=== PATIENT | female | born 1935 | race Caucasian/White ===

== ENCOUNTER 2017-04-24 13:34 | Outpatient (CLI) ==
--- NOTE | 2017-04-24 14:24 | CT ---
Exam: CT thoracic spine without contrast. Clinical indication: Back pain. TECHNIQUE: Axial unenhanced CT images from the lower cervical spine through the upper lumbar spine were obtained followed by coronal and sagittal reformats. Findings: There is a gentle thoracic kyphosis. The remainder of the alignment of the thoracic spine is within normal limits. There is no evidence of acute thoracic vertebral body fracture. The visualized ribs are intact. There is no evidence of spinal stenosis or neural foraminal narrowing throughout the thoracic spine. There is mild multilevel thoracic vertebral degenerative changes. The visualized soft tissues of the abdomen are unremarkable. There are coronary artery calcifications. The remainder of the visualized pulmonary parenchyma and m ediastinal structures are unremarkable. Impression: 1. No acute thoracic fracture. 2. Coronary artery calcifications.
--- NOTE | 2017-04-24 14:28 | CT ---
Exam: CT lumbar spine without contrast. Clinical indication: Low back pain. TECHNIQUE: Axial unenhanced CT images from the lower thoracic spine through the mid sacrum were obt ained followed by coronal and sagittal reformats. Findings: There are no prior studies available for comparison. There are five non-rib bearing lumbar vertebra. The alignment of the lumbar spine is within normal limits. There are no acute lumbar fractures. The T11-T12 through L2-L3 levels are within normal limits, without spinal stenosis or neural foramin al narrowing. At the L3-L4 level there is a asymmetric left broad-based posterior disc osteophyte complex associat e with bilateral facet hypertrophic degenerative changes and ligamentum flavum hypertrophy causing m oderate spinal stenosis and mild right and moderate to severe left neural foraminal narrowing. At the L4-L5 level there is a mild posterior disc osteophyte complex associate with bilateral facet hypertrophic degenerative changes and ligamentum flavum hypertrophy, causing at least moderate bilat eral neural foraminal narrowing. At the L5-S1 level there is a moderate posterior disc osteophyte complex associate with bilateral fa cet hypertrophic degenerative changes, causing moderate to severe right and mild left neural foramin al narrowing, but no spinal stenosis. There is aortoiliac atherosclerotic vascular calcifications. The remainder the visualized soft tiss ues are unremarkable. Impression: 1. Multilevel degenerative changes with spinal stenosis and neural foraminal narrowing, as describe d above on the level by level basis. 2. Aortoiliac atherosclerotic vascular calcifications.
== END 2017-04-24 13:35 | disposition home or self-care (01) ==
LOC: RAD 13:34
PROVIDERS: ATTEND Internal Medicine
DX: M54.9 Dorsalgia, unspecified (principal)

== ENCOUNTER 2017-04-27 09:15 | Outpatient (CLI) ==
--- NOTE | 2017-04-27 10:44 | MAMMO ---
EXAM: Digital screening mammogram HISTORY: Screening COMPARISON: 04/25/2016 FINDINGS: Digital MLO and CC views of the right and left breast were performed. There are scatter ed fibroglandular densities. There is no evidence for mass, asymmetry, distortion, or suspicious ca lcifications in either breast. IMPRESSION: 1. No evidence of malignancy in the right or left breast. 2. Annual screening mammogram is recommended in one year. BIRADS category 1, negative examination
== END 2017-04-27 09:16 ==
LOC: RAD 09:15
PROVIDERS: ATTEND Internal Medicine
DX: Z12.31 Encounter for screening mammogram for malignant neoplasm of breast (principal)

== ENCOUNTER 2017-07-28 08:47 | Outpatient (CLI) ==
[2017-07-28] MEDS ORDERED: PROLIA SUBCUT STA (09:30)
[2017-07-28 09:44] VITALS: BP 118/60; TEMP 97.7
== END 2017-07-28 09:55 | disposition home or self-care (01) ==
LOC: OPMED 08:47
PROVIDERS: ATTEND Internal Medicine
DX: M81.0 Age-related osteoporosis without current pathological fracture (principal)
CPT/HCPCS: 96372

== ENCOUNTER 2017-09-29 10:03 | Emergency (ER) ==
[2017-09-29 10:09] VITALS: BP 131/67; TEMP 98.3; BMI 27.4
--- NOTE | 2017-09-29 11:11 | CT ---
EXAM: CT chest without contrast. HISTORY: Initial presentation for right posterior chest pain and back pain following a fall. COMPARISON: None available. TECHNIQUE: Multiple axial images of the chest were obtained without intravenous contrast. Images we re reformatted in the sagittal and coronal planes. FINDINGS: Bilateral thyroid nodules are not well characterized. Calcified mediastinal and hilar lym ph nodes noted. Heart is mildly enlarged. Atherosclerotic calcifications are present. No pericardi al effusion identified. The lungs are clear without pleural effusion or pneumothorax. Degenerative changes present in the sp ine. No thoracic spine or rib fracture identified. No acute abnormality identified in the upper abdomen. IMPRESSION: No acute post-traumatic abnormality of the chest.
--- NOTE | 2017-09-29 11:14 | CT ---
EXAM: CT thoracic spine without contrast. HISTORY: Initial presentation for back pain following a fall. COMPARISON: 04/24/2017. TECHNIQUE: Multiple axial images of the thoracic spine were obtained without intravenous contrast. Images were reformatted in the sagittal and coronal planes. FINDINGS: The normal curvature and alignment are maintained. Vertebral body and intervertebral disc heights are normal. No fracture or subluxation is seen. Mild multilevel degenerative disc disease noted No significant central canal stenosis identified. Adjacent soft tissues are unremarkable. Visualized lungs are clear. Calcified granulomatous changes noted. Heart is mildly enlarged. Ather osclerotic calcifications are present. Low-density thyroid nodules seen bilaterally. Since the prior study, there has been no significant interval change. IMPRESSION: No acute abnormality of the thoracic spine.
--- NOTE | 2017-09-29 11:17 | CT ---
EXAM: CT of the lumbar spine without contrast History: Lower back pain. Comparison: Thoracic spine CT 09/29/2017, lumbar spine CT 04/24/2017 Technique: Multiplanar CT images through the lumbar spine were obtained without the administration o f IV contrast Findings: Atherosclerotic vascular calcifications. No acute fracture or subluxation of the lumbar spine. Moderate to severe degenerative disc disease at L5-S1 L1-L2: No significant disc bulge, central canal stenosis or neural foraminal narrowing. L1-L2: No significant disc bulge, central canal stenosis or neural foraminal narrowing. L2-L3: Small disc bulge effacing the anterior thecal sac with no significant central canal stenosis or neural foraminal narrowing. L3-L4: Modest left paracentral disc protrusion with moderate central canal stenosis. Moderate to se wilberto left and mild to moderate right bony neural foraminal narrowing secondary to ligamentous and fac et hypertrophy. There may be encroachment of the exiting left nerve root by the disc. L4-L5: Small to moderate left paracentral disc protrusion with mild central canal stenosis. Moderate left and mild right bony neural foraminal narrowing secondary to ligamentous and facet hypertrophy. L5-S1: Small to moderate disc protrusion with mild central canal stenosis. Moderate to severe right and moderate left bony neural foraminal narrowing secondary to uncovertebral and facet hypertrophy. Impression: 1. No acute osseous abnormality of the lumbar spine. 2. Moderate to severe degenerative disc disease at L5-S1. 3. Level by level analysis as detailed above and most significant at L3-L4 where there may be encroa chment of the exiting left nerve root.
--- NOTE | 2017-09-29 11:56 | ED.PDOC ---
General ED Provider: Dr. EMILIANO LONG Chief Complaint: Back Pain Stated Complaint: back pain Time Seen by Physician: 10:00 (fall2 day ago) Mode of Arrival: Walk-In Information Source: Patient Exam Limitations: No limitations Primary Care Provider: HUMZA SAENZ Nursing and Triage Documentation Reviewed and Agree: Yes Musculoskeletal Complaint Exam - Back Pain Complaint/Exam Mechanism of Injury: Reports: No known trauma Onset/Duration: 2 day Symptoms Are: Still present Timing: Constant Episodes Lasting: Minutes Initial Severity: Mild Current Severity: Mild Location: Reports: Discrete Character: Reports: Aching Aggravating: Reports: None Alleviating: Reports: None Associated Signs and Symptoms: Denies: Swelling, Redness, Bruising, Fever, Weakness, Numbness, Tingling, Abdominal pain, Flank pain, Bladder incontinence, Bowel incontinence, Weight loss, Pain with weight bearing TAD Risk Factors: Reports: Hypertension AAA Risk Factors: Reports: Hypertension Cauda Equina Risk Factors: Reports: None Epidural Abcess Risk Factors: Reports: None Related Surgical History: Reports: None Focal Tenderness: No Paraspinal Muscle Tenderness: No Paraspinal Muscle Spasm: No Scoliosis: No Lordosis: No Kyphosis: No SLR Test: Right Negative, Left Negative Hip Motion Testing Pain: Right Negative, Left Negative Focal Weakness: Present: None Focal Sensory Loss: Present: None Differential Diagnoses: Fracture, Sprain Review of Systems - Review Of Systems Constitutional: Reports: No symptoms Eyes: Reports: No symptoms Ears, Nose, Mouth, Throat: Reports: No symptoms Respiratory: Reports: No symptoms Cardiac: Reports: No symptoms GI: Reports: No symptoms : Reports: No symptoms Musculoskeletal: Reports: Back pain Skin: Reports: No symptoms Neurological: Reports: No symptoms Endocrine: Reports: No symptoms Hematologic/Lymphatic: Reports: No symptoms All Other Systems: Reviewed and Negative Past Medical History - Past Medical History Previously Healthy: Yes Endocrine: Reports: Dyslipidemia Cardiovascular: Reports: Hypertension Respiratory: Reports: None Hematological: Reports: None Gastrointestinal: Reports: GERD Genitourinary: Reports: None Neuro/Psych: Reports: None Musculoskeletal: Reports: None Cancer: Reports: None Last Menstrual Period: none - Surgical History General Surgical History: Reports: None - Family History Family History: Reports: None - Social History Smoking Status: Never smoker Hx Substance Use: No Alcohol Screening: None Physical Exam - Physical Exam Appearance: Well-appearing, No pain distress, Well-nourished Eyes: [place], EOMI, Conjunctiva clear ENT: Ears normal, Nose normal, Oropharynx normal Respiratory: Airway patent, Breath sounds clear, Breath sounds equal, Respirations nonlabored Cardiovascular: RRR, Pulses normal, No rub, No murmur GI/: Soft, Nontender, No masses, Bowel sounds normal, No Organomegaly Musculoskeletal: Normal strength, ROM intact, No edema, No calf tenderness Skin: Warm, Dry, Normal color Neurological: Sensation intact, Motor intact, Reflexes intact, Cranial nerves intact, Alert, Oriented Psychiatric: Affect appropriate, Mood appropriate Interpretation - Radiology Interpretation Radiology Interpretation By: Radiologist Radiology Results: No acute changes Critical Care Note - Critical Care Note Total Time (mins): 0 Course - Course Orders, Labs, Meds: Orders Category Date Time Status CT CHEST W/O CONTRAST Stat RADS 09/29/17 10:[address] LUMBAR SPINE W/O CONTRAST Stat RADS 09/29/17 10:[address] THORACIC SPINE W/O CONTRAST Stat RADS 09/29/17 10:13 Completed Vital Signs: Temp Pulse Resp BP Pulse Ox 09/29/17 10:04 98.3 F 68 18 131/67 95 Departure - Departure Time of Disposition: 11:56 Disposition: HOME SELF-CARE Discharge Problem: Low back pain Qualifiers: Chronicity: unspecified Back pain laterality: midline Sciatica presence: without sciatica Qualified Code(s): M54.5 - Low back pain Instructions: Low Back Strain (ED) Condition: Good Pt referred to PMD for follow-up: Yes Additional Instructions: Please call your Family Physician as soon as possible to schedule a follow-up appointment. Allergies/Adverse Reactions: Allergies iron Adverse Reaction (Verified 09/29/17 10:10) Home Medications: Ambulatory Orders Amlodipine Besylate/Benazepril [Lotrel 10-40 mg Capsule] 1 each PO DAILY Aspirin [Adult Low Dose Aspirin EC] 81 mg PO DAILY 08/21/15 Atorvastatin Calcium [Lipitor] 40 mg PO DAILY 08/21/15 Buspirone HCl 5 mg PO QID 08/21/15 Calcitonin,[place],Synthetic [Fortical] 1 spray NS DAILY 08/21/15 Doxepin HCl [Sinequan] 25 mg PO BEDTIME 08/21/15 Esomeprazole Magnesium [Nexium] 40 mg PO BID 08/21/15 Fexofenadine HCl [Thelma] 60 mg PO BID 08/21/15 Furosemide 40 mg PO DAILY 08/21/15 Gabapentin [Neurontin] 300 mg PO TID 08/21/15 Hydrocodone/Acetaminophen [Lortab 5-325 mg Tablet] 1 each PO BID PRN 08/21/15 Lysine HCl [l-Lysine] 500 mg PO DAILY 08/21/15 Multivit-Min/FA/Lycopen/Lutein [Centrum Silver Tablet] 1 each PO DAILY 08/21/15 Polyethylene Glycol 3350 [Miralax] 17 gm PO DAILY 08/21/15 Potassium Chloride 10 meq PO DAILY 08/21/15 Calcium Carbonate/Vitamin D3 [Calcium 500-Vit D3 600 Caplet] 1 each PO DAILY Denosumab [Prolia] 60 mg SQ DIRECTED 09/29/17 Iron 18 mg PO DIRECTED 09/29/17 Lorazepam [Ativan] 0.5 mg PO DAILY PRN 09/29/17 Disposition Discussed With: Patient
== END 2017-09-29 12:13 | disposition home or self-care (01) ==
LOC: ED 10:03
DX: M54.5 Low back pain (principal); W19.XXXA Unspecified fall, initial encounter
CPT/HCPCS: 99283

== ENCOUNTER 2018-01-27 08:41 | Outpatient (CLI) ==
[2018-01-27] MEDS ORDERED: PROLIA SUBCUT STA (09:03)
[2018-01-27 09:05] VITALS: BP 159/72; TEMP 98.4
== END 2018-01-27 09:20 | disposition home or self-care (01) ==
LOC: OPMED 08:41
PROVIDERS: ATTEND Internal Medicine
DX: M81.0 Age-related osteoporosis without current pathological fracture (principal)
CPT/HCPCS: 96372

== ENCOUNTER 2018-05-11 13:20 | Outpatient (CLI) ==
--- NOTE | 2018-05-11 14:55 | DEXA ---
Exam: Bone densitometry DEXA scan performed on the [employer] medical device. Comparison: 04/25/2016. Reason for exam: Osteoporosis. FINDINGS: Imaging is obtained of the lumbar spine and deemed to be adequate for interpretation. Total BMD of the lumbar spine measures 1.191 grams per centimeter squared T-score 0.1. Z-score 1.7 WHO classification suggests normal bone mineral density Imaging was obtained of the right and left hip and deemed to be adequate for interpretation. BMD of the left femoral neck measures 0.725 grams per centimeter squared T-score -2.3. Z-score -0.2 BMD of the right femoral neck measures 0.694 grams per centimeter squared T-score -2.5. Z-score -0.4 The total mean of the left and right hip measures 0.812 grams per centimeter squared T-score -1.5. Z-score 0.3 Impression: 1. WHO classification suggests osteoporosis in the right femoral neck and osteopenia in the left fem oral neck with normal bone mineral density in the lumbar spine. 2. WHO classification (FRAX) 10-year probability of fracture. Major osteoporotic fracture risk over 10 years. 19.4%. Hip fracture risk over 10 years. 6.9%.
== END 2018-05-11 13:21 | disposition home or self-care (01) ==
LOC: RAD 13:20
PROVIDERS: ATTEND Internal Medicine
DX: Z12.31 Encounter for screening mammogram for malignant neoplasm of breast (principal); M81.0 Age-related osteoporosis without current pathological fracture
CPT/HCPCS: 77067

== ENCOUNTER 2018-08-05 08:28 | Outpatient (CLI) | payer OTHER ==
[2018-08-05 08:57] VITALS: BP 112/63; TEMP 98.8
[2018-08-05] MEDS ORDERED: PROLIA SUBCUT STA (09:03)
== END 2018-08-05 08:29 | disposition home or self-care (01) ==
LOC: OPMED 08:28
PROVIDERS: ATTEND Internal Medicine
DX: M81.0 Age-related osteoporosis without current pathological fracture (principal)
CPT/HCPCS: 96372

== ENCOUNTER 2019-03-07 09:27 | Outpatient (CLI) | payer OTHER ==
[2019-03-07 09:42] VITALS: BP 137/74; TEMP 98.2
[2019-03-07] MEDS ORDERED: PROLIA SUBCUT STA (09:51)
== END 2019-03-07 09:28 | disposition home or self-care (01) ==
LOC: OPMED 09:27
PROVIDERS: ATTEND Internal Medicine
DX: M81.0 Age-related osteoporosis without current pathological fracture (principal)
CPT/HCPCS: 96372

== ENCOUNTER 2021-02-28 16:08 | Inpatient (IN) ==
[2021-02-28] MEDS ORDERED: ATROPINE SULFATE PFS IVP PRN (16:49)
[2021-02-28] MEDS ORDERED: NITROSTAT SL PRN (16:49)
[2021-02-28] MEDS ORDERED: TYLENOL PO PRN ×2 (16:49→16:54)
[2021-02-28] MEDS ORDERED: BUSPAR PO PRN (16:54)
[2021-02-28] MEDS ORDERED: NORCO 5-325 PO PRN (16:54)
[2021-02-28] MEDS ORDERED: CLEOCIN 600 MG/50 ML D5W 600 MG/50 ML BAG IV SCH (17:00)
[2021-02-28 17:06] LABS: BASOPHILS % (AUTO) 0.6 % (0.0-3.0); EOSINOPHILS # (AUTO) 0.1 K/ul (0.0-0.7); EOSINOPHILS % (AUTO) 1.1 % (0.0-7.0); HEMATOCRIT 33.9 % (37.0-47.0); HEMOGLOBIN 11.2 g/dl (12.0-16.0); IMMATURE GRANULOCYTE % (AUTO) 0.2 % (0.0-5.0); LYMPHOCYTES % (AUTO) 29.8 (10.0-50.0); MEAN CORPUSCULAR HEMOGLOBIN 30.5 pg (27.0-31.0); MEAN CORPUSCULAR VOLUME 92.4 fl (81.0-99.0); MONOCYTES # (AUTO) 0.6 K/uL (0.4-2.0); MONOCYTES % (AUTO) 9.6 (0-10); NEUTROPHILS # (AUTO) 3.9 K/ul (2.0-6.9); NEUTROPHILS % (AUTO) 58.7 % (42.2-75.2); PLATELET COUNT 174 10^3/uL (140-440); RDW COEFFICIENT OF VARIATION 12.8 % (11.6-14.8); RED BLOOD COUNT 3.67 10^6/ul (4.20-5.40); WHITE BLOOD COUNT 6.64 K/ul (4.6-10.2)
[2021-02-28 17:18] VITALS: BMI 28.5
[2021-02-28 17:19] LABS: ALANINE AMINOTRANSFERASE 9.4 U/L (0-35); ALBUMIN 3.9 g/dL (3.5-5.0); ALKALINE PHOSPHATASE 96.5 U/L (53-141); ASPARTATE AMINO TRANSFERASE 23.9 U/L (14-36); BILIRUBIN,TOTAL 0.48 mg/dL (0.2-1.3); BLOOD UREA NITROGEN 33.7 mg/dL (7-17); CALCIUM 8.62 mg/dL (8.4-10.2); CARBON DIOXIDE 28.5 mmol/L (22-30.0); CHLORIDE 101.9 mmol/L (98-107); CREATININE 1.99 mg/dL (0.60-1.30); GLUCOSE 91.3 mg/dL (74-106); POTASSIUM 3.95 mmol/L (3.5-5.1); SODIUM 138.8 mmol/L (134.5-145); TOTAL PROTEIN 7.1 g/dL (6.3-8.2)
[2021-02-28] MEDS: CLEOCIN 600 MG/50 ML D5W 600 MG/50 ML BAG IV SCH ×2 (17:38→23:03)
[2021-02-28] MEDS: BACTROBAN TP SCH ×2 (17:38→20:07)
[2021-02-28] MEDS: LASIX IVP SCH (17:39)
[2021-02-28] MEDS: NAMENDA PO SCH (20:07)
[2021-02-28] MEDS: NEURONTIN PO SCH (20:07)
[2021-02-28 20:15] LABS: BILIRUBIN,URINE Negative (NEGATIVE); CLARITY,URINE Clear (CLEAR); COLOR,URINE Yellow (YELLOW); GLUCOSE, URINE (UA) Negative (NEGATIVE); KETONES,URINE Negative (NEGATIVE); LEUKOCYTE ESTERASE ,URINE 2+ (NEGATIVE); NITRITE,URINE Negative (NEGATIVE); PH,URINE 5.5 (5-9); PROTEIN,URINE Negative (NEGATIVE); URINE, BLOOD Negative (NEGATIVE); UROBILINOGEN,URINE 0.2 (0.2)
[2021-02-28 20:21] LABS: HYALINE CASTS, URINE 0-2 (NOT PRESENT)
[2021-02-28] MEDS ORDERED: PROTONIX PO SCH (21:00)
[2021-03-01] MEDS: CLEOCIN 600 MG/50 ML D5W 600 MG/50 ML BAG IV SCH ×3 (05:01→20:43)
[2021-03-01 05:31] LABS: BASOPHILS # (AUTO) 0.1 K/uL (0-0.2); BASOPHILS % (AUTO) 0.8 % (0.0-3.0); EOSINOPHILS # (AUTO) 0.1 K/ul (0.0-0.7); EOSINOPHILS % (AUTO) 1.3 % (0.0-7.0); HEMOGLOBIN 10.8 g/dl (12.0-16.0); IMMATURE GRANULOCYTE % (AUTO) 0.3 % (0.0-5.0); LYMPHOCYTES # (AUTO) 2.2 K/uL (0.60-3.4); LYMPHOCYTES % (AUTO) 34.6 (10.0-50.0); MEAN CORPUSCULAR HEMOGLOBIN 29.9 pg (27.0-31.0); MEAN CORPUSCULAR HGB CONC 32.7 (31.8-35.4); MEAN CORPUSCULAR VOLUME 91.4 fl (81.0-99.0); MONOCYTES # (AUTO) 0.6 K/uL (0.4-2.0); MONOCYTES % (AUTO) 9.3 (0-10); NEUTROPHILS # (AUTO) 3.4 K/ul (2.0-6.9); NEUTROPHILS % (AUTO) 53.7 % (42.2-75.2); PLATELET COUNT 163 10^3/uL (140-440); RDW COEFFICIENT OF VARIATION 12.4 % (11.6-14.8); RED BLOOD COUNT 3.61 10^6/ul (4.20-5.40); WHITE BLOOD COUNT 6.36 K/ul (4.6-10.2)
[2021-03-01] MEDS: LASIX IVP SCH (05:32)
[2021-03-01 05:43] LABS: ALANINE AMINOTRANSFERASE 10.1 U/L (0-35); ALBUMIN 3.49 g/dL (3.5-5.0); ALKALINE PHOSPHATASE 95.4 U/L (53-141); BILIRUBIN,TOTAL 0.5 mg/dL (0.2-1.3); BLOOD UREA NITROGEN 34.2 mg/dL (7-17); CALCIUM 8.64 mg/dL (8.4-10.2); CARBON DIOXIDE 28.5 mmol/L (22-30.0); CHLORIDE 100.5 mmol/L (98-107); CREATININE 1.61 mg/dL (0.60-1.30); POTASSIUM 4.04 mmol/L (3.5-5.1); SODIUM 136.4 mmol/L (134.5-145); TOTAL PROTEIN 6.66 g/dL (6.3-8.2)
[2021-03-01] MEDS ORDERED: NITROSTAT SL PRN (07:39)
[2021-03-01] MEDS ORDERED: ATROPINE SULFATE PFS IVP PRN (07:39)
[2021-03-01] MEDS ORDERED: TYLENOL PO PRN (07:39)
[2021-03-01] MEDS: ASPIRIN EC PO SCH (08:55)
[2021-03-01] MEDS: MICRO-K CAP PO SCH (08:55)
[2021-03-01] MEDS: CALCIUM 500 + VIT D 5 MCG (200 IU) TABLET PO SCH (08:55)
[2021-03-01] MEDS: PROTONIX PO SCH ×2 (08:55→17:02)
[2021-03-01] MEDS: ZEBETA PO SCH (08:56)
[2021-03-01] MEDS: LIPITOR PO SCH (08:56)
[2021-03-01] MEDS: LOTENSIN PO SCH (08:56)
[2021-03-01] MEDS: SINEQUAN PO SCH (08:56)
[2021-03-01] MEDS: ARICEPT PO SCH (08:56)
[2021-03-01] MEDS: MULTIVITAMIN TABLET PO SCH (08:56)
[2021-03-01] MEDS: NEURONTIN PO SCH ×3 (08:56→20:43)
[2021-03-01] MEDS: BACTROBAN TP SCH ×2 (08:57→20:43)
[2021-03-01] MEDS ORDERED: NON-FORMULARY MEDICATION (Ferrous Sulfate 325 mg (65 mg iron) Tablet) PO SCH (09:00)
[2021-03-01] MEDS ORDERED: IRON PO SCH (09:00)
[2021-03-01] MEDS ORDERED: CALCIUM PO SCH (09:00)
[2021-03-01] MEDS ORDERED: NORVASC PO SCH (09:00)
[2021-03-01] MEDS ORDERED: NON-FORMULARY MEDICATION PO SCH (09:00)
[2021-03-01] MEDS ORDERED: [UNRECOGNIZED DRUG - OTHER] PO SCH (09:00)
[2021-03-01] MEDS: NON-FORMULARY MEDICATION (Lysine Hcl 500 MG tablet) PO SCH (09:01)
--- NOTE | 2021-03-01 09:30 | PCM.PROG ---
Attending Provider: ATTENDING PROVIDER: Dr. HUMZA SAENZ DATE OF SERVICE: 03/01/21 SUBJECTIVE: This 85 year old /WHITE F was hospitalized 02/28/21 hospitalized with bilateral leg edema and cellulitis, duration a few weeks. She has weeping from both legs. She is taking care of disabled , besides the multiple medical problems that she has. He is also being taken care of by son who doesn't live with him. The patient reluctantly agreed with hospitalization. Legs are looking somewhat better with some wrinkles this morning in both legs with less angry looking skin over both legsno drainage. REVIEW OF SYSTEMS: CONSTITUTIONAL: No night sweats. No fatigue, malaise, lethargy. No fever or chills. HEENT: Eyes: No visual changes. No eye pain. No eye discharge. ENT: No runny nose. No epistaxis. No sinus pain. No odynophagia. No congestion. RESPIRATORY: No cough, no congestion. No hemoptysis. No shortness of breath. CARDIOVASCULAR: No angina symptoms. No CHF symptoms. No atypical chest pain for CAD. No palpitations. No orthopnea.. GASTROINTESTINAL: No abdominal pain. No nausea or vomiting. No diarrhea or constipation. No hematemesis. No hematochezia. GENITOURINARY: No urgency. No frequency. No dysuria. No hematuria. No obstructive symptoms. No discharge. No pain. No significant abnormal bleeding. MUSCULOSKELETAL: No musculoskeletal pain; no joint swelling. NEUROLOGICAL: Awake, alert, oriented to time, place and person. No headache. No neck pain. No syncope. No seizures. No dizziness. PSYCHIATRIC: Not anxious. No depression. No suicidal thoughts. No homicidal thoughts. SKIN: No rash. Positive for redness and edema both legs. ENDOCRINE: No unexplained weight loss. No weight gain. HEMATOLOGIC/LYMPHATIC: No anemia. No purpura. No petechiae. No prolonged or excessive bleeding. No palpable lymph nodes. PHYSICAL EXAMINATION: GENERAL: The patient is awake, alert and oriented, lying/sitting in bed in no distress. VITAL SIGNS: Temperature 98.4 F, Pulse 58, Respiratory Rate 16, BP 124/59, Pulse Ox 94% HEENT: Head normocephalic, atraumatic. Eyes: Extraocular muscles are intact. Pupils are equal, round and reactive to light and accommodation. Ears: No lesions. Nose appeared normal. Throat: No exudate or erythema. NECK: Supple. No JVD, no carotid bruit. No lymphadenopathy or thyromegaly. LUNGS: Clear to auscultation. Percussion note normal. Chest symmetrical. HEART: S1, S2, no S3. No murmurs. No cyanosis or clubbing. No ascites. Pulses: Dorsalis pedis and posterior tibial pulses +1 to +2 both sides. ABDOMEN: Soft. Non-tender. Bowel sounds active. No CVA tenderness. No mass felt. EXTREMITIES: Lower extremity bilaterally with redness and edema, left more than right. Edema is less than yesterday. Full range of motion of all extremities, equal. NEUROLOGIC: No focal deficit. Cranial nerves II through XII are grossly intact. No headache, no double vision or headache. SKIN: Warm and dry. Intact. Turgor-normal. LYMPHATIC: No palpable lymph nodes/no lymphedema. MUSCULOSKELETAL: Normal joints with no swelling. Muscle tone is normal. LAB REVIEW: 03/01/21 05:24 03/01/21 05:24 03/01/21 05:24: Sodium 136.4, Potassium 4.04, Chloride 100.5, Carbon Dioxide 28.5, Anion Gap 11.44, BUN 34.2 H, Creatinine 1.61 H, Estimated GFR (MDRD) 31.00, BUN/Creatinine Ratio 21.24, Glucose 107.0 H, Calcium 8.64, Total Bilirubin 0.50, AST 22.0, ALT 10.1, Alkaline Phosphatase 95.4, Total Protein 6.66, Albumin 3.49 L, Globulin 3.17, Albumin/Globulin Ratio 1.10 03/01/21 05:24: WBC 6.36, RBC 3.61 L, Hgb 10.8 L, Hct 33.0 L, MCV 91.4, MCH 29.9, MCHC 32.7, RDW Coeff of Gabriella 12.4, Plt Count 163, Immature Gran % (Auto) 0.3, Neut % (Auto) 53.7, Lymph % (Auto) 34.6, Nolan % (Auto) 9.3, Eos % (Auto) 1.3, Baso % (Auto) 0.8, Neut # (Auto) 3.4, Lymph # (Auto) 2.2, Nolan # (Auto) 0.6, Eos # (Auto) 0.1, Baso # (Auto) 0.1, Immature Gran # (Auto) 0.0 02/28/21 20:05: Urine Color Yellow, Urine Clarity Clear, Urine pH 5.5, Ur Specific Victor 1.010, Urine Protein Negative, Urine Glucose (UA) Negative, Urine Ketones Negative, Urine Blood Negative, Urine Nitrite Negative, Urine Bilirubin Negative, Urine Urobilinogen 0.2, Ur Leukocyte Esterase 2+ H, Urine Microscopic WBC 5-10, Ur Squamous Epith Cells 2-5, Hyaline Casts 0-2 02/28/21 17:02: Sodium 138.8, Potassium 3.95, Chloride 101.9, Carbon Dioxide 28.5, Anion Gap 12.35, BUN 33.7 H, Creatinine 1.99 H, Estimated GFR (MDRD) 24.00, BUN/Creatinine Ratio 16.93, Glucose 91.3, Calcium 8.62, Total Bilirubin 0.48, AST 23.9, ALT 9.4, Alkaline Phosphatase 96.5, Total Protein 7.10, Albumin 3.90, Globulin 3.20, Albumin/Globulin Ratio 1.21 02/28/21 17:02: WBC 6.64, RBC 3.67 L, Hgb 11.2 L, Hct 33.9 L, MCV 92.4, MCH 30.5, MCHC 33.0, RDW Coeff of Gabriella 12.8, Plt Count 174, Immature Gran % (Auto) 0.2, Neut % (Auto) 58.7, Lymph % (Auto) 29.8, Nolan % (Auto) 9.6, Eos % (Auto) 1.1, Baso % (Auto) 0.6, Neut # (Auto) 3.9, Lymph # (Auto) 2.0, Nolan # (Auto) 0.6, Eos # (Auto) 0.1, Baso # (Auto) 0.0, Immature Gran # (Auto) 0.0 ASSESSMENT: Please see below. 1. Bilateral leg edema with cellulitis. 2. History of hypertension. 3. Chronic kidney disease. 4. Chronic anemia. PLAN: 1. Will monitor blood pressure. May have to substitute Amlodipine with something else for blood pressure. 2. Discontinue Amlodipine. 3. Continue IV Lasix for 2 more days then continue with p.o. Lasix. 4. Continue antibiotics. 5. Elevate legs. 6. Continue Benazepril 40 mg daily. 7. Echocardiogram to be done. 8. Chest x-ray has been ordered. Plan and coordination of the patient's care discussed in the presence of [employer] and nurse. CONDITION: Stable SCRIBED BY: KISHA FONTANA Sap Technical Developer scribed while in presence of service performed by Dr. HUMZA SAENZ on 03/01/21 ([id number])
--- NOTE | 2021-03-01 10:08 | DI ---
EXAM: Chest two views HISTORY: Hypertension, leg edema COMPARISON: None TECHNIQUE: Two views of the chest were performed FINDINGS: The lungs are clear. Trace fissural thickening and/or fluid in the lateral view. No visi ble pneumothorax. The heart is enlarged in size. The mediastinal contour is unchanged, noting ather osclerosis. There are no acute abnormalities of the bones. Old right rib fractures. IMPRESSION: No acute cardiopulmonary process.
--- NOTE | 2021-03-01 11:33 | HP ---
DATE OF SERVICE: 02/28/21 HISTORY OF PRESENT ILLNESS: 85-year-old female with complaint of legs red and swollen, oozing three open areas. She went to [facility] and was given Bactrim. PAST MEDICAL HISTORY: Acute rhinitis. Forgetfulness/Alzheimer's. Chronic kidney disease, Stage 3. History of right shoulder pain. Back pain T & L spine, severe. Osteoporosis - Prolia 02/18. Hypertension. Dyslipidemia. Generalized anxiety disorder. DJD spine. Esophageal stricture. Kyphosis. Cervical radiculopathy. A1C 5.4 on 01/19/21. Advised followups every 3 months PAST SURGICAL HISTORY: Status post hysterectomy REVIEW OF SYSTEMS: CONSTITUTIONAL: Fatigue. No fever. HEENT: No sinus drainage, no sore throat. RESPIRATORY: No cough, no congestion. CARDIOVASCULAR: No atypical chest pain for coronary artery disease. No angina, CHF symptoms, palpitations or shortness of breath. GASTROINTESTINAL: No melena or abdominal pain. No GERD. GENITOURINARY: No hematuria, no polyuria. BOX LOADER: No blackout, no dizziness, no headache, no double vision. MUSCULOSKELETAL: Osteoaoarthritic pain. ENDOCRINE: Increase in weight 6 lbs. SKIN: Not dry, no rash. PSYCHIATRIC: Not anxious, no depression, no suicidal thoughts, no homicidal thoughts. SOCIAL HISTORY: , Nonsmoker. No alcohol use. FAMILY HISTORY: Mother - cerebrovascular accident. MEDICATIONS: [place] 5/325 mg 1/2 b.i.d. Neurontin 300 mg t.i.d. Nexium 40 mg b.i.d. Lipitor 40 mg one daily Amlodipine-Benazepril 10-40 mg daily Lasix 40 mg one daily BuSpar 10 mg 1/2 q.i.d. p.r.n. K-tabs 10 mEq one daily MVI one daily ASA 81 mg one daily L-L6sine 500 mg daily Calcium Plus daily Feosol daily Tylenol 500 mg p.r.n. Tramadol 50 mg p.o. b.i.d. p.r.n. Bisoprolol 10 mg 1/2 tab daily Doxepin 25 mg one p.o. daily Aricept 5 mg p.o. daily Namenda 10 mg p.o. bedtime ALLERGIES: IRON PHYSICAL EXAMINATION: V/S: Pulse 68, BP 124/68, temperature 98.2, 02 sat 98. BMI 26.8. Height 5'5". Weight 161.0. GENERAL APPEARANCE: Oriented times three. HEENT: Normal. NECK: No JVP, no bruits. RESPIRATORY: Lungs are clear. CARDIOVASCULAR: S1, S2, no S3, no murmur. No cyanosis, clubbing. No ascites. GI/ABDOMEN: No tenderness. Bowel sounds are active. EXTREMITIES: +2 left lower extremity edema, +1 right lower extremity edema, clear purulent fluid. Pulses +1, equal. BOX LOADER: Deep tendon reflexes, sensory, motor and gait all normal. RECTAL/PELVIC: Colonoscopy screening 10/19 Dr. Liu. Pelvic- advised yearly. Mammogram 05/19 [facility]; bone density 05/19 [facility]. Refused colocare. ASSESSMENT: 1. Bilateral lower extremity cellulitis. 2. Bilateral leg edema. 3. Acute rhinitis. 4. Forgetfulness/Alzheimer's. 5. Chronic kidney disease, Stage 3. 6. History of right shoulder pain. 7. Back pain T & L spine, severe. 8. Osteoporosis - Prolia 02/18. 9. Hypertension. 10. Dyslipidemia. 11. Generalized anxiety disorder. 12. DJD spine. 13. Esophageal stricture. 14. Kyphosis. 15. Cervical radiculopathy. 16. A1C 5.4 on 01/19/21. PLAN: 1. Admit (respiratory panel by PCR done-went through tent) 2. Routine telemetry orders - no cardiac markers. 3. CBC, CMP now and daily. 4. Elevate legs. 5. Clindamycin 600 mg IV q.8hr. 6. Lasix 40 mg IV daily times two days, hold p.o. 7. Continue other home medications. 8. Regular diet. 9. Wound culture - wounds both legs. 10. Leave legs open to air - apply Bactroban b.i.d. 11. Daily weight. 12. 2D echocardiogram. TIME SPENT: More than 70 minutes. [facility]
--- NOTE | 2021-03-01 13:32 | RS.OTINEVL ---
Subjective - Patient information Date of Evaluation: 03/01/21 Date of Arrival on Unit: 02/28/21 Admitted From:: Home Diagnosis: BLE edema PRECAUTIONS: Fall risk Usual Living Arrangement: With Spouse Living Arrangement Comments: Pt lives at home with her . Pt has 3 steps and a rail to enter the house. 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 - Level of function Prior to this admission, the patient could do the following:: Independent Selfcare, Independent ADL's, Independent Ambulation Abilities prior to this admission: Pt was living at home walking without an assistive device. Pt was cooking, cleaning, and taking care of her . Current Level of Function: Partially Dependent Comments: has pain in her feet during ambulation. Current Equipment Used at Home: has a walker but does not use it at home. Pain Assessment - Pain Pain Score: 5 Side: bilateral Pain Location Body Site: Calf Pain Aggravating Factors: Changing Position, Standing, Walking Pain Alleviating Factors: Medication, Position Change Interventions - Objective Patient Orientation: Person, Place, Time, Situation Current Interventions: IV's, Telemetry Observation: Pt appears weak and has pain in BLE during ambulation. Pt reports she was not planning on coming the the hospital. Pt repeats her sentences 2-3x. Pt has wounds and redness on her bilateral shins. Interventions - ROM Right Upper Extremity AROM: WFL's Left Upper Extremity AROM: WFL's - Strength Right Upper Extremity Strength: Mild Weakness Left Upper Extremity Strength: Mild Weakness Balance - Sitting Balance Static Sitting Balance: Fair Dynamic Sitting Balance: Fair - Standing Balance Static Standing Balance: Fair Dynamic Standing Balance: Fair ADL Skills - Self Feeding Self Feeding: Independent - Grooming Grooming: Set Up Only - Bathing Bathing UE: Set Up Only Bathing LE: Min Assist - Dressing Dressing UE: Independent Dressing LE: Min Assist - Toilet Management Toileting Management: CGA Functional Mobility - Bed Mobility Rolling R/L: Independent Scooting: Independent Supine to Sit: Independent - Ambulation Weight Bearing Status: FWB Assistive Device Used: Rolling Walker Assistance needed with Ambulation: CGA - Safety Awareness Safety Awareness: Fair TASHA INDEX SCORE: . Additional Treatment Performed - Time with patient Length of Evaluation: 19 Total treatment time: 25 Activities Do you enjoy playing games?: Yes Would you be interested in leaving your room for activities?: Yes Would you enjoy group activities?: Yes Do you have difficulty with your vision?: Yes Patient Interests:: Watching Television Patient Education Patient Education: Education of diagnosis, Home Safety, Activity Modification, Education of Plan of Care Teaching Recipient: Patient Teaching Methods: Discussion Assessment Problem List:: Decreased level of function, Requires training/education, Decreased safety/Risk of falls, Weakness, Pain limits previous level of function Rehab Potential: Good Further Therapy Indicated?: Yes Evaluation Complexity: HISTORY: Medium, EXAM OF BODY SYSTEMS: Medium, CLINICAL DECISION MAKING: Medium Patient's Goal(s): To be able to return home as soon as possible. Short Term Goals - Goals GOAL 1: Pt to complete sink level ADLS with RW Mod-Independent. Goal to be met by: 03/05/21 GOAL 2: Pt to increase safety of toilet transfers to SUP. Goal to be met by: 03/05/21 GOAL 3: Pt to increase dyn. std. bal. to Fair+. Goal to be met by: 03/05/21 Legislative Advocate Goals GOAL 1: Pt to be mod-I with ADLS. Goal to be met by: 03/08/21 GOAL 2: Pt to increase safety of toilet transfers to Mod-I.. Goal to be met by: 03/08/21 GOAL 3: Pt to increase dyn. std. bal. to F+/G-. Plan Plan of Care: Therapeutic EX, Therapeutic Activity, Self-Care/Home Management Frequency of Treatment: 1-2 X day, as tolerated Duration of Treatment: 1 Week Anticipated Discharge Destination: Home Treatment Diagnosis (ICD 10 Codes): M62.81 General weakness, Z74.1 Need for assistance with personal care. Has the Physician been added for Co-signature?: Yes
--- NOTE | 2021-03-01 16:14 | RS.PTINEVL ---
Subjective - Patient information Date of Evaluation: 03/01/21 Date of Arrival on Unit: 02/28/21 Admitted From:: Home Diagnosis: BLE edema with cellulitis, difficulty walking, impaired balance Usual Living Arrangement: With Spouse Home Environment: House, Level/No stairs, Rail Medical History: Hypertension, Arthritis Medical History Comments:: CKD, anemia, LATEX ALLERGY?: No Surgical History: Hysterectomy Surgical History Comments:: B cataracts Medications: see chart Subjective Information/ Patient Comments:: pt states that she is doing ok. States she does not use a walker at home and that she is independent with e verything including driving. pt is forgetful and repeats herself multiple times. - Level of function Prior to this admission, the patient could do the following:: Independent Selfcare, Independent ADL's, Independent Ambulation Current Level of Function: Partially Dependent Current Equipment Used at Home: has a walker but does not use it at home. Pain Assessement - Location BLE Description: Aching Pain Behavior: Facial Grimacing Pain Aggravating Factors: Walking Effects of Pain: pt c/o feeling a "little sore" in her legs while ambulating Interventions - Objective Patient Orientation: Person, Place, Situation Current Interventions: IV's, Telemetry Observation: pt with edema BLE with significant erythema with open areas covered with eschar Range of Motion - ROM Right Upper Extremity AROM: WFL's Left Upper Extremity AROM: WFL's Right Lower Extremity AROM: WFL's Left Lower Extremity AROM: WFL's Muscle Strength - Muscle Strength Right Upper Extremity Strength: Mild Weakness (grossly 4/5) Left Upper Extremity Strength: Mild Weakness (grossly 4/5) Right Lower Extremity Strength: Mild Weakness (hip flex 4-/5, knee flex/ext 4/5) Left Lower Extremity Strength: Mild Weakness (hip flex 4-/5, knee flex/ext 4/5) Sensation - Sensation Right Upper Extremity Sensation: Intact/Normal Left Upper Extremity Sensation: Intact/Normal Right Lower Extremity Sensation: Impaired Left Lower Extremity Sensation: Impaired Palpation Palpation Findings: Tenderness (BLE ) Balance - Sitting Balance and Reactions Static Sitting Balance: Good Dynamic Sitting Balance: Fair - Standing Balance and Reactions Static Standing Balance: Poor Dynamic Standing Balance: Poor Standing Equilibrium Reactions: Delayed Left, Delayed Right Standing Protective Reactions: Delayed Left, Delayed Right Functional Mobility - Bed Mobility Rolling R/L: Min Assist, 1 person assist Supine to Sit: Min Assist, 1 person assist - Transfers Sit to Stand: Min Assist (min+), 1 person assist Stand to Sit: Min Assist, 1 person assist - Safety Awareness Safety Awareness: Poor TASHA INDEX SCORE: n/a Ambulation - Ambulation Assistive Device Used: Rolling Walker Orthotic/Prosthetic Device: No Distance: 50ft Assistance needed with Ambulation: Min Assist, 1 person assist Gait Deviations: Forward posture, Short stride, Deviates from path Factors Affecting Ambulation: Decreased Balance, Pain, Weakness, Decreased Safety, Cognitive Status, Limited Endurance Treatment time - Time with patient Length of Evaluation: 19 Total treatment time: 29 Patient Education - Education Patient Education: Activity Modification, Education of Plan of Care Teaching Recipient: Patient Teaching Methods: Discussion Comments: discussion regarding POC Assessment - Assessment Problem List:: Decreased level of function, Requires training/education, Decreased safety/Risk of falls, Weakness, Pain limits previous level of function, Cognitive status limits abilities Rehab Potential: Good Further Therapy Indicated?: Yes Candidate for Swing Bed for Therapy Services?: Feel pt may be at high level of function prior to swing. Would need to reassess at later date. Evaluation Complexity: HISTORY: Medium, EXAM OF BODY SYSTEMS: Medium, CLINICAL PRESENTATION: Medium, CLINICAL DECISION MAKING: Medium Patient's Goal(s): Go back home, my legs to be better Short Term Goals GOAL #1: pt independent with rolling and scooting in bed. Goal to be met by: 03/05/21 GOAL #2: Transfer sup to/from sit with CGA Goal to be met by: 03/05/21 GOAL #3: Sit to/from stand CGA Goal to be met by: 03/05/21 GOAL #4: pt amb with rwx 100ft with CGA no LOB Goal to be met by: 03/05/21 Singing Waiter Or Waitress Goals GOAL #1: pt transfer sup to/from sit to/from stand independently Goal to be met by: 03/07/21 GOAL #2: pt amb functional distances w/w/o AD with no LOB independently Goal to be met by: 03/07/21 GOAL #3: pt ascend/descend 2 steps with HR SBA Goal to be met by: 03/07/21 Plan Plan of Care: Therapeutic EX, Therapeutic Activity Other:: gait training Frequency of Treatment: 1-2 X day, as tolerated Duration of Treatment: 5 days Anticipated Discharge Destination: Home (possibly with PT) Treatment Diagnosis (ICD 10 Codes): gait difficulty R 26.2. impaired balance R 26.81. weakness M 62.81 Has the Physician been added for Co-signature?: Yes
[2021-03-01 16:27] LABS: CREATINE KINASE 158.7 U/L (30-135)
[2021-03-01 16:47] LABS: TROPONIN I < 0.012 ng/ml (0.0000-0.120)
[2021-03-01 16:51] LABS: CREATINE KINASE MB 0.529 ng/ml (0.0-2.38)
[2021-03-01] MEDS: ULTRAM PO PRN (20:42)
[2021-03-01] MEDS: NAMENDA PO SCH (20:42)
[2021-03-02 04:58] LABS: BASOPHILS % (AUTO) 0.5 % (0.0-3.0); EOSINOPHILS # (AUTO) 0.1 K/ul (0.0-0.7); EOSINOPHILS % (AUTO) 1.4 % (0.0-7.0); HEMATOCRIT 33.6 % (37.0-47.0); HEMOGLOBIN 10.8 g/dl (12.0-16.0); IMMATURE GRANULOCYTE % (AUTO) 0.2 % (0.0-5.0); LYMPHOCYTES # (AUTO) 2.7 K/uL (0.60-3.4); LYMPHOCYTES % (AUTO) 41.3 (10.0-50.0); MEAN CORPUSCULAR HEMOGLOBIN 29.7 pg (27.0-31.0); MEAN CORPUSCULAR HGB CONC 32.1 (31.8-35.4); MEAN CORPUSCULAR VOLUME 92.3 fl (81.0-99.0); MONOCYTES # (AUTO) 0.5 K/uL (0.4-2.0); MONOCYTES % (AUTO) 8.2 (0-10); NEUTROPHILS # (AUTO) 3.2 K/ul (2.0-6.9); NEUTROPHILS % (AUTO) 48.4 % (42.2-75.2); PLATELET COUNT 142 10^3/uL (140-440); RDW COEFFICIENT OF VARIATION 12.5 % (11.6-14.8); RED BLOOD COUNT 3.64 10^6/ul (4.20-5.40); WHITE BLOOD COUNT 6.58 K/ul (4.6-10.2)
[2021-03-02 05:11] LABS: ALANINE AMINOTRANSFERASE 8.7 U/L (0-35); ALBUMIN 3.11 g/dL (3.5-5.0); ALKALINE PHOSPHATASE 88.9 U/L (53-141); ASPARTATE AMINO TRANSFERASE 19.6 U/L (14-36); BILIRUBIN,TOTAL 0.4 mg/dL (0.2-1.3); BLOOD UREA NITROGEN 43.2 mg/dL (7-17); CALCIUM 8.7 mg/dL (8.4-10.2); CARBON DIOXIDE 27.7 mmol/L (22-30.0); CHLORIDE 103.6 mmol/L (98-107); CREATININE 1.58 mg/dL (0.60-1.30); GLUCOSE 100.2 mg/dL (74-106); POTASSIUM 4.16 mmol/L (3.5-5.1); SODIUM 138.8 mmol/L (134.5-145); TOTAL PROTEIN 6.01 g/dL (6.3-8.2)
[2021-03-02] MEDS: CLEOCIN 600 MG/50 ML D5W 600 MG/50 ML BAG IV SCH ×3 (05:17→20:42)
[2021-03-02] MEDS: LASIX TAB PO SCH (05:53)
[2021-03-02] MEDS: PROTONIX PO SCH ×2 (05:54→16:19)
[2021-03-02] MEDS: LOTENSIN PO SCH (09:20)
[2021-03-02] MEDS: MULTIVITAMIN TABLET PO SCH (09:20)
[2021-03-02] MEDS: ARICEPT PO SCH (09:20)
[2021-03-02] MEDS: NEURONTIN PO SCH ×3 (09:20→20:41)
[2021-03-02] MEDS: MICRO-K CAP PO SCH (09:20)
[2021-03-02] MEDS: ASPIRIN EC PO SCH (09:20)
[2021-03-02] MEDS: SINEQUAN PO SCH (09:20)
[2021-03-02] MEDS: CALCIUM 500 + VIT D 5 MCG (200 IU) TABLET PO SCH (09:20)
[2021-03-02] MEDS: BACTROBAN TP SCH (09:21)
[2021-03-02] MEDS: LIPITOR PO SCH (09:21)
[2021-03-02] MEDS: ZEBETA PO SCH (09:21)
[2021-03-02] MEDS: NON-FORMULARY MEDICATION (Lysine Hcl 500 MG tablet) PO SCH (09:29)
[2021-03-02] MEDS: ULTRAM PO PRN (09:29)
[2021-03-02] MEDS ORDERED: VANCOMYCIN 1 GM in SODIUM CHLORIDE 250 ML IV ONE (12:30)
[2021-03-02] MEDS: NAMENDA PO SCH (20:42)
[2021-03-03] MEDS: ULTRAM PO PRN ×3 (05:16→20:41)
[2021-03-03] MEDS: CLEOCIN 600 MG/50 ML D5W 600 MG/50 ML BAG IV SCH ×3 (05:16→20:41)
[2021-03-03 05:24] LABS: BASOPHILS % (AUTO) 0.5 % (0.0-3.0); EOSINOPHILS # (AUTO) 0.1 K/ul (0.0-0.7); EOSINOPHILS % (AUTO) 1.1 % (0.0-7.0); HEMATOCRIT 40.9 % (37.0-47.0); HEMOGLOBIN 13.3 g/dl (12.0-16.0); IMMATURE GRANULOCYTE % (AUTO) 0.3 % (0.0-5.0); LYMPHOCYTES # (AUTO) 3.1 K/uL (0.60-3.4); LYMPHOCYTES % (AUTO) 41.3 (10.0-50.0); MEAN CORPUSCULAR HGB CONC 32.5 (31.8-35.4); MEAN CORPUSCULAR VOLUME 92.1 fl (81.0-99.0); MONOCYTES # (AUTO) 0.5 K/uL (0.4-2.0); MONOCYTES % (AUTO) 6.8 (0-10); NEUTROPHILS # (AUTO) 3.8 K/ul (2.0-6.9); PLATELET COUNT 219 10^3/uL (140-440); RDW COEFFICIENT OF VARIATION 12.7 % (11.6-14.8); RED BLOOD COUNT 4.44 10^6/ul (4.20-5.40); WHITE BLOOD COUNT 7.51 K/ul (4.6-10.2)
[2021-03-03 05:36] LABS: ALANINE AMINOTRANSFERASE 10.6 U/L (0-35); ALBUMIN 4.28 g/dL (3.5-5.0); ALKALINE PHOSPHATASE 113.5 U/L (53-141); ASPARTATE AMINO TRANSFERASE 26.6 U/L (14-36); BILIRUBIN,TOTAL 0.64 mg/dL (0.2-1.3); BLOOD UREA NITROGEN 35.4 mg/dL (7-17); CALCIUM 9.26 mg/dL (8.4-10.2); CARBON DIOXIDE 28.2 mmol/L (22-30.0); CHLORIDE 103.7 mmol/L (98-107); CREATININE 1.19 mg/dL (0.60-1.30); GLUCOSE 95.6 mg/dL (74-106); POTASSIUM 4.06 mmol/L (3.5-5.1); SODIUM 140.1 mmol/L (134.5-145); TOTAL PROTEIN 8.23 g/dL (6.3-8.2)
[2021-03-03] MEDS: LASIX TAB PO SCH (05:43)
[2021-03-03] MEDS: PROTONIX PO SCH ×2 (05:43→16:00)
[2021-03-03] MEDS: VANCOMYCIN 1 GM in SODIUM CHLORIDE 250 ML IV SCH (08:44)
[2021-03-03] MEDS: FAMVIR PO SCH (08:44)
[2021-03-03] MEDS: LOTENSIN PO SCH (08:44)
[2021-03-03] MEDS: ZEBETA PO SCH (08:44)
[2021-03-03] MEDS: LIPITOR PO SCH (08:45)
[2021-03-03] MEDS: NEURONTIN PO SCH ×3 (08:45→20:40)
[2021-03-03] MEDS: MICRO-K CAP PO SCH (08:45)
[2021-03-03] MEDS: CALCIUM 500 + VIT D 5 MCG (200 IU) TABLET PO SCH (08:46)
[2021-03-03] MEDS: ASPIRIN EC PO SCH (08:46)
[2021-03-03] MEDS: SINEQUAN PO SCH (08:46)
[2021-03-03] MEDS: MULTIVITAMIN TABLET PO SCH (08:46)
[2021-03-03] MEDS: NON-FORMULARY MEDICATION (Lysine Hcl 500 MG tablet) PO SCH (08:46)
[2021-03-03] MEDS: ARICEPT PO SCH (08:55)
[2021-03-03] MEDS: BUSPAR PO SCH ×4 (12:55→20:40)
[2021-03-03] MEDS: NAMENDA PO SCH (20:40)
[2021-03-04] MEDS: CLEOCIN 600 MG/50 ML D5W 600 MG/50 ML BAG IV SCH (05:26)
[2021-03-04] MEDS: PROTONIX PO SCH ×2 (05:30→17:37)
[2021-03-04] MEDS: LASIX TAB PO SCH (05:30)
[2021-03-04 05:52] LABS: BASOPHILS % (AUTO) 0.5 % (0.0-3.0); EOSINOPHILS # (AUTO) 0.1 K/ul (0.0-0.7); EOSINOPHILS % (AUTO) 1.4 % (0.0-7.0); HEMATOCRIT 40.1 % (37.0-47.0); HEMOGLOBIN 12.7 g/dl (12.0-16.0); IMMATURE GRANULOCYTE % (AUTO) 0.1 % (0.0-5.0); LYMPHOCYTES # (AUTO) 3.3 K/uL (0.60-3.4); LYMPHOCYTES % (AUTO) 38.8 (10.0-50.0); MEAN CORPUSCULAR HEMOGLOBIN 29.4 pg (27.0-31.0); MEAN CORPUSCULAR HGB CONC 31.7 (31.8-35.4); MEAN CORPUSCULAR VOLUME 92.8 fl (81.0-99.0); MONOCYTES # (AUTO) 0.7 K/uL (0.4-2.0); MONOCYTES % (AUTO) 7.9 (0-10); NEUTROPHILS # (AUTO) 4.3 K/ul (2.0-6.9); NEUTROPHILS % (AUTO) 51.3 % (42.2-75.2); PLATELET COUNT 198 10^3/uL (140-440); RDW COEFFICIENT OF VARIATION 12.5 % (11.6-14.8); RED BLOOD COUNT 4.32 10^6/ul (4.20-5.40); WHITE BLOOD COUNT 8.38 K/ul (4.6-10.2)
[2021-03-04 06:04] LABS: ALANINE AMINOTRANSFERASE 9.4 U/L (0-35); ALBUMIN 3.83 g/dL (3.5-5.0); ALKALINE PHOSPHATASE 107.6 U/L (53-141); ASPARTATE AMINO TRANSFERASE 21.6 U/L (14-36); BILIRUBIN,TOTAL 0.55 mg/dL (0.2-1.3); BLOOD UREA NITROGEN 33.3 mg/dL (7-17); CALCIUM 8.89 mg/dL (8.4-10.2); CARBON DIOXIDE 26.5 mmol/L (22-30.0); CHLORIDE 104.6 mmol/L (98-107); CREATININE 1.27 mg/dL (0.60-1.30); GLUCOSE 94.3 mg/dL (74-106); POTASSIUM 4.3 mmol/L (3.5-5.1); SODIUM 139.4 mmol/L (134.5-145); TOTAL PROTEIN 7.43 g/dL (6.3-8.2)
[2021-03-04] MEDS ORDERED: LASIX IVP ONE (08:26)
[2021-03-04] MEDS: VANCOMYCIN 1 GM in SODIUM CHLORIDE 250 ML IV SCH (09:23)
[2021-03-04] MEDS: CALCIUM 500 + VIT D 5 MCG (200 IU) TABLET PO SCH (09:23)
[2021-03-04] MEDS: SINEQUAN PO SCH (09:24)
[2021-03-04] MEDS: LOTENSIN PO SCH (09:24)
[2021-03-04] MEDS: ZEBETA PO SCH (09:24)
[2021-03-04] MEDS: MICRO-K CAP PO SCH (09:24)
[2021-03-04] MEDS: MULTIVITAMIN TABLET PO SCH (09:24)
[2021-03-04] MEDS: ASPIRIN EC PO SCH (09:25)
[2021-03-04] MEDS: LIPITOR PO SCH (09:25)
[2021-03-04] MEDS: FAMVIR PO SCH (09:25)
[2021-03-04] MEDS: BUSPAR PO SCH ×4 (09:26→20:22)
[2021-03-04] MEDS: ARICEPT PO SCH (09:26)
[2021-03-04] MEDS: NON-FORMULARY MEDICATION (Lysine Hcl 500 MG tablet) PO SCH (09:28)
[2021-03-04] MEDS: NEURONTIN PO SCH ×3 (09:28→20:22)
--- NOTE | 2021-03-04 09:57 | PCM.PROG ---
Attending Provider: ATTENDING PROVIDER: Dr. HUMZA DURBIN This patient is seen with Terri Otto, Nurse Practitioner. DATE OF SERVICE: 03/04/21 SUBJECTIVE: This 85 year old /WHITE F was hospitalized 02/28/21. The patient is sitting in chair resting comfortably. Right lower extremity redness has improved. Open areas have scabbed and are drying. Swelling slightly improved. REVIEW OF SYSTEMS: CONSTITUTIONAL: No night sweats. No fatigue, malaise, lethargy. No fever or chills. HEENT: Eyes: No visual changes. No eye pain. No eye discharge. ENT: No runny nose. No epistaxis. No sinus pain. No odynophagia. No congestion. RESPIRATORY: No cough, no congestion. No hemoptysis. No shortness of breath. CARDIOVASCULAR: No angina symptoms. No CHF symptoms. No atypical chest pain for CAD. No palpitations. No orthopnea.. GASTROINTESTINAL: No abdominal pain. No nausea or vomiting. No diarrhea or constipation. No hematemesis. No hematochezia. GENITOURINARY: No urgency. No frequency. No dysuria. No hematuria. No obstructive symptoms. No discharge. No pain. No significant abnormal bleeding. MUSCULOSKELETAL: No musculoskeletal pain; no joint swelling. NEUROLOGICAL: Awake, alert, oriented to time, place and person. No headache. No neck pain. No syncope. No seizures. No dizziness. PSYCHIATRIC: Not anxious. No depression. No suicidal thoughts. No homicidal thoughts. SKIN: No rash. Leg edema and redness. ENDOCRINE: No unexplained weight loss. No weight gain. HEMATOLOGIC/LYMPHATIC: No anemia. No purpura. No petechiae. No prolonged or excessive bleeding. No palpable lymph nodes. PHYSICAL EXAMINATION: GENERAL: The patient is awake, alert and oriented, lying/sitting in bed in no distress. VITAL SIGNS: Temperature 98.1 F, Pulse 67, Respiratory Rate 18, BP 155/63, Pulse Ox 97% HEENT: Head normocephalic, atraumatic. Eyes: Extraocular muscles are intact. Pupils are equal, round and reactive to light and accommodation. Ears: No lesi ons. Nose appeared normal. Throat: No exudate or erythema. NECK: Supple. No JVD, no carotid bruit. No lymphadenopathy or thyromegaly. LUNGS: Diminished breath sounds. Clear to auscultation. Percussion note normal. Chest symmetrical. HEART: S1, S2, no S3. No murmurs. No cyanosis or clubbing. No ascites. Pulses: Dorsalis pedis and posterior tibial pulses +1 to +2 both sides. ABDOMEN: Soft. Non-tender. Bowel sounds active. No CVA tenderness. No mass felt. EXTREMITIES: Right lower extremity with improving erythema and trace edema. Left lower extremity with +2 edema, erythema from the ankle to mid hobbs anterior only. Two 1 inch wounds dry and scabbed, no drainage. Full range of motion of all extremities, equal. NEUROLOGIC: No focal deficit. Cranial nerves II through XII are grossly intact. No headache. No double vision. SKIN: Not dry. Intact. Turgor-normal. LYMPHATIC: No palpable lymph nodes/no lymphedema. MUSCULOSKELETAL: Normal joints with no swelling. Muscle tone is normal. LAB REVIEW: 03/04/21 05:45 03/04/21 05:45 03/04/21 05:45: Sodium 139.4, Potassium 4.30, Chloride 104.6, Carbon Dioxide 26.5, Anion Gap 12.60, BUN 33.3 H, Creatinine 1.27, Estimated GFR (MDRD) 40.00, BUN/Creatinine Ratio 26.22, Glucose 94.3, Calcium 8.89, Total Bilirubin 0.55, AST 21.6, ALT 9.4, Alkaline Phosphatase 107.6, Total Protein 7.43, Albumin 3.83, Globulin 3.60, Albumin/Globulin Ratio 1.06 03/04/21 05:45: WBC 8.38, RBC 4.32, Hgb 12.7, Hct 40.1, MCV 92.8, MCH 29.4, MCHC 31.7 L, RDW Coeff of Gabriella 12.5, Plt Count 198, Immature Gran % (Auto) 0.1, Neut % (Auto) 51.3, Lymph % (Auto) 38.8, [place] % (Auto) 7.9, Eos % (Auto) 1.4, Baso % (Auto) 0.5, Neut # (Auto) 4.3, Lymph # (Auto) 3.3, Austin # (Auto) 0.7, Eos # (Auto) 0.1, Baso # (Auto) 0.0, Immature Gran # (Auto) 0.0 ASSESSMENT: Please see below. 1. Bilateral leg edema with cellulitis. 2. History of hypertension. 3. Chronic kidney disease. 4. Chronic anemia. PLAN: 1. Bilateral venous doppler. 2. Keep legs elevated. 3. Give additional Lasix 20 mg IV now. Plan and coordination of the patient's care discussed in the presence of Fabric Cutter and nurse. CONDITION: Stable SCRIBED BY: KISHA FONTANA Male Impersonator scribed while in presence of service performed by Dr. Durbin/Terri Otto APRN on 03/04/21 ([id number])
[2021-03-04] MEDS: MAXIPIME 2 GM/50 ML D5W 2 GM/50 ML BAG IV SCH ×2 (11:24→20:22)
--- NOTE | 2021-03-04 13:14 | US ---
Exam: Watts-scale and color ultrasonographic evaluation of the right and left lower extremity venous structures of spectral waveform analysis. Comparison: None available. Reason for exam: Cellulitis. FINDINGS: There is spontaneous flow with compression and augmentation in the right and left common f emoral, greater saphenous, profunda, superficial femoral, popliteal, peroneal, posterior tibial, and anterior tibial veins. Impression: No ultrasonographic evidence of thrombus in the right or left lower extremity venous structures.
--- NOTE | 2021-03-04 14:57 | PN ---
DATE OF SERVICE: 03/03/2021 SUBJECTIVE: 85 year old white female hospitalized with bilateral lower extremity cellulitis and leg edema. The patient's legs were weeping, superficial ulcers. The patient has been on Vancomycin and Clindamycin. She doesn't have much pain as she had when she came in. REVIEW OF SYSTEMS: CONSTITUTIONAL: No night sweats. No fatigue, malaise, lethargy. No fever or chills. HEENT: Eyes: No visual changes. No eye pain. No eye discharge. ENT: No runny nose. No epistaxis. No sinus pain. No sore throat. No odynophagia. No congestion. RESPIRATORY: No cough, no congestion. No hemoptysis. No shortness of breath. CARDIOVASCULAR: No angina symptoms. No CHF symptoms. No atypical chest pain for CAD. No palpitations. No PND. No orthopnea. GASTROINTESTINAL: No abdominal pain. No nausea or vomiting. No diarrhea or constipation. No hematemesis. No hematochezia. GENITOURINARY: No urgency. No frequency. No dysuria. No hematuria. No obstructive symptoms. No discharge. No pain. No significant abnormal bleeding. MUSCULOSKELETAL: No musculoskeletal pain; no joint swelling. NEUROLOGICAL: No headache. No neck pain. No syncope. No seizures. No dizziness. PSYCHIATRIC: Anxious about the that she takes care of sitting with her at present time. No depression. No suicidal thoughts. No homicidal thoughts. SKIN: No rash. No lesions. No wounds. ENDOCRINE: No unexplained weight loss. No weight gain. HEMATOLOGIC/LYMPHATIC: No anemia. No purpura. No petechiae. No prolonged or excessive bleeding. No palpable lymph nodes. PHYSICAL EXAMINATION: VITAL SIGNS: Temperature 98.4, pulse 60, respiratory rate 14, blood pressure 125/76, pulse ox 96%. HEENT: Head normocephalic, atraumatic. Eyes: Extraocular muscles are intact. Pupils are equal, round and reactive to light and accommodation. Ears: No lesions. Nose appeared normal. Throat: No exudate or erythema. NECK: Supple. No JVD, no carotid bruit. No lymphadenopathy or thyromegaly. LUNGS: Decreased breath sounds but clear to auscultation. Percussion note normal. Chest symmetrical. HEART: S1, S2, no S3. No murmurs. No cyanosis or clubbing. No ascites. Pulses: Dorsalis pedis and posterior tibial pulses +1 to +2 bilaterally. ABDOMEN: Soft. Nontender. Bowel sounds active. No CVA tenderness. No mass felt. EXTREMITIES: Left leg has edema +1 with lower half is red. Intesity of redness is less than when she came in. Some drying up of swelling with inflammation the patient had some ulcers which have healthy looking eschar. Right leg is a lot better with less swelling. No real ulceration noted. Full range of motion of all extremities, equal. NEUROLOGIC: No focal deficit. Cranial nerves II through XII are grossly intact. No headache. No double vision. SKIN: Not dry. Intact. Turgor - normal. LYMPHATIC: No palpable lymph nodes/no lymphedema. MUSCULOSKELETAL: Normal joints with no swelling. Muscle tone is normal. LABS: Hgb 13.3, hct 40, WBC 7,500 normal differential, creatinine 1.1, BUN 35, potassium 4 ASSESSMENT: 1. 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 The patient also has multiple medical problems. PLAN: 1. Needs to elevate the legs 2. Continue IV Lasix 3. Monitor the kidney functions 4. Continue Antibiotics 5. Vancomycin was added along with Clindamycin CONDITION: Stable. It is to be noted that she may end up with Wound Care. The edema is controlled. The patient's echo is pending. TIME SPENT: More than 30 minutes. Plan and coordination of the patient's care discussed in the presence of nurse. JORDAN
[2021-03-04] MEDS: NAMENDA PO SCH (20:23)
[2021-03-05 04:45] LABS: BASOPHILS % (AUTO) 0.5 % (0.0-3.0); EOSINOPHILS # (AUTO) 0.1 K/ul (0.0-0.7); EOSINOPHILS % (AUTO) 0.6 % (0.0-7.0); HEMATOCRIT 32.6 % (37.0-47.0); HEMOGLOBIN 10.7 g/dl (12.0-16.0); IMMATURE GRANULOCYTE % (AUTO) 0.2 % (0.0-5.0); LYMPHOCYTES # (AUTO) 2.5 K/uL (0.60-3.4); LYMPHOCYTES % (AUTO) 28.9 (10.0-50.0); MEAN CORPUSCULAR HEMOGLOBIN 29.7 pg (27.0-31.0); MEAN CORPUSCULAR HGB CONC 32.8 (31.8-35.4); MEAN CORPUSCULAR VOLUME 90.6 fl (81.0-99.0); MONOCYTES # (AUTO) 0.9 K/uL (0.4-2.0); MONOCYTES % (AUTO) 9.9 (0-10); NEUTROPHILS # (AUTO) 5.1 K/ul (2.0-6.9); NEUTROPHILS % (AUTO) 59.9 % (42.2-75.2); PLATELET COUNT 181 10^3/uL (140-440); RDW COEFFICIENT OF VARIATION 12.6 % (11.6-14.8); WHITE BLOOD COUNT 8.56 K/ul (4.6-10.2)
[2021-03-05 04:59] LABS: ALANINE AMINOTRANSFERASE 7.7 U/L (0-35); ALBUMIN 3.31 g/dL (3.5-5.0); ASPARTATE AMINO TRANSFERASE 20.9 U/L (14-36); BILIRUBIN,TOTAL 0.65 mg/dL (0.2-1.3); BLOOD UREA NITROGEN 34.6 mg/dL (7-17); CALCIUM 8.47 mg/dL (8.4-10.2); CARBON DIOXIDE 26.7 mmol/L (22-30.0); CHLORIDE 103.7 mmol/L (98-107); CREATININE 1.4 mg/dL (0.60-1.30); GLUCOSE 107.8 mg/dL (74-106); POTASSIUM 4.07 mmol/L (3.5-5.1); SODIUM 135.9 mmol/L (134.5-145); TOTAL PROTEIN 6.53 g/dL (6.3-8.2)
[2021-03-05] MEDS: LASIX TAB PO SCH (06:18)
[2021-03-05] MEDS: PROTONIX PO SCH ×2 (06:18→17:53)
[2021-03-05] MEDS ORDERED: SODIUM CHLORIDE 1,000 ML IV SCH (09:00)
[2021-03-05] MEDS: MAXIPIME 2 GM/50 ML D5W 2 GM/50 ML BAG IV SCH ×2 (09:17→20:34)
[2021-03-05] MEDS: ASPIRIN EC PO SCH (09:18)
[2021-03-05] MEDS: FAMVIR PO SCH (09:18)
[2021-03-05] MEDS: ZEBETA PO SCH (09:19)
[2021-03-05] MEDS: SINEQUAN PO SCH (09:19)
[2021-03-05] MEDS: BUSPAR PO SCH ×4 (09:19→20:33)
[2021-03-05] MEDS: LOTENSIN PO SCH (09:19)
[2021-03-05] MEDS: MULTIVITAMIN TABLET PO SCH (09:20)
[2021-03-05] MEDS: CALCIUM 500 + VIT D 5 MCG (200 IU) TABLET PO SCH (09:20)
[2021-03-05] MEDS: LIPITOR PO SCH (09:20)
[2021-03-05] MEDS: NEURONTIN PO SCH ×3 (09:20→20:33)
[2021-03-05] MEDS: MICRO-K CAP PO SCH (09:20)
[2021-03-05] MEDS: ARICEPT PO SCH (09:20)
--- NOTE | 2021-03-05 09:35 | PCM.PROG ---
Attending Provider: ATTENDING PROVIDER: Dr. HUMZA SAENZ This patient is seen with Terri Otto, Nurse Practitioner. DATE OF SERVICE: 03/05/21 SUBJECTIVE: This 85 year old /WHITE F was hospitalized 02/28/21. Lying in bed resting comfortably. Redness left lower extremity slightly improved. Leg edema also improved from yesterday. No fever. Changed antibiotics yesterday to Cefepime and Vancomycin. REVIEW OF SYSTEMS: CONSTITUTIONAL: No night sweats. No fatigue, malaise, lethargy. No fever or chills. HEENT: Eyes: No visual changes. No eye pain. No eye discharge. ENT: No runny nose. No epistaxis. No sinus pain. No odynophagia. No congestion. RESPIRATORY: No cough, no congestion. No hemoptysis. No shortness of breath. CARDIOVASCULAR: No angina symptoms. No CHF symptoms. No atypical chest pain for CAD. No palpitations. No orthopnea.. GASTROINTESTINAL: No abdominal pain. No nausea or vomiting. No diarrhea or constipation. No hematemesis. No hematochezia. GENITOURINARY: No urgency. No frequency. No dysuria. No hematuria. No obstructive symptoms. No discharge. No pain. No significant abnormal bleeding. MUSCULOSKELETAL: Leg edema, leg redness. No musculoskeletal pain; no joint swelling. NEUROLOGICAL: Awake, alert, oriented to time, place and person. No headache. No neck pain. No syncope. No seizures. No dizziness. PSYCHIATRIC: Not anxious. No depression. No suicidal thoughts. No homicidal thoughts. SKIN: No rash. No lesions. No wounds. ENDOCRINE: No unexplained weight loss. No weight gain. HEMATOLOGIC/LYMPHATIC: No anemia. No purpura. No petechiae. No prolonged or excessive bleeding. No palpable lymph nodes. PHYSICAL EXAMINATION: GENERAL: The patient is awake, alert and oriented, lying/sitting in bed in no distress. VITAL SIGNS: Temperature 98.9 F, Pulse 67, Respiratory Rate 18, BP 146/63, Pulse Ox 93% HEENT: Head normocephalic, atraumatic. Eyes: Extraocular muscles are intact. Pupils are equal, round and reactive to light and accommodation. Ears: No lesions. Nose appeared normal. Throat: No exudate or erythema. NECK: Supple. No JVD, no carotid bruit. No lymphadenopathy or thyromegaly. LUNGS: Diminished breath sounds. Clear to auscultation. Percussion note normal. Chest symmetrical. HEART: S1, S2, no S3. No murmurs. No cyanosis or clubbing. No ascites. Pulses: Dorsalis pedis and posterior tibial pulses +1 to +2 both sides. ABDOMEN: Soft. Non-tender. Bowel sounds active. No CVA tenderness. No mass felt. EXTREMITIES: Left lower extremity trace edema with improving erythema on ant erior aspect. Right lower extremity no edema, no redness. Full range of motion of all extremities, equal. NEUROLOGIC: No focal deficit. Cranial nerves II through XII are grossly intact. No headache. No double vision. SKIN: Not dry. Intact. Turgor-normal. LYMPHATIC: No palpable lymph nodes/no lymphedema. MUSCULOSKELETAL: Normal joints with no swelling. Muscle tone is normal. LAB REVIEW: 03/05/21 04:30 03/05/21 04:30 03/05/21 04:30: Sodium 135.9, Potassium 4.07, Chloride 103.7, Carbon Dioxide 26.7, Anion Gap 9.57, BUN 34.6 H, Creatinine 1.40 H, Estimated GFR (MDRD) 36.00, BUN/Creatinine Ratio 24.71, Glucose 107.8 H, Calcium 8.47, Total Bilirubin 0.65, AST 20.9, ALT 7.7, Alkaline Phosphatase 95.0, Total Protein 6.53, Albumin 3.31 L , Globulin 3.22, Albumin/Globulin Ratio 1.02 03/05/21 04:30: WBC 8.56, RBC 3.60 L, Hgb 10.7 L, Hct 32.6 L D, MCV 90.6, MCH 29.7, MCHC 32.8, RDW Coeff of Gabriella 12.6, Plt Count 181, Immature Gran % (Auto) 0.2, Neut % (Auto) 59.9, Lymph % (Auto) 28.9, Schleicher % (Auto) 9.9, Eos % (Auto) 0.6, Baso % (Auto) 0.5, Neut # (Auto) 5.1, Lymph # (Auto) 2.5, Schleicher # (Auto) 0.9, Eos # (Auto) 0.1, Baso # (Auto) 0.0, Immature Gran # (Auto) 0.0 ASSESSMENT: Please see below. 1. Bilateral lower extremity cellulitis left greater than right. 2. Underlying chronic kidney disease. 3. Generalized weakness. PLAN: 1. Continue IV antibiotics. 2. Keep legs elevated. 3. IV fluids NS 50 mL/hr times one bag. Plan and coordination of the patient's care discussed in the presence of Lead Quality Technician and nurse. CONDITION: Stable SCRIBED BY: KISHA FONTANA Diesel Powerplant Mechanic scribed while in presence of service performed by Dr. Saenz/Terri Otto APRN on 03/05/21 ([id number])
--- NOTE | 2021-03-05 09:46 | PN ---
DATE OF SERVICE: 03/02/2021 SUBJECTIVE: 85 year old white female hospitalized with bilateral lower extremity edema with cellulitis. No more oozing. The patient still has redness. Ulcers have been scabbed over with no discharge. REVIEW OF SYSTEMS: CONSTITUTIONAL: No night sweats. No fatigue, malaise, lethargy. No fever or chills. HEENT: Eyes: No visual changes. No eye pain. No eye discharge. ENT: No runny nose. No epistaxis. No sinus pain. No sore throat. No odynophagia. No congestion. RESPIRATORY: No cough, no congestion. No hemoptysis. No shortness of breath. CARDIOVASCULAR: No angina symptoms. No CHF symptoms. No atypical chest pain for CAD. No palpitations. No PND. No orthopnea. GASTROINTESTINAL: No abdominal pain. No nausea or vomiting. No diarrhea or constipation. No hematemesis. No hematochezia. GENITOURINARY: No urgency. No frequency. No dysuria. No hematuria. No obstructive symptoms. No discharge. No pain. No significant abnormal bleeding. MUSCULOSKELETAL: No musculoskeletal pain; no joint swelling. NEUROLOGICAL: No headache. No neck pain. No syncope. No seizures. No dizziness. PSYCHIATRIC: Not anxious. No depression. No suicidal thoughts. No homicidal thoughts. SKIN: No rash. No lesions. No wounds. ENDOCRINE: No unexplained weight loss. No weight gain. HEMATOLOGIC/LYMPHATIC: No anemia. No purpura. No petechiae. No prolonged or excessive bleeding. No palpable lymph nodes. PHYSICAL EXAMINATION: VITAL SIGNS: Temperature 98.2, pulse 58, respiratory rate 18, blood pressure 140/70 and pulse ox 94% on room air. HEENT: Head normocephalic, atraumatic. Eyes: Extraocular muscles are intact. Pupils are equal, round and reactive to light and accommodation. Ears: No lesions. Nose appeared normal. Throat: No exudate or erythema. NECK: Supple. No JVD, no carotid bruit. No lymphadenopathy or thyromegaly. LUNGS: Decreased breath sounds but clear to auscultation. Percussion note normal. Chest symmetrical. HEART: S1, S2, no S3. No murmurs. No cyanosis or clubbing. No ascites. Pulses: Dorsalis pedis and posterior tibial pulses +1 to +2 bilaterally. ABDOMEN: Soft. Nontender. Bowel sounds active. No CVA tenderness. No mass felt. EXTREMITIES: Full range of motion of all extremities, equal. Left more swollen and has redness with ulcers than the right. 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 NEUROLOGIC: No focal deficit. Cranial nerves II through XII are grossly intact. No headache. No double vision. SKIN: Not dry. Intact. Turgor - normal. LYMPHATIC: No palpable lymph nodes/no lymphedema. MUSCULOSKELETAL: Normal joints with no swelling. Muscle tone is normal. LABS: Hgb 10.8, hct 33, WBC 6,500 normal differential, creatinine 1.5, BUN 43, potassium 4.1. Troponin negative. ASSESSMENT: 1. Bilateral leg edema with cellulitis of both lower extremities, left more than the right, Condition has somewhat improved with no oozing of fluid from her legs. Edema is definitely down with some redness still persists. PLAN: 1. Continue Clindamycin 2. Add Vancomycin 3. Cardiovascular status is stable. 4. Echo pending. TIME SPENT: More than 30 minutes. Plan and coordination of the patient's care discussed in the presence of nurse. JORDAN
[2021-03-05] MEDS: VANCOMYCIN 1 GM in SODIUM CHLORIDE 250 ML IV SCH (10:22)
[2021-03-05] MEDS: NON-FORMULARY MEDICATION (Lysine Hcl 500 MG tablet) PO SCH (10:54)
[2021-03-05] MEDS: NAMENDA PO SCH (20:33)
[2021-03-06 04:57] LABS: BASOPHILS # (AUTO) 0.1 K/uL (0-0.2); BASOPHILS % (AUTO) 0.6 % (0.0-3.0); EOSINOPHILS # (AUTO) 0.1 K/ul (0.0-0.7); EOSINOPHILS % (AUTO) 1.1 % (0.0-7.0); HEMATOCRIT 33.4 % (37.0-47.0); HEMOGLOBIN 10.8 g/dl (12.0-16.0); IMMATURE GRANULOCYTE % (AUTO) 0.2 % (0.0-5.0); MEAN CORPUSCULAR HEMOGLOBIN 29.8 pg (27.0-31.0); MEAN CORPUSCULAR HGB CONC 32.3 (31.8-35.4); MEAN CORPUSCULAR VOLUME 92.3 fl (81.0-99.0); MONOCYTES # (AUTO) 0.9 K/uL (0.4-2.0); MONOCYTES % (AUTO) 10.8 (0-10); NEUTROPHILS # (AUTO) 5.2 K/ul (2.0-6.9); NEUTROPHILS % (AUTO) 63.3 % (42.2-75.2); PLATELET COUNT 186 10^3/uL (140-440); RDW COEFFICIENT OF VARIATION 12.7 % (11.6-14.8); RED BLOOD COUNT 3.62 10^6/ul (4.20-5.40); WHITE BLOOD COUNT 8.17 K/ul (4.6-10.2)
[2021-03-06 05:13] LABS: ALANINE AMINOTRANSFERASE 8.9 U/L (0-35); ALBUMIN 3.49 g/dL (3.5-5.0); ASPARTATE AMINO TRANSFERASE 19.6 U/L (14-36); BILIRUBIN,TOTAL 0.55 mg/dL (0.2-1.3); BLOOD UREA NITROGEN 40.7 mg/dL (7-17); CALCIUM 8.57 mg/dL (8.4-10.2); CHLORIDE 105.5 mmol/L (98-107); CREATININE 1.53 mg/dL (0.60-1.30); GLUCOSE 107.6 mg/dL (74-106); POTASSIUM 3.88 mmol/L (3.5-5.1); SODIUM 139.6 mmol/L (134.5-145); TOTAL PROTEIN 6.83 g/dL (6.3-8.2)
[2021-03-06] MEDS: LASIX TAB PO SCH (05:48)
[2021-03-06] MEDS: PROTONIX PO SCH ×2 (05:48→16:30)
[2021-03-06] MEDS: CALCIUM 500 + VIT D 5 MCG (200 IU) TABLET PO SCH (09:43)
[2021-03-06] MEDS: MULTIVITAMIN TABLET PO SCH (09:44)
[2021-03-06] MEDS: SINEQUAN PO SCH (09:44)
[2021-03-06] MEDS: BUSPAR PO SCH ×4 (09:44→21:17)
[2021-03-06] MEDS: MICRO-K CAP PO SCH (09:44)
[2021-03-06] MEDS: FAMVIR PO SCH (09:44)
[2021-03-06] MEDS: ARICEPT PO SCH (09:44)
[2021-03-06] MEDS: ZEBETA PO SCH (09:44)
[2021-03-06] MEDS: LIPITOR PO SCH (09:45)
[2021-03-06] MEDS: LOTENSIN PO SCH (09:45)
[2021-03-06] MEDS: NEURONTIN PO SCH ×3 (09:45→21:17)
[2021-03-06] MEDS: MAXIPIME 2 GM/50 ML D5W 2 GM/50 ML BAG IV SCH ×2 (09:45→21:18)
[2021-03-06] MEDS: ASPIRIN EC PO SCH (09:45)
[2021-03-06] MEDS: NON-FORMULARY MEDICATION (Lysine Hcl 500 MG tablet) PO SCH (09:46)
[2021-03-06] MEDS: VANCOMYCIN 1 GM in SODIUM CHLORIDE 250 ML IV SCH (11:13)
[2021-03-06] MEDS: NAMENDA PO SCH (21:18)
[2021-03-07] MEDS: LASIX TAB PO SCH (05:50)
[2021-03-07] MEDS: PROTONIX PO SCH ×2 (05:50→16:19)
[2021-03-07 05:59] LABS: BASOPHILS # (AUTO) 0.1 K/uL (0-0.2); BASOPHILS % (AUTO) 0.6 % (0.0-3.0); EOSINOPHILS # (AUTO) 0.1 K/ul (0.0-0.7); EOSINOPHILS % (AUTO) 0.8 % (0.0-7.0); HEMATOCRIT 32.1 % (37.0-47.0); HEMOGLOBIN 10.4 g/dl (12.0-16.0); IMMATURE GRANULOCYTE % (AUTO) 0.4 % (0.0-5.0); LYMPHOCYTES # (AUTO) 2.3 K/uL (0.60-3.4); LYMPHOCYTES % (AUTO) 27.4 (10.0-50.0); MEAN CORPUSCULAR HEMOGLOBIN 29.9 pg (27.0-31.0); MEAN CORPUSCULAR HGB CONC 32.4 (31.8-35.4); MEAN CORPUSCULAR VOLUME 92.2 fl (81.0-99.0); MONOCYTES # (AUTO) 0.9 K/uL (0.4-2.0); MONOCYTES % (AUTO) 10.2 (0-10); NEUTROPHILS # (AUTO) 5.1 K/ul (2.0-6.9); NEUTROPHILS % (AUTO) 60.6 % (42.2-75.2); PLATELET COUNT 204 10^3/uL (140-440); RDW COEFFICIENT OF VARIATION 12.7 % (11.6-14.8); RED BLOOD COUNT 3.48 10^6/ul (4.20-5.40)
[2021-03-07 06:11] LABS: ALANINE AMINOTRANSFERASE 9.5 U/L (0-35); ALBUMIN 3.34 g/dL (3.5-5.0); ALKALINE PHOSPHATASE 84.3 U/L (53-141); ASPARTATE AMINO TRANSFERASE 24.3 U/L (14-36); BILIRUBIN,TOTAL 0.67 mg/dL (0.2-1.3); BLOOD UREA NITROGEN 44.4 mg/dL (7-17); CALCIUM 8.84 mg/dL (8.4-10.2); CARBON DIOXIDE 26.8 mmol/L (22-30.0); CHLORIDE 104.6 mmol/L (98-107); CREATININE 1.71 mg/dL (0.60-1.30); GLUCOSE 95.6 mg/dL (74-106); POTASSIUM 3.71 mmol/L (3.5-5.1); SODIUM 137.5 mmol/L (134.5-145); TOTAL PROTEIN 6.45 g/dL (6.3-8.2)
[2021-03-07] MEDS: NON-FORMULARY MEDICATION (Lysine Hcl 500 MG tablet) PO SCH (09:16)
[2021-03-07] MEDS: ASPIRIN EC PO SCH (09:36)
[2021-03-07] MEDS: NEURONTIN PO SCH ×3 (09:36→21:26)
[2021-03-07] MEDS: LIPITOR PO SCH (09:36)
[2021-03-07] MEDS: MICRO-K CAP PO SCH (09:36)
[2021-03-07] MEDS: CALCIUM 500 + VIT D 5 MCG (200 IU) TABLET PO SCH (09:36)
[2021-03-07] MEDS: ARICEPT PO SCH (09:37)
[2021-03-07] MEDS: LOTENSIN PO SCH (09:37)
[2021-03-07] MEDS: SINEQUAN PO SCH (09:37)
[2021-03-07] MEDS: ZEBETA PO SCH (09:37)
[2021-03-07] MEDS: MAXIPIME 2 GM/50 ML D5W 2 GM/50 ML BAG IV SCH ×2 (09:37→21:26)
[2021-03-07] MEDS: BUSPAR PO SCH ×4 (09:37→21:26)
[2021-03-07] MEDS: MULTIVITAMIN TABLET PO SCH (09:37)
[2021-03-07] MEDS: FAMVIR PO SCH (10:10)
[2021-03-07] MEDS: VANCOMYCIN 1 GM in SODIUM CHLORIDE 250 ML IV SCH (10:40)
--- NOTE | 2021-03-07 11:09 | PN ---
DATE OF SERVICE: 03/04/2021 SUBJECTIVE: The patient was seen and examined with the Nurse Practitioner. The patient's left leg still has redness. Scabbed over the lower side, drying up. The patient right leg has lost practically all the fluids. Left has less fluid but cellulitis is taking somewhat longer. Cardiovascular status is stable. We will continue Vancomycin and Clindamycin. TIME SPENT: More than 30 minutes. Plan and coordination of the patient's care discussed in the presence of nurse. JORDAN
--- NOTE | 2021-03-07 11:54 | PN ---
DATE OF SERVICE: 03/05/2021 SUBJECTIVE: The patient was seen and examined with the Nurse Practitioner. The patient's left leg cellulitis seems to be a lot better today. Less redness. Formation seems to be going in health fashion. Shorting of the eschar. Condition improving. TIME SPENT: More than 30 minutes. Plan and coordination of the patient's care discussed in the presence of nurse. JORDAN
[2021-03-07] MEDS: NAMENDA PO SCH (21:26)
[2021-03-08 05:37] LABS: BASOPHILS # (AUTO) 0.1 K/uL (0-0.2); BASOPHILS % (AUTO) 0.6 % (0.0-3.0); EOSINOPHILS # (AUTO) 0.1 K/ul (0.0-0.7); EOSINOPHILS % (AUTO) 1.8 % (0.0-7.0); HEMOGLOBIN 10.6 g/dl (12.0-16.0); IMMATURE GRANULOCYTE % (AUTO) 0.3 % (0.0-5.0); LYMPHOCYTES # (AUTO) 2.2 K/uL (0.60-3.4); LYMPHOCYTES % (AUTO) 27.5 (10.0-50.0); MEAN CORPUSCULAR HEMOGLOBIN 30.3 pg (27.0-31.0); MEAN CORPUSCULAR HGB CONC 33.1 (31.8-35.4); MEAN CORPUSCULAR VOLUME 91.4 fl (81.0-99.0); MONOCYTES # (AUTO) 0.9 K/uL (0.4-2.0); MONOCYTES % (AUTO) 10.8 (0-10); NEUTROPHILS # (AUTO) 4.7 K/ul (2.0-6.9); PLATELET COUNT 208 10^3/uL (140-440); RDW COEFFICIENT OF VARIATION 12.6 % (11.6-14.8); WHITE BLOOD COUNT 7.89 K/ul (4.6-10.2)
[2021-03-08 05:47] VITALS: BP 138/62; TEMP 99
[2021-03-08] MEDS: LASIX TAB PO SCH (05:49)
[2021-03-08] MEDS: PROTONIX PO SCH (05:49)
[2021-03-08 05:59] LABS: ALANINE AMINOTRANSFERASE 11.3 U/L (0-35); ALBUMIN 3.2 g/dL (3.5-5.0); ALKALINE PHOSPHATASE 77.8 U/L (53-141); ASPARTATE AMINO TRANSFERASE 22.8 U/L (14-36); BILIRUBIN,TOTAL 0.43 mg/dL (0.2-1.3); BLOOD UREA NITROGEN 51.9 mg/dL (7-17); CALCIUM 8.69 mg/dL (8.4-10.2); CARBON DIOXIDE 26.1 mmol/L (22-30.0); CHLORIDE 106.4 mmol/L (98-107); CREATININE 1.86 mg/dL (0.60-1.30); GLUCOSE 98.9 mg/dL (74-106); POTASSIUM 3.68 mmol/L (3.5-5.1); SODIUM 139.3 mmol/L (134.5-145); TOTAL PROTEIN 6.3 g/dL (6.3-8.2)
[2021-03-08] MEDS ORDERED: SODIUM CHLORIDE 1,000 ML IV SCH (09:00)
[2021-03-08] MEDS: LOTENSIN PO SCH (09:28)
[2021-03-08] MEDS: LIPITOR PO SCH (09:29)
[2021-03-08] MEDS: BUSPAR PO SCH (09:29)
[2021-03-08] MEDS: MICRO-K CAP PO SCH (09:29)
[2021-03-08] MEDS: ARICEPT PO SCH (09:29)
[2021-03-08] MEDS: NEURONTIN PO SCH (09:29)
[2021-03-08] MEDS: CALCIUM 500 + VIT D 5 MCG (200 IU) TABLET PO SCH (09:29)
[2021-03-08] MEDS: MULTIVITAMIN TABLET PO SCH (09:30)
[2021-03-08] MEDS: ASPIRIN EC PO SCH (09:30)
[2021-03-08] MEDS: SINEQUAN PO SCH (09:30)
[2021-03-08] MEDS: NON-FORMULARY MEDICATION (Lysine Hcl 500 MG tablet) PO SCH (09:30)
[2021-03-08] MEDS: ZEBETA PO SCH (09:31)
[2021-03-08] MEDS: MAXIPIME 2 GM/50 ML D5W 2 GM/50 ML BAG IV SCH (10:27)
--- NOTE | 2021-03-08 11:15 | CM.DICTOOL ---
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 CERVICAL RADICULOPATHY A1C 5.4 ON 01/19/21 PAST SURGICAL HISTORY: STATUS POST HYSTERECTOMY LAST VITALS Temp Pulse Resp BP Pulse Ox 99.0 F 60 16 138/62 94 L 03/08/21 05:46 03/08/21 05:46 03/08/21 05:46 03/08/21 05:46 03/08/21 10:00 TAKE THESE MEDICATIONS AT HOME Acetaminophen (Acetaminophen 500 Mg Tablet) 500 MG EVERY4-6 HOURS PRN PRN Reason: Headache Hydrocodone Bitart/Acetaminophen (Hydrocodone Bit/Acetaminophen 5/325 Mg Tablet) 0.5 tab PO BID PRN PRN Reason: Pain Last Admin: 03/02/21 16:19 Dose: 0.5 tab Documented by: Aspirin (Aspirin 81 Mg Tablet.) 81 mg PO DAILYWM [facility] Last Admin: 03/08/21 09:30 Dose: 81 mg Documented by: Atorvastatin Calcium (Atorvastatin Calcium 20 Mg Tablet) 40 mg PO DAILY [facility] Last Admin: 03/08/21 09:29 Dose: 40 mg Documented by: Benazepril HCl (Benazepril Hcl 10 Mg Tablet) 40 mg PO DAILY [facility] Last Admin: 03/08/21 09:28 Dose: 40 mg Documented by: Bisoprolol Fumarate (Bisoprolol Fumarate 5 Mg Tablet) 5 mg PO DAILY [facility] Last Admin: 03/08/21 09:31 Dose: 5 mg Documented by: Buspirone HCl (Buspirone Hcl 10 Mg Tablet) 5 mg PO QID [facility] Last Admin: 03/08/21 09:29 Dose: 5 mg Documented by: Calcium/Vitamin D (Calcium Carbonate/Vitamin D3 500 Mg/5 Mcg(200iu) 1 Each Tablet) 1 each PO DAILY [facility] Last Admin: 03/08/21 09:29 Dose: 1 each Documented by: Cefdinir (Cefdinir 300 Mg Capsule) 300 mg PO Q12HR [facility] X 10 DAYS -- (NEW) Donepezil HCl (Donepezil Hcl 10 Mg Tablet) 10 mg PO DAILY [facility] Last Admin: 03/08/21 09:29 Dose: 10 mg Documented by: Doxepin HCl (Doxepin Hcl 25 Mg Capsule) 25 mg PO DAILY [facility] Last Admin: 03/08/21 09:30 Dose: 25 mg Documented by: Furosemide (Furosemide 40 Mg Tablet) 40 mg PO QDAC [facility] Last Admin: 03/08/21 05:49 Dose: 40 mg Documented by: Gabapentin (Gabapentin 300 Mg Capsule) 300 mg PO TID [facility] Last Admin: 03/08/21 09:29 Dose: 300 mg Documented by: Memantine (Memantine Hcl 10 Mg Tablet) 10 mg PO BEDTIME [facility] Last Admin: 03/07/21 21:26 Dose: 10 mg Documented by: Multivitamins (Multivitamin 1 Tab) 1 tab PO DAILY [facility] Last Admin: 03/08/21 09:30 Dose: 1 tab Documented by: Non-Formulary Medication (Lysine Hcl) 500 mg PO DAILY [facility] Last Admin: 03/08/21 09:30 Dose: Not Given Documented by: Potassium Chloride (Potassium Chloride 10 Meq Capsule.Er) 10 meq PO DAILYWM [facility] Last Admin: 03/08/21 09:29 Dose: 10 meq Documented by: Tramadol HCl (Tramadol Hcl 50 Mg Tablet) 50 mg PO BID PRN PRN Reason: Pain Last Admin: 03/03/21 20:41 Dose: 50 mg Documented by: PROLIA 60 MG SQ DIRECTED NEXIUM 40 MG PO BID ALLERGIES iron Adverse Reaction (Verified 03/07/19 09:44) Diarrhea DISCONTINUED MEDICATIONS 1). FERROUS SULFATE 2). LOTREL NEW PRESCRIPTIONS: 1).OMNICEF 300 MG PO BID X 10 DAYS 2).LOTENSIN 40 MG PO DAILY SMOKING: N/A DISEASE SPECIFIC EDUCATION: EDEMA HEART HEALTHY DIET FALL PRECAUTIONS CELLULITIS COVID LAB REVIEW: 03/08/21 05:10 03/08/21 05:10 03/08/21 05:10: Sodium 139.3, Potassium 3.68, Chloride 106.4, Carbon Dioxide 26.1, Anion Gap 10.48, BUN 51.9 H, Creatinine 1.86 H, Estimated GFR (MDRD) 26.00, BUN/Creatinine Ratio 27.90, Glucose 98.9, Calcium 8.69, Total Bilirubin 0.43, AST 22.8, ALT 11.3, Alkaline Phosphatase 77.8, Total Protein 6.30, Albumin 3.20 L, Globulin 3.10, Albumin/Globulin Ratio 1.03 03/08/21 05:10: WBC 7.89, RBC 3.50 L, Hgb 10.6 L, Hct 32.0 L, MCV 91.4, MCH 30.3, MCHC 33.1, RDW Coeff of Gabriella 12.6, Plt Count 208, Immature Gran % (Auto) 0.3, Neut % (Auto) 59.0, Lymph % (Auto) 27.5, [place] % (Auto) 10.8 H, Eos % (Auto) 1.8, Baso % (Auto) 0.6, Neut # (Auto) 4.7, Lymph # (Auto) 2.2, [place] # (Auto) 0.9, Eos # (Auto) 0.1, Baso # (Auto) 0.1, Immature Gran # (Auto) 0.0 PLAN: DISCHARGE HOME TODAY : RETURN HOME WITH SPOUSE. FAMILY INFORMED DOES NOT NEED TO STAY ALONE. ACTIVITY: UP WITH WALKER WITH SUPERVISION FOLLOW [facility] [employer] KEEP LOWER EXTREMETIES ELEVATED AT ALL TIMES EXCEPT WHEN WALKING DIET: HEART HEALTHY MD FOLLOW UP: SEE DR. SAENZ/ BETO MCINTOSH APRN/ LILI RILEY APRN IN THE OFFICE ON SUNDAY, MARCH 14, 2021 @ 1145 AM CODE STATUS: DO NOT INTUBATE/ CPR ONLY FOLLOW UP WOUNDS: [facility] APPOINTMENT Thursday03/11/2021 @ [address] [facility] [address], [address] HOME HEALTH: REFERRAL SENT TO [facility] FOR SN, PT AND OT, MRS RUIZ REMAINS ALERT AND ORIENTED X 4 WITH SOME FORGETFULNESS. SHE HAS NO COMPLAINTS WITH BREATHING. NO ACUTE PAIN . STILL HAS CRUSTED AREAS TO HER LEGS, NO DRAINAGE. RT LEG WITH MINIMAL NON-PITTING AND LT LEG WITH 1+ PITTING EDEMA. SHE GETS UP WITH WALKER AND CGA. FEEDS SELF WITH NUTRITIONAL AT 75-100% AND FLUID INTAKE SUBSTANTIAL. SHE IS PLEASANT AND TALKS ABOUT BEING WITH HER . SON STATED THAT AND MR RUIZ HAVE BEEN ADAMENT ABOUT STAYING JUST THE TWO OF THEM. THERE ARE SITTERS INVOLVED AT THIS TIME. SHE DOES HAVE A WOUND CARE APPOINTMENT WITH [facility] AND REFERRAL SENT TO [facility] FOR SN, PT AND OT. MD BETO BRAY, ISIAH RILEY APRN
--- NOTE | 2021-03-08 11:35 | PCM.PROG ---
Attending Provider: ATTENDING PROVIDER: Dr. HUMZA SAENZ This patient is seen with Terri Otto, Nurse Practitioner. DATE OF SERVICE: 03/08/21 SUBJECTIVE: This 85 year old /WHITE F was hospitalized 02/28/21. The patient is resting comfortably. Leg edema and redness has improved. Area on left lower extremity is dry with thick scabbing. The patient has been eating well. REVIEW OF SYSTEMS: CONSTITUTIONAL: No night sweats. No fatigue, malaise, lethargy. No fever or chi lls. Weakness. HEENT: Eyes: No visual changes. No eye pain. No eye discharge. ENT: No runny nose. No epistaxis. No sinus pain. No odynophagia. No congestion. RESPIRATORY: No cough, no congestion. No hemoptysis. No shortness of breath. CARDIOVASCULAR: No angina symptoms. No CHF symptoms. No atypical chest pain for CAD. No palpitations. No orthopnea.. GASTROINTESTINAL: No abdominal pain. No nausea or vomiting. No diarrhea or constipation. No hematemesis. No hematochezia. GENITOURINARY: No urgency. No frequency. No dysuria. No hematuria. No obstructive symptoms. No discharge. No pain. No significant abnormal bleeding. MUSCULOSKELETAL: No musculoskeletal pain; no joint swelling. Leg redness. NEUROLOGICAL: Awake, alert, oriented to time, place and person. No headache. No neck pain. No syncope. No seizures. No dizziness. PSYCHIATRIC: Not anxious. No depression. No suicidal thoughts. No homicidal thoughts. SKIN: No rash. No lesions. No wounds. ENDOCRINE: No unexplained weight loss. No weight gain. HEMATOLOGIC/LYMPHATIC: No anemia. No purpura. No petechiae. No prolonged or excessive bleeding. No palpable lymph nodes. PHYSICAL EXAMINATION: GENERAL: The patient is awake, alert and oriented, lying in bed in no distress. VITAL SIGNS: Temperature 99.0 F, Pulse 60, Respiratory Rate 16, BP 138/62, Pulse Ox 95% HEENT: Head normocephalic, atraumatic. Eyes: Extraocular muscles are intact. Pupils are equal, round and reactive to light and accommodation. Ears: No lesions. Nose appeared normal. Throat: No exudate or erythema. NECK: Supple. No JVD, no carotid bruit. No lymphadenopathy or thyromegaly. LUNGS: Diminished breath sounds. Clear to auscultation. Percussion note normal. Chest symmetrical. HEART: S1, S2, no S3. No murmurs. No cyanosis or clubbing. No ascites. Pulses: Dorsalis pedis and posterior tibial pulses +1 to +2 both sides. ABDOMEN: Soft. Non-tender. Bowel sounds active. No CVA tenderness. No mass felt. EXTREMITIES: Minimal redness anterior left lower extremity. no redness right lower extremity. No edema. Full range of motion of all extremities, equal. NEUROLOGIC: No focal deficit. Cranial nerves II through XII are grossly intact. No headache. No double vision. SKIN: Not dry. Intact. Turgor-normal. LYMPHATIC: No palpable lymph nodes/no lymphedema. MUSCULOSKELETAL: Normal joints with no swelling. Muscle tone is normal. LAB REVIEW: 03/08/21 05:10 03/08/21 05:10 03/08/21 05:10: Sodium 139.3, Potassium 3.68, Chloride 106.4, Carbon Dioxide 26.1, Anion Gap 10.48, BUN 51.9 H, Creatinine 1.86 H, Estimated GFR (MDRD) 26.00, BUN/Creatinine Ratio 27.90, Glucose 98.9, Calcium 8.69, Total Bilirubin 0.43, AST 22.8, ALT 11.3, Alkaline Phosphatase 77.8, Total Protein 6.30, Albumin 3.20 L, Globulin 3.10, Albumin/Globulin Ratio 1.03 03/08/21 05:10: WBC 7.89, RBC 3.50 L, Hgb 10.6 L, Hct 32.0 L, MCV 91.4, MCH 30.3, MCHC 33.1, RDW Coeff of Gabriella 12.6, Plt Count 208, Immature Gran % (Auto) 0.3, Neut % (Auto) 59.0, Lymph % (Auto) 27.5, [place] % (Auto) 10.8 H, Eos % (Auto) 1.8, Baso % (Auto) 0.6, Neut # (Auto) 4.7, Lymph # (Auto) 2.2, [place] # (Auto) 0.9, Eos # (Auto) 0.1, Baso # (Auto) 0.1, Immature Gran # (Auto) 0.0 ASSESSMENT: Please see below. 1. Bilateral lower extremity cellulitis, improved 2. Chronic leg edema 3. CKD PLAN: 1. Normal saline at 75cc until discharge 2. Discharge home 3. Appointment with [facility] 4. Followup in office next week. 5. Consult with pharmacy for PO antibiotics for discharge 6. The patient would benefit from home health for wound care, nursing and PT/OT. t Plan and coordination of the patient's care discussed in the presence of Medical Receptionist Assistant and nurse. SCRIBED BY: MICHAEL PETERSEN [employer] Superintendent scribed while in presence of service performed by Dr. Saenz/Terri Otto APRN on 03/08/21 ([id number])
--- NOTE | 2021-03-08 14:10 | PN ---
DATE OF SERVICE: 03/06/2021 SUBJECTIVE: 85 year old white female hospitalized with bilateral lower extremity cellulitis and leg edema. The patient's cellulitis seems to be resolving on the left leg. Right leg looks a lot better. Edema practically has subsided on right leg. Left leg still is hold some fluid. He is up about going through physical therapy. She is feeling better. REVIEW OF SYSTEMS: CONSTITUTIONAL: No night sweats. No fatigue, malaise, lethargy. No fever or chills. HEENT: Eyes: No visual changes. No eye pain. No eye discharge. ENT: No runny nose. No epistaxis. No sinus pain. No sore throat. No odynophagia. No congestion. RESPIRATORY: No cough, no congestion. No hemoptysis. No shortness of breath. CARDIOVASCULAR: No angina symptoms. No CHF symptoms. No atypical chest pain for CAD. No palpitations. No PND. No orthopnea. GASTROINTESTINAL: No abdominal pain. No nausea or vomiting. No diarrhea or constipation. No hematemesis. No hematochezia. GENITOURINARY: No urgency. No frequency. No dysuria. No hematuria. No obstructive symptoms. No discharge. No pain. No significant abnormal bleeding. MUSCULOSKELETAL: No musculoskeletal pain; no joint swelling. Mild pains in the legs more left than the right. NEUROLOGICAL: No headache. No neck pain. No syncope. No seizures. No dizziness. PSYCHIATRIC: Not anxious. No depression. No suicidal thoughts. No homicidal thoughts. SKIN: No rash. No lesions. No wounds. ENDOCRINE: No unexplained weight loss. No weight gain. HEMATOLOGIC/LYMPHATIC: No anemia. No purpura. No petechiae. No prolonged or excessive bleeding. No palpable lymph nodes. PHYSICAL EXAMINATION: VITAL SIGNS: Temperature 97.3, pulse 64, respiratory rate 20, blood pressure 140/67 and pulse 99% on room air. HEENT: Head normocephalic, atraumatic. Eyes: Extraocular muscles are intact. Pupils are equal, round and reactive to light and accommodation. Ears: No lesions. Nose appeared normal. Throat: No exudate or erythema. NECK: Supple. No JVD, no carotid bruit. No lymphadenopathy or thyromegaly. LUNGS: Clear to auscultation. Percussion note normal. Chest symmetrical. HEART: S1, S2, no S3. No murmurs. No cyanosis or clubbing. No ascites. Pulses: Dorsalis pedis and posterior tibial pulses +1 to +2 bilaterally. ABDOMEN: Soft. Nontender. Bowel sounds active. No CVA tenderness. No mass felt. EXTREMITIES: Full range of motion of all extremities, equal. Left leg lower half seems to be less red. Pucker of the skin. Eschar seems to be healthy forming and getting hardened. No discharge noted. Right lower extremity practically normal with trace edema. NEUROLOGIC: No focal deficit. Cranial nerves II through XII are grossly intact. No headache. No double vision. SKIN: Not dry. Intact. Turgor - normal. LYMPHATIC: No palpable lymph nodes/no lymphedema. MUSCULOSKELETAL: Normal joints with no swelling. Muscle tone is normal. LABS: hgb 10.8, hct 33, WBC 8,000 normal differential, creatinine 1.5, BUN 40, potassium 3.8. ASSESSMENT: 1. Bilateral leg edema with cellulitis of the left lower extremity with some ulcers covered with eschar seems to be improving slowly. 2. Chronic anemia 3. Hypertension 4. Chronic kidney disease PLAN: 1. Elevate the legs 2. Continue diuretic 3. Continue antibiotics CONDITION: Stable TIME SPENT: More than 30 minutes. Plan and coordination of the patient's care discussed in the presence of nurse. JORDAN
[2021-03-08] MEDS ORDERED: OMNICEF PO SCH (21:00)
--- NOTE | 2021-03-11 11:14 | PN ---
DATE OF SERVICE: 03/07/2021 SUBJECTIVE: 85 year old white female hospitalized with bilateral lower extremity edema, +3 pitting with cellulitis. The patient's left leg cellulitis was worse than the right. Right practically has resolved with the treatment, left one doing a lot better the eschar formation seems to be healthy scab. The patient is on cefepime and Vancomycin. REVIEW OF SYSTEMS: CONSTITUTIONAL: No night sweats. No fatigue, malaise, lethargy. No fever or chills. HEENT: Eyes: No visual changes. No eye pain. No eye discharge. ENT: No runny nose. No epistaxis. No sinus pain. No sore throat. No odynophagia. No congestion. RESPIRATORY: No cough, no congestion. No hemoptysis. No shortness of breath. CARDIOVASCULAR: No angina symptoms. No CHF symptoms. No atypical chest pain for CAD. No palpitations. No PND. No orthopnea. GASTROINTESTINAL: No abdominal pain. No nausea or vomiting. No diarrhea or constipation. No hematemesis. No hematochezia. GENITOURINARY: No urgency. No frequency. No dysuria. No hematuria. No obstructive symptoms. No discharge. No pain. No significant abnormal bleeding. MUSCULOSKELETAL: No musculoskeletal pain; no joint swelling. NEUROLOGICAL: No headache. No neck pain. No syncope. No seizures. No dizziness. PSYCHIATRIC: Not anxious. No depression. No suicidal thoughts. No homicidal thoughts. SKIN: No rash. No lesions. No wounds. ENDOCRINE: No unexplained weight loss. No weight gain. HEMATOLOGIC/LYMPHATIC: No anemia. No purpura. No petechiae. No prolonged or excessive bleeding. No palpable lymph nodes. PHYSICAL EXAMINATION: VITAL SIGNS: Temperature 98.7, pulse 62, respiratory rate 18, blood pressure 130/60 and pulse ox 94%. HEENT: Head normocephalic, atraumatic. Eyes: Extraocular muscles are intact. Pupils are equal, round and reactive to light and accommodation. Ears: No lesions. Nose appeared normal. Throat: No exudate or erythema. NECK: Supple. No JVD, no carotid bruit. No lymphadenopathy or thyromegaly. LUNGS: Decreased breath sounds but clear to auscultation. Percussion note normal. Chest symmetrical. HEART: S1, S2, no S3. No murmurs. No cyanosis or clubbing. No ascites. Pulses: Dorsalis pedis and posterior tibial pulses +1 to +2 bilaterally. ABDOMEN: Soft. Nontender. Bowel sounds active. No CVA tenderness. No mass felt. EXTREMITIES: Left leg cellulitis seems to be resolving. No discharge noted. Full range of motion of all extremities, equal. NEUROLOGIC: No focal deficit. Cranial nerves II through XII are grossly intact. No headache. No double vision. SKIN: Not dry. Intact. Turgor - normal. LYMPHATIC: No palpable lymph nodes/no lymphedema. MUSCULOSKELETAL: Normal joints with no swelling. Muscle tone is normal. LABS: hgb 10.4, hct 32, WBC 8,400 normal differential, creatinine 1.7, BUN 44, potassium 3.7 ASSESSMENT: 1. Cellulitis of left lower leg seems to be resolving 2. Chronic kidney disease 3. Hypertension 4. Chronic anemia PLAN: 1. Discharge the patient home. 2. Set her up for Wound Care at [facility] 3. Home Health Care to take care of her wound at home, likely date of discharge tomorrow. CONDITION: Stable otherwise. TIME SPENT: More than 30 minutes. Plan and coordination of the patient's care discussed in the presence of nurse. JORDAN
--- NOTE | 2021-03-12 11:43 | ECHO2D ---
Date of Exam: 03/08/2021 Ordering Physician: DR. HUMZA SAENZ Room #: 110 Reason for Echo: INCREASED EDEMA, HTN, HYPERLIPIDEMIA M-Mode Normal Adult Results LV Dimensions Normal Adult Results AoV Opening excursions >1.6 >1.6 LVEDD-base- 3.5-5.8 4.9 Ao root dimensions 2.0-3.7 3.1 LVESD-base- 3.1-4.6 L. Atrium dimensions 1.9-3.8 4.4 Post. Wall thickness 0.8-1.1 1.2 IV septum (thickness) 0.7-1.2 1.2 Post. Wall excursion 0.72-1.3 NORMAL Septal motion NORMAL Systolic motion R. Ventricular cavity 1.5-2.0 NORMAL LVEF 60% 76% Paradoxical septal wall motion NORMAL 2-D : 2-D M Mode Echocardiogram was performed using apical four chamber and left parasternal long and short axis views. Tricuspid and aortic valves appear to be normal. CALCIFIC MITRAL VALVE ANNULUS-- Contractility of the left ventricle seems to be normal, so is the cavity size. ENLARGED LEFT ATRIAL CAVITY SIZE. Aortic root appears to be normal. There is no pericardial effusion. There is no thrombus noted in the left ventricle or left atrial cavity. M-MODE: MV: CALCIFIC MITRAL VALVE ANNULUS AV: NORMAL TV: NORMAL PV: CHAMBER SIZE: ENLARGED LEFT ATRIAL CAVITY WALL MOTION: NORMAL PERICARDIUM: NORMAL INTERPRETATION: 1. BORDERLINE LEFT VENTRICULAR HYPERTROPHY WITH ENLARGED LEFT ATRIAL CAVITY 2. CALCIFIC MITRAL VALVE ANNULUS 3. NORMAL LEFT VENTRICLE CONTRACTILITY 4. NORMAL VALVES MTDD
--- NOTE | 2021-03-25 13:18 | PN ---
DATE OF SERVICE: 03/08/2021 SUBJECTIVE: 85 year old white female was seen and examined with the Nurse Practitioner. The patient's condition has improved remarkably. Echocardiogram showed borderline LV cavity 5.5cm with normal LV contractility and enlarged left atrial cavity. The has borderline LVH. Valvular structures are normal. The patient is going to be discharged on Home Health Care and Wound Care. The patient's lower extremities looks a lot better. Left lower extremity with cellulitis has very faint redness surrounding two ulcers were are covered with healthy eschar. TIME SPENT: More than 30 minutes. Plan and coordination of the patient's care discussed in the presence of nurse. JORDAN
--- NOTE | 2021-03-25 13:47 | DS ---
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 FAMILY INFORMED DOES NOT NEED TO STAY ALONE.MD FOLLOW UP: SEE DR. SAENZ/ BETO MCINTOSH APRN/ LILI RILEY APRN IN THE OFFICE ON SUNDAY, MARCH 14, 2021 @ 1145 AM. CODE STATUS: DO NOT INTUBATE/ CPR ONLY FOLLOW UP WOUNDS: [facility] APPOINTMENT Thursday03/11/2021 @ [address]. HOME HEALTH: REFERRAL SENT TO [facility] FOR SN, PT AND OT, . TAKE THESE MEDICATIONS AT HOME: Acetaminophen (Acetaminophen 500 Mg Tablet) 500 MG EVERY4-6 HOURS PRN PRN Reason: Headache Hydrocodone Bitart/Acetaminophen (Hydrocodone Bit/Acetaminophen 5/325 Mg Tablet) 0.5 tab PO BID PRN PRN Reason: Pain Last Admin: 03/02/21 16:19 Dose: 0.5 tab Documented by: Aspirin (Aspirin 81 Mg Tablet.) 81 mg PO DAILYWM [facility] Last Admin: 03/08/21 09:30 Dose: 81 mg Documented by: Atorvastatin Calcium (Atorvastatin Calcium 20 Mg Tablet) 40 mg PO DAILY [facility] Last Admin: 03/08/21 09:29 Dose: 40 mg Documented by: Benazepril HCl (Benazepril Hcl 10 Mg Tablet) 40 mg PO DAILY [facility] Last Admin: 03/08/21 09:28 Dose: 40 mg Documented by: Bisoprolol Fumarate (Bisoprolol Fumarate 5 Mg Tablet) 5 mg PO DAILY [facility] Last Admin: 03/08/21 09:31 Dose: 5 mg Documented by: Buspirone HCl (Buspirone Hcl 10 Mg Tablet) 5 mg PO QID [facility] Last Admin: 03/08/21 09:29 Dose: 5 mg Documented by: Calcium/Vitamin D (Calcium Carbonate/Vitamin D3 500 Mg/5 Mcg(200iu) 1 Each Tablet) 1 each PO DAILY [facility] Last Admin: 03/08/21 09:29 Dose: 1 each Documented by: Cefdinir (Cefdinir 300 Mg Capsule) 300 mg PO Q12HR [facility] X 10 DAYS -- (NEW) Donepezil HCl (Donepezil Hcl 10 Mg Tablet) 10 mg PO DAILY [facility] Last Admin: 03/08/21 09:29 Dose: 10 mg Documented by: Doxepin HCl (Doxepin Hcl 25 Mg Capsule) 25 mg PO DAILY [facility] Last Admin: 03/08/21 09:30 Dose: 25 mg Documented by: Furosemide (Furosemide 40 Mg Tablet) 40 mg PO QDAC [facility] Last Admin: 03/08/21 05:49 Dose: 40 mg Documented by: Gabapentin (Gabapentin 300 Mg Capsule) 300 mg PO TID [facility] Last Admin: 03/08/21 09:29 Dose: 300 mg Documented by: Memantine (Memantine Hcl 10 Mg Tablet) 10 mg PO BEDTIME [facility] Last Admin: 03/07/21 21:26 Dose: 10 mg Documented by: Multivitamins (Multivitamin 1 Tab) 1 tab PO DAILY [facility] Last Admin: 03/08/21 09:30 Dose: 1 tab Documented by: Non-Formulary Medication (Lysine Hcl) 500 mg PO DAILY [facility] Last Admin: 03/08/21 09:30 Dose: Not Given Documented by: Potassium Chloride (Potassium Chloride 10 Meq Capsule.Er) 10 meq PO DAILYWM [facility] Last Admin: 03/08/21 09:29 Dose: 10 meq Documented by: Tramadol HCl (Tramadol Hcl 50 Mg Tablet) 50 mg PO BID PRN PRN Reason: Pain Last Admin: 03/03/21 20:41 Dose: 50 mg Documented by: PROLIA 60 MG SQ DIRECTED NEXIUM 40 MG PO BID ALLERGIES: iron Adverse Reaction (Verified 03/07/19 09:44) Diarrhea DISCONTINUED MEDICATIONS: 1). FERROUS SULFATE 2). LOTREL NEW PRESCRIPTIONS: 1).OMNICEF 300 MG PO BID X 10 DAYS 2).LOTENSIN 40 MG PO DAILY SMOKING: N/A DISEASE SPECIFIC EDUCATION: EDEMA HEART HEALTHY DIET FALL PRECAUTIONS CELLULITIS COVID LAB REVIEW: 03/08/21 05:10 03/08/21 05:10 03/08/21 05:10: Sodium 139.3, Potassium 3.68, Chloride 106.4, Carbon Dioxide 26.1, Anion Gap 10.48, BUN 51.9 H, Creatinine 1.86 H, Estimated GFR (MDRD) 26.00, BUN/Creatinine Ratio 27.90, Glucose 98.9, Calcium 8.69, Total Bilirubin 0.43, AST 22.8, ALT 11.3, Alkaline Phosphatase 77.8, Total Protein 6.30, Albumin 3.20 L, Globulin 3.10, Albumin/Globulin Ratio 1.03 03/08/21 05:10: WBC 7.89, RBC 3.50 L, Hgb 10.6 L, Hct 32.0 L, MCV 91.4, MCH 30.3, MCHC 33.1, RDW Coeff of Gabriella 12.6, Plt Count 208, Immature Gran % (Auto) 0.3, Neut % (Auto) 59.0, Lymph % (Auto) 27.5, [place] % (Auto) 10.8 H, Eos % (Auto) 1.8, Baso % (Auto) 0.6, Neut # (Auto) 4.7, Lymph # (Auto) 2.2, [place] # (Auto) 0.9, Eos # (Auto) 0.1, Baso # (Auto) 0.1, Immature Gran # (Auto) 0.0 ACTIVITY: UP WITH WALKER WITH SUPERVISION FOLLOW HOME HEALTH GUIDELINES KEEP LOWER EXTREMITIES ELEVATED AT ALL TIMES EXCEPT WHEN WALKING DIET: [facility]: 85 year old white female was seen in the office with bilateral leg swelling and weeping lower extremity +3-+4 pitting and on-pitting edema. The patient had cellulitis both lower extremity left worse than the right with superficial ulcers. 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 They have been for more than 65 years. The patient during the stay in the hospital with treated with IV Lasix, leg elevation higher than the hip, IV antibiotics initially Clindamycin later on switched to Vancomycin and Cefepime was added. The patient's condition improved slowly but remarkably. At the time of discharge the patient had faint redness couple of inches surrounding two ulcers that were covered with health eschar. She is going to be discharged on Omnicef 300mg twice a day for 10 days. Lotensin has been increased to 40mg. Lotrel has been discontinued. 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 Strongly advised to elevate the legs over her hips, cut down on salt. She was continued on Lasix and Potassium supplements. Rest of the medications were continued. The patient is going to have appointment with Wound Care in [place]. Also going to have Home Health Care to take care of her lower extremity. The patient has normal LV contractility, mild LV cavity enlargement, LA cavity enlargement. She has severe hypertension and chronic kidney disease. She has declined any further workup in a way of Dobutamine Stress Echo for possibility of coronary artery disease that could exist with her multiple risk factors. At the time of discharge condition is stable. TIME SPENT: More than 60 minutes. JORDAN
--- NOTE | 2021-03-25 13:48 | PN ---
02/28/2021: Level 5 03/01/2021: Intermediate 03/02/2021: Intermediate 03/03/2021: Intermediate 03/04/2021: Intermediate 03/05/2021: Intermediate 03/06/2021: Intermediate 03/07/2021: Intermediate 03/08/2021: D as in discharge MTDD
== END 2021-03-08 13:30 | disposition home or self-care (01) | DRG 593 ==
LOC: MEDSURG A 16:08
PROVIDERS: ADMIT Internal Medicine; ATTEND Internal Medicine

== ENCOUNTER 2021-07-05 09:59 | Inpatient (IN) ==
--- NOTE | 2021-07-05 10:52 | CT ---
EXAM: CT chest with and without contrast HISTORY: Atelectasis seen on CT abdomen pelvis 06/28/2021 COMPARISON: CT chest 09/29/2017 TECHNIQUE: Serial axial images of the chest were obtained after 75 ml of Visipaque IV contrast was a dministered. These were obtained from the lung apices to the upper abdomen. FINDINGS: The thyroid is unchanged with scattered low attenuation lesions and heterogeneity. Visual ized vessels demonstrate mild calcific atherosclerotic disease. There are filling defects in the sub segmental pulmonary arteries to the left lower lobe. No additional filling defect/thrombus is identi fied. Heart is normal in size. There are no pathologically enlarged lymph nodes. There is no pneumothorax. There is a small to moderate left effusion with adjacent left lower lobe a telectasis versus consolidation. The right lung is clear. Limited views of the soft tissues in the upper abdomen are unremarkable. There is degenerative dise ase of the spine. IMPRESSION: 1. Subsegmental pulmonary embolism in the left lower lobe with associated consolidation and effusion . A component of this consolidation may represent infarct. 2. Mild scattered atherosclerotic disease. 3. Stable heterogeneous and nodular thyroid gland. Created critical results were called to nurse carito Murray at 10:47 a.m. same day as exam. All CT scans are performed using dose optimization techniques as appropriate to the performed exam an d include at least one of the following: Automated exposure control, adjustment of the mA and/or kV according t o size, and the use of iterative reconstruction technique.
[2021-07-05 14:19] LABS: BORDETELLA PARAPERTUSSIS (PCR) NOT DETECTED (NOT DETECT); BORDETELLA PERTUSSIS (PCR) NOT DETECTED (NOT DETECT); CHLAMYDIA PNEUMONIAE (PCR) NOT DETECTED (NOT DETECT); CORONAVIRUS 229E (PCR) NOT DETECTED (NOT DETECT); CORONAVIRUS HKU1 (PCR) NOT DETECTED (NOT DETECT); CORONAVIRUS NL63 (PCR) NOT DETECTED (NOT DETECT); CORONAVIRUS OC43 (PCR) NOT DETECTED (NOT DETECT); HUMAN METAPNEUMOVIRUS (PCR) NOT DETECTED (NOT DETECT); HUMAN RHINOVIRUS/ENTEROV (PCR) NOT DETECTED (NOT DETECT); INFLUENZA B (PCR) NOT DETECTED (NOT DETECT); MYCOPLASMA PNEUMONIAE (PCR) NOT DETECTED (NOT DETECT); PARAINFLUENZA VIRUS 1 (PCR) NOT DETECTED (NOT DETECT); PARAINFLUENZA VIRUS 2 (PCR) NOT DETECTED (NOT DETECT); PARAINFLUENZA VIRUS 3 (PCR) NOT DETECTED (NOT DETECT); PARAINFLUENZA VIRUS 4 (PCR) NOT DETECTED (NOT DETECT); RESPIRATORY SYNCYTIAL V (PCR) NOT DETECTED (NOT DETECT); SARS_COV_2 (PCR) NOT DETECTED (NOT DETECT)
[2021-07-05 15:16] LABS: ADENOVIRUS (PCR) NOT DETECTED (NOT DETECT)
[2021-07-05] MEDS ORDERED: ATROPINE SULFATE PFS IVP PRN (17:43)
[2021-07-05] MEDS ORDERED: NITROSTAT SL PRN (17:43)
[2021-07-05 17:45] VITALS: BMI 28.9
[2021-07-05 18:10] LABS: BASOPHILS # (AUTO) 0.1 K/uL (0-0.2); BASOPHILS % (AUTO) 0.9 % (0.0-3.0); EOSINOPHILS # (AUTO) 0.1 K/ul (0.0-0.7); EOSINOPHILS % (AUTO) 0.9 % (0.0-7.0); HEMOGLOBIN 12.1 g/dl (12.0-16.0); IMMATURE GRANULOCYTE % (AUTO) 0.2 % (0.0-5.0); LYMPHOCYTES # (AUTO) 2.4 K/uL (0.60-3.4); LYMPHOCYTES % (AUTO) 36.6 (10.0-50.0); MEAN CORPUSCULAR HEMOGLOBIN 29.1 pg (27.0-31.0); MEAN CORPUSCULAR HGB CONC 31.8 (31.8-35.4); MEAN CORPUSCULAR VOLUME 91.3 fl (81.0-99.0); MONOCYTES # (AUTO) 0.6 K/uL (0.4-2.0); MONOCYTES % (AUTO) 8.6 (0-10); NEUTROPHILS # (AUTO) 3.5 K/ul (2.0-6.9); NEUTROPHILS % (AUTO) 52.8 % (42.2-75.2); PLATELET COUNT 214 10^3/uL (140-440); RDW COEFFICIENT OF VARIATION 13.2 % (11.6-14.8); RED BLOOD COUNT 4.16 10^6/ul (4.20-5.40); WHITE BLOOD COUNT 6.62 K/ul (4.6-10.2)
[2021-07-05 18:12] LABS: ABSOLUTE RETICS # 0.0658; RETICULOCYTE % 1.57 %; RETICULOCYTE HEMOGLOBIN 34.6
[2021-07-05 18:22] LABS: ALANINE AMINOTRANSFERASE 9.5 U/L (0-35); ALBUMIN 3.78 g/dL (3.5-5.0); ALKALINE PHOSPHATASE 102.1 U/L (53-141); ASPARTATE AMINO TRANSFERASE 21.7 U/L (14-36); BILIRUBIN,TOTAL 0.23 mg/dL (0.2-1.3); CALCIUM 8.69 mg/dL (8.4-10.2); CARBON DIOXIDE 30.6 mmol/L (22-30.0); CHLORIDE 105.1 mmol/L (98-107); CREATINE KINASE 41.9 U/L (30-135); CREATININE 1.31 mg/dL (0.60-1.30); GLUCOSE 101.8 mg/dL (74-106); POTASSIUM 3.98 mmol/L (3.5-5.1); SODIUM 143.2 mmol/L (134.5-145); TOTAL PROTEIN 7.14 g/dL (6.3-8.2)
[2021-07-05 18:28] LABS: IRON 67.6 ug/dL (37-170)
[2021-07-05 18:58] LABS: TROPONIN I < 0.012 ng/ml (0.0000-0.120)
[2021-07-05 19:21] LABS: BILIRUBIN,URINE Negative (NEGATIVE); CLARITY,URINE Clear (CLEAR); COLOR,URINE Yellow (YELLOW); GLUCOSE, URINE (UA) Negative (NEGATIVE); KETONES,URINE Negative (NEGATIVE); LEUKOCYTE ESTERASE ,URINE Trace (NEGATIVE); NITRITE,URINE Negative (NEGATIVE); PROTEIN,URINE Negative (NEGATIVE); URINE, BLOOD Negative (NEGATIVE); UROBILINOGEN,URINE 0.2 (0.2)
[2021-07-05 19:26] LABS: MUCUS,URINE TRACE (NOT PRESENT); URINE WBC, MICROSCOPIC 20-30 (0-2)
[2021-07-05 19:27] LABS: BACTERIA,URINE 1+ (NOT PRESENT)
[2021-07-05 19:28] LABS: FOLATE 5.74 ng/mL
[2021-07-05] MEDS ORDERED: DECADRON IM ONE (19:56)
[2021-07-05] MEDS: PROTONIX PO SCH (20:19)
[2021-07-05] MEDS: TORADOL IVP PRN (20:19)
[2021-07-05] MEDS: VASOTEC IV IVP PRN (20:19)
[2021-07-05] MEDS: SINEQUAN PO SCH (20:19)
[2021-07-05] MEDS: ELIQUIS PO SCH ×2 (20:20→21:39)
[2021-07-05] MEDS: NEURONTIN PO SCH (20:20)
[2021-07-05] MEDS: BUSPAR PO SCH (20:20)
[2021-07-05] MEDS: TYLENOL PO SCH (20:20)
[2021-07-06 02:01] LABS: BASOPHILS % (AUTO) 0.3 % (0.0-3.0); HEMATOCRIT 36.5 % (37.0-47.0); HEMOGLOBIN 11.6 g/dl (12.0-16.0); IMMATURE GRANULOCYTE % (AUTO) 0.3 % (0.0-5.0); LYMPHOCYTES # (AUTO) 1.1 K/uL (0.60-3.4); LYMPHOCYTES % (AUTO) 17.7 (10.0-50.0); MEAN CORPUSCULAR HEMOGLOBIN 28.6 pg (27.0-31.0); MEAN CORPUSCULAR HGB CONC 31.8 (31.8-35.4); MEAN CORPUSCULAR VOLUME 90.1 fl (81.0-99.0); MONOCYTES # (AUTO) 0.1 K/uL (0.4-2.0); MONOCYTES % (AUTO) 1.1 (0-10); NEUTROPHILS # (AUTO) 4.9 K/ul (2.0-6.9); NEUTROPHILS % (AUTO) 80.6 % (42.2-75.2); PLATELET COUNT 200 10^3/uL (140-440); RDW COEFFICIENT OF VARIATION 12.9 % (11.6-14.8); RED BLOOD COUNT 4.05 10^6/ul (4.20-5.40); WHITE BLOOD COUNT 6.09 K/ul (4.6-10.2)
[2021-07-06] MEDS: VASOTEC IV IVP PRN ×2 (02:10→10:51)
[2021-07-06] MEDS: TORADOL IVP PRN (02:10)
[2021-07-06 02:12] LABS: CREATINE KINASE 69.3 U/L (30-135)
[2021-07-06 02:14] LABS: ALANINE AMINOTRANSFERASE 10.3 U/L (0-35); ALBUMIN 3.66 g/dL (3.5-5.0); ALKALINE PHOSPHATASE 99.3 U/L (53-141); BILIRUBIN,TOTAL 0.29 mg/dL (0.2-1.3); BLOOD UREA NITROGEN 22.9 mg/dL (7-17); CALCIUM 8.87 mg/dL (8.4-10.2); CARBON DIOXIDE 26.9 mmol/L (22-30.0); CREATININE 1.37 mg/dL (0.60-1.30); GLUCOSE 170.9 mg/dL (74-106); POTASSIUM 4.51 mmol/L (3.5-5.1); SODIUM 141.7 mmol/L (134.5-145); TOTAL PROTEIN 6.8 g/dL (6.3-8.2)
[2021-07-06 02:25] LABS: TROPONIN I < 0.012 ng/ml (0.0000-0.120)
[2021-07-06] MEDS: LASIX TAB PO SCH (05:36)
[2021-07-06] MEDS ORDERED: CATAPRES PO ONE (06:14)
[2021-07-06] MEDS: COZAAR PO SCH ×3 (06:45→20:23)
[2021-07-06] MEDS: LOTENSIN PO SCH (08:23)
[2021-07-06] MEDS: BUSPAR PO SCH ×4 (08:23→20:23)
[2021-07-06] MEDS: NEURONTIN PO SCH ×3 (08:24→20:24)
[2021-07-06] MEDS: TYLENOL PO SCH ×3 (08:24→22:22)
[2021-07-06] MEDS: NORVASC PO SCH (08:27)
[2021-07-06] MEDS: FERROUS SULFATE PO SCH (08:27)
[2021-07-06] MEDS: ARICEPT PO SCH (08:27)
[2021-07-06] MEDS: PROTONIX PO SCH ×2 (08:27→17:13)
[2021-07-06] MEDS: ZEBETA PO SCH (08:27)
[2021-07-06] MEDS: ELIQUIS PO SCH ×2 (08:28→20:24)
[2021-07-06] MEDS ORDERED: MICRO-K CAP PO SCH (09:00)
[2021-07-06] MEDS ORDERED: TORADOL IVP PRN (10:20)
[2021-07-06] MEDS: OXYCODONE PO PRN ×2 (10:26→17:13)
[2021-07-06] MEDS: LIPITOR PO SCH (17:55)
[2021-07-06] MEDS: SINEQUAN PO SCH (20:24)
[2021-07-07] MEDS: OXYCODONE PO PRN ×3 (05:04→17:39)
[2021-07-07] MEDS: HALDOL IM PRN (05:06)
[2021-07-07 05:49] LABS: BASOPHILS % (AUTO) 0.3 % (0.0-3.0); EOSINOPHILS % (AUTO) 0.3 % (0.0-7.0); HEMATOCRIT 36.1 % (37.0-47.0); HEMOGLOBIN 11.5 g/dl (12.0-16.0); IMMATURE GRANULOCYTE % (AUTO) 0.2 % (0.0-5.0); LYMPHOCYTES # (AUTO) 3.2 K/uL (0.60-3.4); LYMPHOCYTES % (AUTO) 34.3 (10.0-50.0); MEAN CORPUSCULAR HEMOGLOBIN 28.7 pg (27.0-31.0); MEAN CORPUSCULAR HGB CONC 31.9 (31.8-35.4); MONOCYTES # (AUTO) 0.6 K/uL (0.4-2.0); MONOCYTES % (AUTO) 6.1 (0-10); NEUTROPHILS # (AUTO) 5.5 K/ul (2.0-6.9); NEUTROPHILS % (AUTO) 58.8 % (42.2-75.2); PLATELET COUNT 218 10^3/uL (140-440); RDW COEFFICIENT OF VARIATION 13.5 % (11.6-14.8); RED BLOOD COUNT 4.01 10^6/ul (4.20-5.40); WHITE BLOOD COUNT 9.36 K/ul (4.6-10.2)
[2021-07-07 06:06] LABS: ALANINE AMINOTRANSFERASE 9.2 U/L (0-35); ALBUMIN 3.85 g/dL (3.5-5.0); ALKALINE PHOSPHATASE 95.2 U/L (53-141); ASPARTATE AMINO TRANSFERASE 18.7 U/L (14-36); BILIRUBIN,TOTAL 0.35 mg/dL (0.2-1.3); BLOOD UREA NITROGEN 29.2 mg/dL (7-17); CALCIUM 8.84 mg/dL (8.4-10.2); CARBON DIOXIDE 26.8 mmol/L (22-30.0); CHLORIDE 101.8 mmol/L (98-107); CREATININE 1.43 mg/dL (0.60-1.30); POTASSIUM 3.66 mmol/L (3.5-5.1); TOTAL PROTEIN 6.98 g/dL (6.3-8.2)
[2021-07-07] MEDS: LASIX TAB PO SCH (06:55)
[2021-07-07] MEDS: PROTONIX PO SCH ×2 (06:56→17:39)
[2021-07-07] MEDS: LOTENSIN PO SCH (09:04)
[2021-07-07] MEDS: TYLENOL PO SCH ×3 (09:04→21:15)
[2021-07-07] MEDS: ZEBETA PO SCH (09:04)
[2021-07-07] MEDS: COZAAR PO SCH ×2 (09:05→21:15)
[2021-07-07] MEDS: FERROUS SULFATE PO SCH (09:05)
[2021-07-07] MEDS: BUSPAR PO SCH ×4 (09:05→21:15)
[2021-07-07] MEDS: NORVASC PO SCH (09:05)
[2021-07-07] MEDS: MICRO-K CAP PO SCH (09:05)
[2021-07-07] MEDS: ARICEPT PO SCH (09:05)
[2021-07-07] MEDS: ELIQUIS PO SCH ×2 (09:06→21:15)
[2021-07-07] MEDS: NEURONTIN PO SCH ×3 (09:08→21:15)
[2021-07-07] MEDS: VASOTEC IV IVP PRN ×2 (12:56→18:26)
[2021-07-07] MEDS: LIPITOR PO SCH (17:38)
[2021-07-07] MEDS: SINEQUAN PO SCH (21:16)
[2021-07-08] MEDS: OXYCODONE PO PRN ×2 (00:42→20:23)
[2021-07-08 05:08] LABS: BASOPHILS % (AUTO) 0.5 % (0.0-3.0); EOSINOPHILS # (AUTO) 0.1 K/ul (0.0-0.7); HEMATOCRIT 34.7 % (37.0-47.0); HEMOGLOBIN 10.8 g/dl (12.0-16.0); IMMATURE GRANULOCYTE % (AUTO) 0.5 % (0.0-5.0); LYMPHOCYTES # (AUTO) 3.3 K/uL (0.60-3.4); LYMPHOCYTES % (AUTO) 42.6 (10.0-50.0); MEAN CORPUSCULAR HEMOGLOBIN 28.8 pg (27.0-31.0); MEAN CORPUSCULAR HGB CONC 31.1 (31.8-35.4); MEAN CORPUSCULAR VOLUME 92.5 fl (81.0-99.0); MONOCYTES # (AUTO) 0.5 K/uL (0.4-2.0); MONOCYTES % (AUTO) 6.6 (0-10); NEUTROPHILS # (AUTO) 3.8 K/ul (2.0-6.9); NEUTROPHILS % (AUTO) 48.8 % (42.2-75.2); PLATELET COUNT 195 10^3/uL (140-440); RDW COEFFICIENT OF VARIATION 13.7 % (11.6-14.8); RED BLOOD COUNT 3.75 10^6/ul (4.20-5.40); WHITE BLOOD COUNT 7.77 K/ul (4.6-10.2)
[2021-07-08 05:24] LABS: ALANINE AMINOTRANSFERASE 7.9 U/L (0-35); ALBUMIN 3.27 g/dL (3.5-5.0); ALKALINE PHOSPHATASE 80.2 U/L (53-141); ASPARTATE AMINO TRANSFERASE 20.1 U/L (14-36); BILIRUBIN,TOTAL 0.3 mg/dL (0.2-1.3); BLOOD UREA NITROGEN 32.5 mg/dL (7-17); CALCIUM 8.34 mg/dL (8.4-10.2); CHLORIDE 102.8 mmol/L (98-107); CREATININE 1.48 mg/dL (0.60-1.30); GLUCOSE 90.7 mg/dL (74-106); POTASSIUM 3.99 mmol/L (3.5-5.1); SODIUM 138.5 mmol/L (134.5-145); TOTAL PROTEIN 6.22 g/dL (6.3-8.2)
[2021-07-08] MEDS: LASIX TAB PO SCH (06:06)
[2021-07-08] MEDS: PROTONIX PO SCH ×2 (06:06→16:08)
[2021-07-08] MEDS: ZEBETA PO SCH (08:22)
[2021-07-08] MEDS: TYLENOL PO SCH ×3 (08:22→20:23)
[2021-07-08] MEDS: LOTENSIN PO SCH (08:23)
[2021-07-08] MEDS: BUSPAR PO SCH ×4 (08:23→20:22)
[2021-07-08] MEDS: NORVASC PO SCH (08:23)
[2021-07-08] MEDS: NEURONTIN PO SCH ×3 (08:23→20:23)
[2021-07-08] MEDS: COZAAR PO SCH (08:23)
[2021-07-08] MEDS: ARICEPT PO SCH (08:23)
[2021-07-08] MEDS: MICRO-K CAP PO SCH (08:23)
[2021-07-08] MEDS: FERROUS SULFATE PO SCH (08:24)
[2021-07-08] MEDS: ELIQUIS PO SCH ×2 (08:24→20:23)
[2021-07-08] MEDS: LIPITOR PO SCH (16:07)
[2021-07-08] MEDS: HALDOL IM PRN (16:52)
[2021-07-08] MEDS: SINEQUAN PO SCH (20:23)
[2021-07-09 04:33] LABS: BASOPHILS % (AUTO) 0.5 % (0.0-3.0); EOSINOPHILS # (AUTO) 0.1 K/ul (0.0-0.7); EOSINOPHILS % (AUTO) 1.3 % (0.0-7.0); HEMATOCRIT 36.1 % (37.0-47.0); HEMOGLOBIN 11.2 g/dl (12.0-16.0); IMMATURE GRANULOCYTE % (AUTO) 0.3 % (0.0-5.0); LYMPHOCYTES # (AUTO) 3.3 K/uL (0.60-3.4); LYMPHOCYTES % (AUTO) 44.4 (10.0-50.0); MEAN CORPUSCULAR HEMOGLOBIN 28.7 pg (27.0-31.0); MEAN CORPUSCULAR VOLUME 92.6 fl (81.0-99.0); MONOCYTES # (AUTO) 0.6 K/uL (0.4-2.0); MONOCYTES % (AUTO) 8.4 (0-10); NEUTROPHILS # (AUTO) 3.4 K/ul (2.0-6.9); NEUTROPHILS % (AUTO) 45.1 % (42.2-75.2); PLATELET COUNT 203 10^3/uL (140-440); RDW COEFFICIENT OF VARIATION 13.7 % (11.6-14.8); WHITE BLOOD COUNT 7.52 K/ul (4.6-10.2)
[2021-07-09 04:48] LABS: ALANINE AMINOTRANSFERASE 8.2 U/L (0-35); ALBUMIN 3.37 g/dL (3.5-5.0); ALKALINE PHOSPHATASE 79.9 U/L (53-141); ASPARTATE AMINO TRANSFERASE 20.5 U/L (14-36); BILIRUBIN,TOTAL 0.34 mg/dL (0.2-1.3); CALCIUM 8.1 mg/dL (8.4-10.2); CARBON DIOXIDE 28.2 mmol/L (22-30.0); CHLORIDE 102.4 mmol/L (98-107); CREATININE 1.48 mg/dL (0.60-1.30); GLUCOSE 95.7 mg/dL (74-106); POTASSIUM 3.96 mmol/L (3.5-5.1); SODIUM 139.1 mmol/L (134.5-145); TOTAL PROTEIN 6.37 g/dL (6.3-8.2)
[2021-07-09] MEDS: LASIX TAB PO SCH (06:01)
[2021-07-09] MEDS: PROTONIX PO SCH ×2 (06:01→17:00)
[2021-07-09] MEDS: LOTENSIN PO SCH (09:58)
[2021-07-09] MEDS: FERROUS SULFATE PO SCH (09:59)
[2021-07-09] MEDS: NEURONTIN PO SCH ×3 (09:59→20:39)
[2021-07-09] MEDS: MICRO-K CAP PO SCH (10:00)
[2021-07-09] MEDS: ZEBETA PO SCH (10:00)
[2021-07-09] MEDS: ARICEPT PO SCH (10:01)
[2021-07-09] MEDS: NORVASC PO SCH (10:01)
[2021-07-09] MEDS: ELIQUIS PO SCH ×2 (10:02→20:41)
[2021-07-09] MEDS: BUSPAR PO SCH ×4 (10:06→20:36)
[2021-07-09] MEDS: TYLENOL PO SCH ×3 (10:06→20:39)
--- NOTE | 2021-07-09 10:17 | US ---
EXAM: Venous Doppler bilateral lower extremity. HISTORY: Bilateral leg pain, tenderness, and swelling. History of pulmonary embolus. COMPARISON: None. TECHNIQUE: Duplex Doppler ultrasound of the right and left lower extremity. Color Doppler, spectral Doppler waveforms, and mensah scale images obtained. FINDINGS: The common femoral, greater saphenous, superficial femoral, profunda femoris, popliteal, anterior tib ial, and posterior tibial veins are freely compressible with spontaneous flow. Mild subcutaneous edema noted in the right leg. IMPRESSION: No evidence of deep vein thrombosis.
[2021-07-09] MEDS ORDERED: SODIUM CHLORIDE 1,000 ML IV SCH (10:30)
--- NOTE | 2021-07-09 10:45 | PCM.PROG ---
Attending Provider: ATTENDING PROVIDER: Dr. HUMZA SAENZ This patient is seen with Terri Otto, Nurse Practitioner. DATE OF SERVICE: 07/09/21 SUBJECTIVE: This 86 year old /WHITE F was hospitalized 07/05/21. The patient is resting comfortably. She had some confusion over the weekend likely due to change of place. Respiratory status is stable. She will be getting a venous scan today as unable to do over the weekend. Hemoglobin is stable. REVIEW OF SYSTEMS: CONSTITUTIONAL: No night sweats. No fatigue, malaise, lethargy. No fever or chills. HEENT: Eyes: No visual changes. No eye pain. No eye discharge. ENT: No runny nose. No epistaxis. No sinus pain. No odynophagia. No congestion. RESPIRATORY: No cough, no congestion. No hemoptysis. No shortness of breath. CARDIOVASCULAR: No angina symptoms. No CHF symptoms. No atypical chest pain for CAD. No palpitations. No orthopnea.. GASTROINTESTINAL: No abdominal pain. No nausea or vomiting. No diarrhea or constipation. No hematemesis. No hematochezia. GENITOURINARY: No urgency. No frequency. No dysuria. No hematuria. No obstructive symptoms. No discharge. No pain. No significant abnormal bleeding. MUSCULOSKELETAL: No musculoskeletal pain; no joint swelling. NEUROLOGICAL: Awake, alert, intermittent confusion. No headache. No neck pain. No syncope. No seizures. No dizziness. PSYCHIATRIC: Not anxious. No depression. No suicidal thoughts. No homicidal thoughts. SKIN: No rash. No lesions. No wounds. ENDOCRINE: No unexplained weight loss. No weight gain. HEMATOLOGIC/LYMPHATIC: No anemia. No purpura. No petechiae. No prolonged or excessive bleeding. No palpable lymph nodes. PHYSICAL EXAMINATION: GENERAL: The patient is awake, oriented to person, not place or time, lying/sit ting in bed in no distress. VITAL SIGNS: Temperature 98.4 F, Pulse 54, Respiratory Rate 16, BP 130/58, Pulse Ox 96% HEENT: Head normocephalic, atraumatic. Eyes: Extraocular muscles are intact. Pupils are equal, round and reactive to light and accommodation. Ears: No lesions. Nose appeared normal. Throat: No exudate or erythema. NECK: Supple. No JVD, no carotid bruit. No lymphadenopathy or thyromegaly. LUNGS: Diminished breath sounds. Clear to auscultation. Percussion note normal. Chest symmetrical. HEART: S1, S2, no S3. No murmurs. No cyanosis or clubbing. No ascites. Pulses: Dorsalis pedis and posterior tibial pulses +1 to +2 both sides. ABDOMEN: Soft. Non-tender. Bowel sounds active. No CVA tenderness. No mass felt. EXTREMITIES: Bilateral trace leg edema. Full range of motion of all extremities, equal. NEUROLOGIC: No focal deficit. Cranial nerves II through XII are grossly intact. No headache. No double vision. SKIN: Not dry. Intact. Turgor-normal. LYMPHATIC: No palpable lymph nodes/no lymphedema. MUSCULOSKELETAL: Normal joints with no swelling. Muscle tone is normal. LAB REVIEW: 07/09/21 04:15 07/09/21 04:15 07/09/21 04:15: Sodium 139.1, Potassium 3.96, Chloride 102.4, Carbon Dioxide 28.2, Anion Gap 12.46, BUN 39.0 H, Creatinine 1.48 H, Estimated GFR (MDRD) 34.00, BUN/Creatinine Ratio 26.35, Glucose 95.7, Calcium 8.10 L, Total Bilirubin 0.34, AST 20.5, ALT 8.2, Alkaline Phosphatase 79.9, Total Protein 6.37, Albumin 3.37 L, Globulin 3.00, Albumin/Globulin Ratio 1.12 07/09/21 04:15: WBC 7.52, RBC 3.90 L, Hgb 11.2 L, Hct 36.1 L, MCV 92.6, MCH 28.7, MCHC 31.0 L, RDW Coeff of Gabriella 13.7, Plt Count 203, Immature Gran % (Auto) 0.3, Neut % (Auto) 45.1, Lymph % (Auto) 44.4, [place] % (Auto) 8.4, Eos % (Auto) 1.3, Baso % (Auto) 0.5, Neut # (Auto) 3.4, Lymph # (Auto) 3.3, [place] # (Auto) 0.6, Eos # (Auto) 0.1, Baso # (Auto) 0.0, Immature Gran # (Auto) 0.0 ASSESSMENT: Please see below. 1. Left subsegmental PE. 2. Renal azotemia. 3. Dementia. PLAN: 1. Bilateral venous today. 2. 75 mL NS, one bag only. 3. Discontinue Toradol. Plan and coordination of the patient's care discussed in the presence of Airways Control Specialist and nurse. CONDITION: Stable SCRIBED BY: KISHA FONTANA Phonograph Cartridge Assembler scribed while in presence of service performed by Dr. Saenz/Terri Otto APRN on 07/09/21 ([id number])
--- NOTE | 2021-07-09 13:16 | HP ---
DATE OF SERVICE: 07/05/2021 REASON FOR HOSPITALIZATION/HISTORY OF PRESENT ILLNESS: CT of chest this AM showed left subsegmental PE. PAST MEDICAL HISTORY/PAST SURGICAL HISTORY: Bilateral leg edema Dementia Chronic kidney disease stage 3 DJD spine Hypertension Depression Dyslipidemia History of esophageal stricture Kyphosis Cervical radiculopathy REVIEW OF SYSTEMS: CONSTITUTIONAL: No fever, Fatigue. HEENT: No sinus drainage, no sore throat. RESPIRATORY: No cough, no congestion. CARDIOVASCULAR: No atypical chest pain for coronary artery disease. No angina, CHF symptoms, palpitations or shortness of breath. GASTROINTESTINAL: No melena or abdominal pain. No GERD. GENITOURINARY: No hematuria, no prostatism, no polyuria. MANAGER OF INFORMATION: No blackout, no dizziness, no headache, no double vision. GAIT: Unsteady. MUSCULOSKELETAL: Osteoarthritis pain, no joint swelling. ENDOCRINE: No weight loss, no weight gain. SKIN: Not dry, no rash. PSYCHIATRIC: Not anxious, no depression, no suicidal thoughts, no homicidal thoughts. SOCIAL HISTORY: Marital Status: . Tobacco Usage: No. FAMILY HISTORY: MEDICATIONS: Lasix 40mg daily K-tab 10mg daily Lipitor 40mg daily (dinner) Neurontin 300mg TID Nexium 40mg BID AM HS Bisoprolol 5mg PO daily Doxepin 25mg one HS Donepezil 10mg PO daily Benazepril 40mg PO daily Iron 325mg PO daily Acetaminophen 500mg TID PRN Morning, Noon and HS Buspirone 10mg 1/2 QID Pepcid 20mg BID ALLERGIES: No known drug allergies PHYSICAL EXAMINATION: GENERAL APPEARANCE: Oriented to person and place. HEENT: Normal. NECK: No JVP, no bruits. RESPIRATORY: Decreased breath sounds. CARDIOVASCULAR: S1, S2, no S3, no murmur. No cyanosis, clubbing. No ascites. GI/ABDOMEN: No tenderness. Bowel sounds are active. EXTREMITIES: +1 bilateral lower extremity edema, pulses +1, equal. MANAGER OF INFORMATION: Deep tendon reflexes, sensory, motor and gait all normal. RECTAL/PELVIC/PROSTATE: . ASSESSMENT: 1. Left subsegmental PE 2. Generalized weakness. 3. Bilateral leg edema 4. Dementia 5. Chronic kidney disease stage 3 6. DJD spine 7. Hypertension 8. Depression 9. Dyslipidemia 10.History of esophageal stricture 11.Kyphosis 12.Cervical radiculopathy PLAN: 1. Routine telemetry 2. No chest x-ray 3. CBC and CMP now and daily 4. Stat bilateral lower extremity venous 5. Eliquis 10mg PO BID 6. U/A (on telemetry orders) 7. Regular diet 8. O2 at 1-2 liters as needed PRN 9. Anemia profile 10.Had CT of chest this AM that showed PE 11. Continue Home medications 12. The patient to go through [facility] for PCR panel. TIME SPENT: More than 70 minutes. MTDD
--- NOTE | 2021-07-09 13:44 | PN ---
DATE OF SERVICE: 07/05/2021 SUBJECTIVE: 86 year old white female was admitted after seeing the report. The patient had pulmonary embolism left side. The patient needs to be on Eliquis and be monitored for respiratory status. The patient lives by herself. Sometimes confused. The son helps with her day to day living. The patient was seen and examined with the Nurse Practitioner and plan was formulated. The patient was supposed to have venous scan but she didn't go through the venous scan as she can to the hospital for admission at 5:00pm so venous scan couldn't be performed. The patient was notified for her to be hospitalized around noon time. The patient's condition is stable for now. TIME SPENT: More than 30 minutes. Plan and coordination of the patient's care discussed in the presence of nurse. JORDAN
--- NOTE | 2021-07-09 14:21 | PN ---
DATE OF SERVICE: 07/06/2021 SUBJECTIVE: 86 year old white female hospitalized with pulmonary embolism now on Eliquis. REVIEW OF SYSTEMS: CONSTITUTIONAL: No night sweats. No fatigue, malaise, lethargy. No fever or chills. HEENT: Eyes: No visual changes. No eye pain. No eye discharge. ENT: No runny nose. No epistaxis. No sinus pain. No sore throat. No odynophagia. No congestion. RESPIRATORY: No cough, no congestion. No hemoptysis. No shortness of breath. CARDIOVASCULAR: No angina symptoms. No CHF symptoms. No atypical chest pain for CAD. No palpitations. No PND. No orthopnea. GASTROINTESTINAL: No abdominal pain. No nausea or vomiting. No diarrhea or constipation. No hematemesis. No hematochezia. GENITOURINARY: No urgency. No frequency. No dysuria. No hematuria. No obstructive symptoms. No discharge. No pain. No significant abnormal bleeding. MUSCULOSKELETAL: No musculoskeletal pain; no joint swelling. NEUROLOGICAL: No headache. No neck pain. No syncope. No seizures. No dizziness. The patient is confused, somewhat better this afternoon but has been very restless. The patient has Dementia which seems to have worsened. PSYCHIATRIC: Not anxious. No depression. No suicidal thoughts. No homicidal thoughts. SKIN: No rash. No lesions. No wounds. ENDOCRINE: No unexplained weight loss. No weight gain. HEMATOLOGIC/LYMPHATIC: No anemia. No purpura. No petechiae. No prolonged or excessive bleeding. No palpable lymph nodes. PHYSICAL EXAMINATION: GENERAL: The patient is still confused but alert. Known me by names. VITAL SIGNS: Temperature 98.2, pulse 70, respiratory rate 18, blood pressure 190/80 this morning at 6:00 and pulse ox 96%.Systolic blood pressure at present time is 130/70. HEENT: Head normocephalic, atraumatic. Eyes: Extraocular muscles are intact. Pupils are equal, round and reactive to light and accommodation. Ears: No lesions. Nose appeared normal. Throat: No exudate or erythema. NECK: Supple. No JVD, no carotid bruit. No lymphadenopathy or thyromegaly. LUNGS: Decreased breath sounds but clear to auscultation. Percussion note normal. Chest symmetrical. HEART: S1, S2, no S3. No murmurs. No cyanosis or clubbing. No ascites. Pulses: Dorsalis pedis and posterior tibial pulses +1 to +2 bilaterally. ABDOMEN: Soft. Nontender. Bowel sounds active. No CVA tenderness. No mass felt. EXTREMITIES: Trace to +1 pitting edema. Full range of motion of all extremities, equal. Calf muscle nontender. NEUROLOGIC: No focal deficit. Cranial nerves II through XII are grossly intact. No headache. No double vision. SKIN: Not dry. Intact. Turgor - normal. LYMPHATIC: No palpable lymph nodes/no lymphedema. MUSCULOSKELETAL: Normal joints with no swelling. Muscle tone is normal. LABS: hgb 11.6, hct 36,. WBC 6,000 normal differential, creatinine 1.3, BUN 22. SARS Negative. Troponin negative. ASSESSMENT: 1. Pulmonary embolism, mild with no respiratory distress, no symptoms. Detected on just a plain CT scan which was done for some other reason . PLAN: 1. Continue Eliquis. Side effects of Eliquis was discussed with the family like intracranial bleed, GI bleed. No history of GI bleed. 2. The patient is going to need Haldol 1mg Q 6 hours incase the patient's behavior changes with aggressive behavior. 3. Yesterday even the patient's blood pressure was noted to be extremely high at that point the patient was given Vasotec 1.25mg Q 6 hourly. Systolic blood pressure more than 160. Found in the morning the blood pressure was reported high and at that time it was noted that the patient was not on any antihypertensive except for Zebeta so Cozaar 50mg twice a day along with Norvasc and Amlodipine 5mg BID was added. CONDITION: Stable. TIME SPENT: More than 30 minutes. Plan and coordination of the patient's care discussed in the presence of nurse. JORDAN
--- NOTE | 2021-07-09 14:31 | PN ---
DATE OF SERVICE: 07/07/2021 SUBJECTIVE: 86 year old white female hospitalized with pulmonary embolism. The patient condition is stable. She is feeling better. Pain in the back is more or less controlled. The patient is still somewhat drowsy. REVIEW OF SYSTEMS: CONSTITUTIONAL: No night sweats. No fatigue, malaise, lethargy. No fever or chills. HEENT: Eyes: No visual changes. No eye pain. No eye discharge. ENT: No runny nose. No epistaxis. No sinus pain. No sore throat. No odynophagia. No congestion. RESPIRATORY: No cough, no congestion. No hemoptysis. No shortness of breath. CARDIOVASCULAR: No angina symptoms. No CHF symptoms. No atypical chest pain for CAD. No palpitations. No PND. No orthopnea. GASTROINTESTINAL: No abdominal pain. No nausea or vomiting. No diarrhea or constipation. No hematemesis. No hematochezia. GENITOURINARY: No urgency. No frequency. No dysuria. No hematuria. No obstructive symptoms. No discharge. No pain. No significant abnormal bleeding. MUSCULOSKELETAL: No musculoskeletal pain; no joint swelling. NEUROLOGICAL: No headache. No neck pain. No syncope. No seizures. No dizziness. PSYCHIATRIC: Not anxious. No depression. No suicidal thoughts. No homicidal thoughts. SKIN: No rash. No lesions. No wounds. ENDOCRINE: No unexplained weight loss. No weight gain. HEMATOLOGIC/LYMPHATIC: No anemia. No purpura. No petechiae. No prolonged or excessive bleeding. No palpable lymph nodes. PHYSICAL EXAMINATION: VITAL SIGNS: Temperature 97.9, pulse 55, respiratory rate 16, blood pressure 168/59 and pulse ox 93%. HEENT: Head normocephalic, atraumatic. Eyes: Extraocular muscles are intact. Pupils are equal, round and reactive to light and accommodation. Ears: No lesions. Nose appeared normal. Throat: No exudate or erythema. NECK: Supple. No JVD, no carotid bruit. No lymphadenopathy or thyromegaly. LUNGS: Decreased breath sounds but clear to auscultation. Percussion note normal. Chest symmetrical. HEART: S1, S2, no S3. No murmurs. No cyanosis or clubbing. No ascites. Pulses: Dorsalis pedis and posterior tibial pulses +1 to +2 bilaterally. ABDOMEN: Soft. Nontender. Bowel sounds active. No CVA tenderness. No mass felt. EXTREMITIES: No edema. Full range of motion of all extremities, equal. NEUROLOGIC: No focal deficit. Cranial nerves II through XII are grossly intact. No headache. No double vision. SKIN: Not dry. Intact. Turgor - normal. LYMPHATIC: No palpable lymph nodes/no lymphedema. MUSCULOSKELETAL: Normal joints with no swelling. Muscle tone is normal. LABS: hgb 11.5, hct 36, WBC 9,300 normal differential, creatinine 1.4, BUN 296, potassium 3.6 ASSESSMENT: 1. Pulmonary embolism seems to be small emboli with practically no symptoms of it. Calf muscles are nontender, no swelling of the legs noted. PLAN: 1. Venous scan when it is available to be done probably on Thursday or Thursday morning 2. Mental status seems to be more or less stable with no aggressive behavior. CONDITION: Stable. TIME SPENT: More than 30 minutes. Plan and coordination of the patient's care discussed in the presence of nurse. JORDAN
--- NOTE | 2021-07-09 15:05 | RS.PTINEVL ---
Subjective - Patient information Date of Evaluation: 07/09/21 Date of Arrival on Unit: 07/05/21 Admitted From:: Home Diagnosis: PE, SOA, difficulty walking Usual Living Arrangement: [facility] Living Arrangement Comments: has a paid caregiver that assists with ambulation, bathing, dressing, etc. Home Environment: Apartment, Level/No stairs Medical History: Hypertension, Dementia (alzheimers) Medical History Comments:: osteoporosis, DJD, cervical radiculopathy Subjective Information/ Patient Comments:: pt states that she is doing better. States that she wished she could see her family. - Level of function Prior to this admission, the patient could do the following:: Partially Dependent Ambulation Current Level of Function: Partially Dependent Current Equipment Used at Home: cane, wheeled walker Pain Assessement - Location B knees Description: Aching Pain Behavior: Rubbing Site, Facial Grimacing Pain Aggravating Factors: Changing Position, Standing, Walking Interventions - Objective Patient Orientation: Person, Place Current Interventions: IV's, Telemetry Range of Motion - ROM Right Upper Extremity AROM: WFL's Left Upper Extremity AROM: WFL's Right Lower Extremity AROM: Slight limitation Left Lower Extremity AROM: Slight limitation (decreased knee ext B LE) Muscle Strength - Muscle Strength Right Upper Extremity Strength: Mild Weakness (grossly 4/5) Left Upper Extremity Strength: Mild Weakness (grossly 4/5) Right Lower Extremity Strength: Mild Weakness (hip flex 4-/5, knee flex 4/5, ext 4-/5, ankle 4/5) Left Lower Extremity Strength: Mild Weakness (hip flex 4-/5, knee flex 4/5, ext 4-/5, ankle 4/5) Sensation - Sensation Right Upper Extremity Sensation: Intact/Normal Left Upper Extremity Sensation: Intact/Normal Right Lower Extremity Sensation: Intact/Normal Left Lower Extremity Sensation: Intact/Normal Palpation Palpation Findings: None/Normal Balance - Sitting Balance and Reactions Static Sitting Balance: Fair Dynamic Sitting Balance: Poor - Standing Balance and Reactions Static Standing Balance: Poor Dynamic Standing Balance: Poor Standing Equilibrium Reactions: Delayed Left, Delayed Right Standing Protective Reactions: Delayed Left, Delayed Right Functional Mobility - Bed Mobility Rolling R/L: Min Assist Scooting: Min Assist Supine to Sit: Min Assist Sit to Supine: Not Tested - Transfers Sit to Stand: Min Assist, 1 person assist, 2 person assist Stand to Sit: Min Assist, 1 person assist - Safety Awareness Safety Awareness: Poor TASHA INDEX SCORE: n/a Ambulation - Ambulation Assistive Device Used: Rolling Walker Orthotic/Prosthetic Device: No Distance: 60ft Assistance needed with Ambulation: Min Assist, 1 person assist, 2 person assist Gait Deviations: Wide Based gait, Forward posture, Short stride Factors Affecting Ambulation: Decreased Balance, Weakness, Decreased ROM, Decreased Safety, Cognitive Status, Limited Endurance Treatment time - Time with patient Length of Evaluation: 21 Total treatment time: 38 Patient Education - Education Patient Education: Activity Modification, Education of Plan of Care Teaching Recipient: Patient Teaching Methods: Discussion, Demonstration Assessment - Assessment Problem List:: Decreased level of function, Requires training/education, Decreased safety/Risk of falls, Weakness, Pain limits previous level of function, Cognitive status limits abilities Rehab Potential: Fair Further Therapy Indicated?: Yes Candidate for Swing Bed for Therapy Services?: Feel pt may not be a candidate for swing bed may need to be reevaluated at a later time. Evaluation Complexity: HISTORY: Medium, EXAM OF BODY SYSTEMS: Medium, CLINICAL PRESENTATION: Medium, CLINICAL DECISION MAKING: Medium Patient's Goal(s): I want to be able to see my family and go home. Short Term Goals GOAL #1: pt independent with rolling and scooting in bed. Goal to be met by: 07/12/21 GOAL #2: Transfer sup to/from sit with CGA Goal to be met by: 07/12/21 GOAL #3: Sit to/from stand CGA Goal to be met by: 07/12/21 GOAL #4: pt amb with rwx 100ft with CGA no LOB Goal to be met by: 07/12/21 Vocational Nurse Lvn Goals GOAL #1: pt transfer sup to/from sit to/from stand independently Goal to be met by: 07/15/21 GOAL #2: pt amb functional distances w/w/o AD with no LOB independently Goal to be met by: 07/15/21 Progress towards goal: Partially Met GOAL #3: pt ascend/descend 2 steps with HR SBA Goal to be met by: 07/15/21 Plan Plan of Care: Therapeutic EX, Therapeutic Activity Other:: gait training Frequency of Treatment: 1-2 X day, as tolerated Duration of Treatment: 6 days Anticipated [facility]charge Dest[facility] Treatment Diagnosis (ICD 10 Codes): gait difficulty R 26.2. weakness M62.81. impaired balance R 26.81 Has the Physician been added for Co-signature?: Yes
--- NOTE | 2021-07-09 15:07 | RS.OTINEVL ---
Subjective - Patient information Date of Evaluation: 07/09/21 Date of Arrival on Unit: 07/05/21 Admitted From:: [facility] Diagnosis: Pulmonary Embolism, SOA PRECAUTIONS: fall precautions Usual Living Arrangement: [facility] Facility Living Arrangement Comments: lives at [facility]. states passed 3 weeks ago Home Environment: House, Level/No stairs, Rail Medical History: Hypertension, Arthritis Medical History Comments:: CKD, anemia, LATEX ALLERGY?: No Surgical History: Hysterectomy Surgical History Comments:: B cataracts Medications: see chart Subjective Information/ Patient Comments:: "I'm never going to get out of here." - Level of function Prior to this admission, the patient could do the following:: Independent Selfcare, Independent ADL's, Independent Ambulation Abilities prior to this admission: Pt has CG at her apartment that help her with bathing, dressing, and transfers to toilet. Current Level of Function: Partially Dependent Current Equipment Used at Home: cane, wheeled walker Interventions - Objective Patient Orientation: Person Current Interventions: IV's Observation: Pt is min A to CGA to complete sit to stand from chair. Pt requires min A for transfers due to requiring verbal cues and tactile cues to complete transfer with RW. Pt is weak and leans forward toward the RW and pushes the walk er out in front of her. Pt requires cues during toileting. Pt is independent with personal hygiene. Interventions - ROM Right Upper Extremity AROM: Slight limitation Left Upper Extremity AROM: Slight limitation - Strength Right Upper Extremity Strength: Mild Weakness Left Upper Extremity Strength: Mild Weakness - Sensation Right Upper Extremity Sensation: Intact/Normal Left Upper Extremity Sensation: Intact/Normal Balance - Sitting Balance Static Sitting Balance: Fair Dynamic Sitting Balance: Fair - Standing Balance Static Standing Balance: Poor Dynamic Standing Balance: Poor ADL Skills - Self Feeding Self Feeding: Independent - Grooming Grooming: Min Assist - Bathing Bathing UE: Min Assist Bathing LE: Min Assist - Dressing Dressing UE: Min Assist Dressing LE: Min Assist - Toilet Management Toileting Management: CGA Functional Mobility - Bed Mobility Rolling R/L: Min Assist Scooting: Min Assist Supine to Sit: Min Assist - Transfers Sit to Stand: Min Assist Stand to Sit: Min Assist Stand Pivot Transfers: Min Assist TASHA INDEX SCORE: . Additional Treatment Performed - Additional units charged ADL: 15 - Time with patient Length of Evaluation: 20 Total treatment time: 35 Activities Do you enjoy playing games?: Yes Would you be interested in leaving your room for activities?: Yes Would you enjoy group activities?: Yes Do you have difficulty with your vision?: Yes Patient Interests:: Watching Television, Visiting/Socializing Patient Education Patient Education: Education of diagnosis, Body/Joint mechanics, Home Exercise Program, Education of Plan of Care Teaching Recipient: Patient Teaching Methods: Teach Back Method Used, Discussion, Demonstration Assessment Problem List:: Decreased level of function, Requires training/education, Decreased safety/Risk of falls, Weakness, Pain limits previous level of function Rehab Potential: Good Further Therapy Indicated?: Yes Evaluation Complexity: HISTORY: Medium, EXAM OF BODY SYSTEMS: Medium, CLINICAL DECISION MAKING: Medium Patient's Goal(s): To get to go home soon. Short Term Goals - Goals GOAL 1: Pt to complete sink level ADLS with RW Mod-Independent. Goal to be met by: 07/12/21 GOAL 2: Pt to increase safety of toilet transfers to SUP. Goal to be met by: 07/12/21 GOAL 3: Pt to increase dyn. std. bal. to Fair+. Goal to be met by: 07/12/21 GOAL 4: To increase activity tolerance to 10 minutes in standing activity. Goal to be met by: 07/12/21 Lifter/Driver Goals GOAL 1: Pt to be SUP for ADLS. Goal to be met by: 07/17/21 GOAL 2: Pt to increase dyn. std. bal. to G- Goal to be met by: 07/17/21 GOAL 3: Pt to increase activity tolerance to 15 minutes to increase safety. Goal to be met by: 07/17/21 Plan Plan of Care: Therapeutic EX, Therapeutic Activity, Self-Care/Home Management Frequency of Treatment: 1-2 X day, as tolerated Anticipated Discharge Destination: Assisted Living Facility Treatment Diagnosis (ICD 10 Codes): Weakness R53.1, Z74.1 Need for assistance with personal care. Has the Physician been added for Co-signature?: Yes
[2021-07-09] MEDS: LIPITOR PO SCH (16:59)
[2021-07-09] MEDS: SINEQUAN PO SCH (20:39)
[2021-07-09] MEDS: HALDOL IM PRN (21:51)
[2021-07-10] MEDS: VASOTEC IV IVP PRN (05:24)
[2021-07-10] MEDS: PROTONIX PO SCH ×2 (05:49→17:21)
[2021-07-10] MEDS: LASIX TAB PO SCH (05:49)
[2021-07-10 06:18] LABS: BASOPHILS # (AUTO) 0.1 K/uL (0-0.2); BASOPHILS % (AUTO) 1.6 % (0.0-3.0); EOSINOPHILS # (AUTO) 0.1 K/ul (0.0-0.7); HEMATOCRIT 34.7 % (37.0-47.0); HEMOGLOBIN 11.3 g/dl (12.0-16.0); IMMATURE GRANULOCYTE % (AUTO) 0.2 % (0.0-5.0); LYMPHOCYTES # (AUTO) 2.3 K/uL (0.60-3.4); LYMPHOCYTES % (AUTO) 38.1 (10.0-50.0); MEAN CORPUSCULAR HEMOGLOBIN 30.1 pg (27.0-31.0); MEAN CORPUSCULAR HGB CONC 32.6 (31.8-35.4); MEAN CORPUSCULAR VOLUME 92.3 fl (81.0-99.0); MONOCYTES # (AUTO) 0.5 K/uL (0.4-2.0); NEUTROPHILS # (AUTO) 3.1 K/ul (2.0-6.9); NEUTROPHILS % (AUTO) 51.1 % (42.2-75.2); PLATELET COUNT 223 10^3/uL (140-440); RDW COEFFICIENT OF VARIATION 13.9 % (11.6-14.8); RED BLOOD COUNT 3.76 10^6/ul (4.20-5.40); WHITE BLOOD COUNT 6.12 K/ul (4.6-10.2)
[2021-07-10 06:31] LABS: ALANINE AMINOTRANSFERASE 9.1 U/L (0-35); ALBUMIN 3.56 g/dL (3.5-5.0); ALKALINE PHOSPHATASE 82.6 U/L (53-141); ASPARTATE AMINO TRANSFERASE 24.5 U/L (14-36); BILIRUBIN,TOTAL 0.44 mg/dL (0.2-1.3); BLOOD UREA NITROGEN 38.4 mg/dL (7-17); CALCIUM 8.71 mg/dL (8.4-10.2); CARBON DIOXIDE 28.5 mmol/L (22-30.0); CHLORIDE 106.2 mmol/L (98-107); CREATININE 1.26 mg/dL (0.60-1.30); GLUCOSE 101.5 mg/dL (74-106); POTASSIUM 4.08 mmol/L (3.5-5.1); SODIUM 140.8 mmol/L (134.5-145); TOTAL PROTEIN 6.75 g/dL (6.3-8.2)
[2021-07-10] MEDS: OXYCODONE PO PRN ×2 (06:31→13:20)
[2021-07-10] MEDS: BUSPAR PO SCH ×4 (10:38→20:14)
[2021-07-10] MEDS: FERROUS SULFATE PO SCH (10:39)
[2021-07-10] MEDS: ELIQUIS PO SCH ×2 (10:39→20:17)
[2021-07-10] MEDS: NORVASC PO SCH (10:39)
[2021-07-10] MEDS: MICRO-K CAP PO SCH (10:39)
[2021-07-10] MEDS: LOTENSIN PO SCH (10:39)
[2021-07-10] MEDS: ARICEPT PO SCH (10:39)
[2021-07-10] MEDS: ZEBETA PO SCH (10:39)
--- NOTE | 2021-07-10 11:06 | PN ---
DATE OF SERVICE: 07/08/21 SUBJECTIVE: 86-year-old white female hospitalized with pulmonary embolism. The patient's condition is stable. Now she is feeling better. The patient has moderate to severe back pain which seems to have resolved. Her appetite has improved. REVIEW OF SYSTEMS: CONSTITUTIONAL: No night sweats. No fatigue, malaise, lethargy. No fever or chills. HEENT: Eyes: No visual changes. No eye pain. No eye discharge. ENT: No runny nose. No epistaxis. No sinus pain. No sore throat. No odynophagia. No congestion. RESPIRATORY: No cough, no congestion. No hemoptysis. No shortness of breath. CARDIOVASCULAR: No angina symptoms. No CHF symptoms. No atypical chest pain for CAD. No palpitations. No PND. No orthopnea. GASTROINTESTINAL: Appetite has improved. No abdominal pain. No nausea or vomiting. No diarrhea or constipation. No hematemesis. No hematochezia. GENITOURINARY: No urgency. No frequency. No dysuria. No hematuria. No obstructive symptoms. No discharge. No pain. No significant abnormal bleeding. MUSCULOSKELETAL: Pain is under control and a lot better. NEUROLOGICAL: No headache. No neck pain. No syncope. No seizures. No dizziness. PSYCHIATRIC: Not anxious. No depression. No suicidal thoughts. No homicidal thoughts. SKIN: No rash. No lesions. No wounds. ENDOCRINE: No unexplained weight loss. No weight gain. HEMATOLOGIC/LYMPHATIC: No anemia. No purpura. No petechiae. No prolonged or excessive bleeding. No palpable lymph nodes. PHYSICAL EXAMINATION: VITAL SIGNS: Temperature 97.7, pulse 53, respiratory rate 16, blood pressure 133/59, pulse ox 96%. HEENT: Head normocephalic, atraumatic. Eyes: Extraocular muscles are intact. Pupils are equal, round and reactive to light and accommodation. Ears: No lesions. Nose appeared normal. Throat: No exudate or erythema. NECK: Supple. No JVD, no carotid bruit. No lymphadenopathy or thyromegaly. LUNGS: Clear to auscultation. Percussion note normal. Chest symmetrical. HEART: S1, S2, no S3. No murmurs. No cyanosis or clubbing. No ascites. Pulses: Dorsalis pedis and posterior tibial pulses +1 to +2 bilaterally. ABDOMEN: Soft. Nontender. Bowel sounds active. No CVA tenderness. No mass felt. EXTREMITIES: Calf muscles are nontender. No swelling of the legs noted. No edema. Full range of motion of all extremities, equal. NEUROLOGIC: No focal deficit. Cranial nerves II through XII are grossly intact. No headache. No double vision. SKIN: Not dry. Intact. Turgor - normal. LYMPHATIC: No palpable lymph nodes/no lymphedema. MUSCULOSKELETAL: Normal joints with no swelling. Muscle tone is normal. LABS: Hemoglobin 10.8, hematocrit 34, WBC 7,700, normal differential. Creatinine 1.4, BUN 32, potassium 3.9. SARS negative. ASSESSMENT: 1. Pulmonary embolism. 2. Dementia seems to have resolved. 3. Chronic kidney disease, stable. 4. Hypertension, controlled. 5. Chronic anemia. 6. Osteoarthritis. PLAN: 1. Discontinue Losartan. The patient is already on Benazepril. 2. Continue to monitor blood pressure. 3. Advised to cut down on salt. 4. Continue Eliquis. The patient was aware of her pulmonary embolism and discussed in detail. Eliquis discussed with its complication like GI bleed and intracranial bleed. Advised not to take any nonsteroida antiinflammatory. CONDITION: Stable. TIME SPENT: More than 30 minutes. Plan and coordination of the patient's care discussed in the presence of nurse. JORDAN
[2021-07-10] MEDS: HALDOL IM PRN (11:07)
[2021-07-10] MEDS: TYLENOL PO SCH ×3 (11:22→20:13)
[2021-07-10] MEDS: TYLENOL PO PRN ×2 (11:26→17:21)
[2021-07-10] MEDS: NEURONTIN PO SCH ×3 (11:26→20:13)
[2021-07-10] MEDS: LIPITOR PO SCH (18:31)
[2021-07-10] MEDS: SINEQUAN PO SCH (20:13)
[2021-07-11 05:20] LABS: BASOPHILS % (AUTO) 0.6 % (0.0-3.0); EOSINOPHILS # (AUTO) 0.1 K/ul (0.0-0.7); EOSINOPHILS % (AUTO) 1.4 % (0.0-7.0); HEMOGLOBIN 11.4 g/dl (12.0-16.0); IMMATURE GRANULOCYTE % (AUTO) 0.3 % (0.0-5.0); LYMPHOCYTES # (AUTO) 2.7 K/uL (0.60-3.4); LYMPHOCYTES % (AUTO) 42.3 (10.0-50.0); MEAN CORPUSCULAR HEMOGLOBIN 28.7 pg (27.0-31.0); MEAN CORPUSCULAR HGB CONC 30.8 (31.8-35.4); MEAN CORPUSCULAR VOLUME 93.2 fl (81.0-99.0); MONOCYTES # (AUTO) 0.5 K/uL (0.4-2.0); MONOCYTES % (AUTO) 7.1 (0-10); NEUTROPHILS # (AUTO) 3.1 K/ul (2.0-6.9); NEUTROPHILS % (AUTO) 48.3 % (42.2-75.2); PLATELET COUNT 212 10^3/uL (140-440); RDW COEFFICIENT OF VARIATION 13.9 % (11.6-14.8); RED BLOOD COUNT 3.97 10^6/ul (4.20-5.40); WHITE BLOOD COUNT 6.38 K/ul (4.6-10.2)
[2021-07-11 05:28] VITALS: TEMP 98.6
[2021-07-11 05:30] LABS: ALANINE AMINOTRANSFERASE 8.6 U/L (0-35); ALBUMIN 3.46 g/dL (3.5-5.0); ALKALINE PHOSPHATASE 89.8 U/L (53-141); ASPARTATE AMINO TRANSFERASE 20.8 U/L (14-36); BILIRUBIN,TOTAL 0.41 mg/dL (0.2-1.3); BLOOD UREA NITROGEN 32.4 mg/dL (7-17); CARBON DIOXIDE 30.4 mmol/L (22-30.0); CHLORIDE 106.9 mmol/L (98-107); CREATININE 1.47 mg/dL (0.60-1.30); GLUCOSE 92.9 mg/dL (74-106); POTASSIUM 3.86 mmol/L (3.5-5.1); SODIUM 141.9 mmol/L (134.5-145); TOTAL PROTEIN 6.51 g/dL (6.3-8.2)
[2021-07-11] MEDS: VASOTEC IV IVP PRN (05:35)
[2021-07-11] MEDS: PROTONIX PO SCH (05:36)
[2021-07-11] MEDS: LASIX TAB PO SCH (05:36)
[2021-07-11 06:24] VITALS: BP 162/73
[2021-07-11] MEDS: OXYCODONE PO PRN (07:33)
[2021-07-11] MEDS: TYLENOL PO SCH ×2 (09:07→12:23)
[2021-07-11] MEDS: ZEBETA PO SCH (09:07)
[2021-07-11] MEDS: ELIQUIS PO SCH (09:07)
[2021-07-11] MEDS: BUSPAR PO SCH ×2 (09:07→12:23)
[2021-07-11] MEDS: ARICEPT PO SCH (09:07)
[2021-07-11] MEDS: LOTENSIN PO SCH (09:07)
[2021-07-11] MEDS: FERROUS SULFATE PO SCH (09:08)
[2021-07-11] MEDS: MICRO-K CAP PO SCH (09:08)
[2021-07-11] MEDS: NORVASC PO SCH (09:08)
[2021-07-11] MEDS: NEURONTIN PO SCH ×2 (09:08→12:23)
--- NOTE | 2021-07-11 09:11 | PCM.PROG ---
Attending Provider: ATTENDING PROVIDER: Dr. HUMZA ASENZ This patient is seen with Terri Otto, Nurse Practitioner. DATE OF SERVICE: 07/11/21 SUBJECTIVE: This 86 year old /WHITE F was hospitalized 07/05/21. The patient is still confused, looking for caregiver. The family arranged for private care morning and evening at assisted living. She has tolerated Eliquis. Tomorrow will be the 7th day of Eliquis 10 mg b.i.d. then will go to 5 mg b.i.d. Venous scan of lower extremity negative. REVIEW OF SYSTEMS: CONSTITUTIONAL: No night sweats. No fatigue, malaise, lethargy. No fever or chills. HEENT: Eyes: No visual changes. No eye pain. No eye discharge. ENT: No runny nose. No epistaxis. No sinus pain. No odynophagia. No congestion. RESPIRATORY: No cough, no congestion. No hemoptysis. No shortness of breath. CARDIOVASCULAR: No angina symptoms. No CHF symptoms. No atypical chest pain for CAD. No palpitations. No orthopnea.. GASTROINTESTINAL: No abdominal pain. No nausea or vomiting. No diarrhea or constipation. No hematemesis. No hematochezia. GENITOURINARY: No urgency. No frequency. No dysuria. No hematuria. No obstructive symptoms. No discharge. No pain. No significant abnormal bleeding. MUSCULOSKELETAL: Back pain. NEUROLOGICAL: Awake, not oriented, confused. No headache. No neck pain. No syncope. No seizures. No dizziness. PSYCHIATRIC: Not anxious. No depression. No suicidal thoughts. No homicidal thoughts. SKIN: No rash. No lesions. No wounds. ENDOCRINE: No unexplained weight loss. No weight gain. HEMATOLOGIC/LYMPHATIC: No anemia. No purpura. No petechiae. No prolonged or excessive bleeding. No palpable lymph nodes. PHYSICAL EXAMINATION: GENERAL: The patient is awake, not oriented with confusion lying/sitting in bed in no distress. VITAL SIGNS: Temperature 98.6 F, Pulse 58, Respiratory Rate 16, BP 162/73, Pulse Ox 97% HEENT: Head normocephalic, atraumatic. Eyes: Extraocular muscles are intact. Pupils are equal, round and reactive to light and accommodation. Ears: No lesions. Nose appeared normal. Throat: No exudate or erythema. NECK: Supple. No JVD, no carotid bruit. No lymphadenopathy or thyromegaly. LUNGS: Diminished breath sounds. Clear to auscultation. Percussion note normal. Chest symmetrical. HEART: S1, S2, no S3. No murmurs. No cyanosis or clubbing. No ascites. Pulses: Dorsalis pedis and posterior tibial pulses +1 to +2 both sides. ABDOMEN: Soft. Non-tender. Bowel sounds active. No CVA tenderness. No mass felt. EXTREMITIES: No edema. Full range of motion of all extremities, equal. NEUROLOGIC: No focal deficit. Cranial nerves II through XII are grossly intact. No headache. No double vision. SKIN: Not dry. Intact. Turgor-normal. LYMPHATIC: No palpable lymph nodes/no lymphedema. MUSCULOSKELETAL: Normal joints with no swelling. Muscle tone is normal. LAB REVIEW: 07/11/21 04:35 07/11/21 04:35 07/11/21 04:35: Sodium 141.9, Potassium 3.86, Chloride 106.9, Carbon Dioxide 30.4 H, Anion Gap 8.46, BUN 32.4 H, Creatinine 1.47 H, Estimated GFR (MDRD) 34.00, BUN/Creatinine Ratio 22.04, Glucose 92.9, Calcium 9.00, Total Bilirubin 0.41, AST 20.8, ALT 8.6, Alkaline Phosphatase 89.8, Total Protein 6.51, Albumin 3.46 L, Globulin 3.05, Albumin/Globulin Ratio 1.13 07/11/21 04:35: WBC 6.38, RBC 3.97 L, Hgb 11.4 L, Hct 37.0, MCV 93.2, MCH 28.7, MCHC 30.8 L, RDW Coeff of Gabriella 13.9, Plt Count 212, Immature Gran % (Auto) 0.3, Neut % (Auto) 48.3, Lymph % (Auto) 42.3, Villalba % (Auto) 7.1, Eos % (Auto) 1.4, Baso % (Auto) 0.6, Neut # (Auto) 3.1, Lymph # (Auto) 2.7, Villalba # (Auto) 0.5, Eos # (Auto) 0.1, Baso # (Auto) 0.0, Immature Gran # (Auto) 0.0 ASSESSMENT: Please see below. 1. Left subsegmental PE. 2. Chronic kidney disease, Stage 3. 3. Hypertension. 4. Dementia with behavioral disturbance worsened by hospitalization. PLAN: 1. Tomorrow is the last dose of Eliquis 10 mg b.i.d. 2. Thursday start Eliquis 5 mg b.i.d. 3. [place] 5 mg #15 b.i.d p.r.n. 4. Will followup in office next week. Plan and coordination of the patient's care discussed in the presence of Technical Engineer and nurse. CONDITION: Stable SCRIBED BY: KISHA FONTANA Bulk Tank Driver scribed while in presence of service performed by Dr. Saenz/Terri Otto APRN on 07/11/21 ([id number])
--- NOTE | 2021-07-11 12:07 | CM.DICTOOL ---
ADMISSION: 07/05/21 17:04 DISCHARGE: 2020 DATE OF SERVICE: 07/11/21 FINAL DIAGNOSIS PULMONARY EMBOLISM, SUBSEGMENTAL LLL HYPERTENSION BILATERAL LEG EDEMA DEMENTIA WITH BEHAVIORS ANEMIA DYSLIPIDEMIA CHRONIC KIDNEY DISEASE, STAGE 3 DEPRESSION DJD SPINE ESOPHAGEAL STRICTURE KYPHOSIS CERVICAL RADICULOPATHY LAST VITALS Temp Pulse Resp BP Pulse Ox 98.6 F 58 L 16 162/73 H 94 L 07/11/21 05:27 07/11/21 06:23 07/11/21 08:00 07/11/21 06:23 07/11/21 09:46 TAKE THESE MEDICATIONS AT HOME Acetaminophen (Acetaminophen 500 Mg Tablet) 500 mg PO 0800,1200,2100 [facility] Last Admin: 07/11/21 09:07 Dose: 500 mg Documented by: Amlodipine Besylate (Amlodipine Besylate 5 Mg Tablet) 5 mg PO DAILY [facility] (NEW RX) Last Admin: 07/11/21 09:08 Dose: 5 mg Documented by: Apixaban (Apixaban 5 Mg Tab) 10 mg PO BID [facility] (NEW RX) Last Admin: 07/11/21 09:07 Dose: 10 mg Documented by: APIXABAN (ELIQUIS) 5 MG PO BID [facility] (NEW RX STARTING ON 07-13-2021) Atorvastatin Calcium (Atorvastatin Calcium 20 Mg Tablet) 40 mg PO 1700 [facility] Last Admin: 07/10/21 18:31 Dose: 40 mg Documented by: Benazepril HCl (Benazepril Hcl 10 Mg Tablet) 40 mg PO DAILY [facility] Last Admin: 07/11/21 09:07 Dose: 40 mg Documented by: Bisoprolol Fumarate (Bisoprolol Fumarate 5 Mg Tablet) 5 mg PO DAILY [facility] Last Admin: 07/11/21 09:07 Dose: 5 mg Documented by: Buspirone HCl (Buspirone Hcl 10 Mg Tablet) 5 mg PO QID [facility] Last Admin: 07/11/21 09:07 Dose: 5 mg Documented by: Donepezil HCl (Donepezil Hcl 10 Mg Tablet) 10 mg PO DAILY [facility] Last Admin: 07/11/21 09:07 Dose: 10 mg Documented by: Doxepin HCl (Doxepin Hcl 25 Mg Capsule) 25 mg PO BEDTIME [facility] Last Admin: 07/10/21 20:13 Dose: 25 mg Documented by: Ferrous Sulfate (Ferrous Sulfate 324 Mg Tablet.Dr) 324 mg PO DAILY [facility] Last Admin: 07/11/21 09:08 Dose: 324 mg Documented by: Furosemide (Furosemide 40 Mg Tablet) 40 mg PO QDAC [facility] Last Admin: 07/11/21 05:36 Dose: 40 mg Documented by: Gabapentin (Gabapentin 300 Mg Capsule) 300 mg PO 0900,1200,2100 [facility] Last Admin: 07/11/21 09:08 Dose: 300 mg Documented by: NORCO 5-325 MG BID PRN PAIN (NEW RX) ESOMEPRAZOLE MAGNESIUM (NEXIUM) 40 Mg Tablet.) 40 mg PO BIDAC [facility] Last Admin: 07/11/21 05:36 Dose: 40 mg Documented by: Potassium Chloride (Potassium Chloride 10 Meq Capsule.Er) 10 meq PO DAILYWM [facility] Last Admin: 07/11/21 09:08 Dose: 10 meq Documented by: PROLIA 60 MG SQ DIRECTED ALLERGIES iron Adverse Reaction (Verified 03/07/19 09:44) Diarrhea DISCONTINUED MEDICATIONS NONE NEW PRESCRIPTIONS: ELIQUIS 10 MG BID UNTIL 07-13-21 ELIQUIS 5 MG BID STARTING ON 07-13-21 NORCO 5-325 MG BID PRN PAIN NORVASC 5 MG DAILY SMOKING: NOT APPLICABLE DISEASE SPECIFIC EDUCATION: PATIENT HAS DEMENTIA AND IS ORIENTED TO PERSON ONLY SON ADVISED OF ELIQUIS, PURPOSE AND RISK OF BLEEDING; ESPECIALLY INTRACRANIAL WITH FALL LAB REVIEW: 07/11/21 04:35 07/11/21 04:35 07/11/21 04:35: Sodium 141.9, Potassium 3.86, Chloride 106.9, Carbon Dioxide 30 .4 H, Anion Gap 8.46, BUN 32.4 H, Creatinine 1.47 H, Estimated GFR (MDRD) 34.00, BUN/Creatinine Ratio 22.04, Glucose 92.9, Calcium 9.00, Total Bilirubin 0.41, AST 20.8, ALT 8.6, Alkaline Phosphatase 89.8, Total Protein 6.51, Albumin 3.46 L , Globulin 3.05, Albumin/Globulin Ratio 1.13 07/11/21 04:35: WBC 6.38, RBC 3.97 L, Hgb 11.4 L, Hct 37.0, MCV 93.2, MCH 28.7, MCHC 30.8 L, RDW Coeff of Gabriella 13.9, Plt Count 212, Immature Gran % (Auto) 0.3, Neut % (Auto) 48.3, Lymph % (Auto) 42.3, [place] % (Auto) 7.1, Eos % (Auto) 1.4, Baso % (Auto) 0.6, Neut # (Auto) 3.1, Lymph # (Auto) 2.7, [place] # (Auto) 0.5, Eos # (Auto) 0.1, Baso # (Auto) 0.0, Immature Gran # (Auto) 0.0 PLAN: DISCHARGE TO [facility] DIET: REGULAR DIET TOLERATED ACTIVITY: RESUME TOLERATED; USING CANE OR WALKER AN APPOINTMENT IS SCHEDULED WITH DR. SAENZ/BETO MCINTOSH APRN/LILI RILEY APRN ON AT 1 PM CODE STATUS: DO NOT RESUSCITATE MS. RUIZ IS ALERT TO PERSON ONLY. SHE RECENTLY MOVED TO [facility] AFTER THE OF HER . HER FAMILY HAS ARRANGED FOR PRIVATE CAREGIVERS DURING THE DAY; 4 HOURS DURING THE MORNING AND 1 HOUR IN THE EVENING. THE SON, SCARLET HAS CONTACTED THE CAREGIVER GROUP TO INQUIRE ABOUT STAYING 8 HOURS FOR THE FIRST FEW NIGHTS AFTER HER RETURN TO [facility]. HE ALSO PLANS TO INQUIRE ABOUT EXTENDING THE EVENING HOURS TO AT LEAST 2 HOURS. MS. RUIZ IS ABLE TO TRANSFER PER SELF TO THE CHAIR AND HAS BEEN OUT OF BED PER SELF DURING HER STAY. SHE HAS ALSO BEEN AMBULATORY IN THE [place] PER SELF AND WITH THE PHYSICAL THERAPY STAFF. USE OF ROLLING WALKER IS ENCOURAGED. PATIENT HAS SLOW, STEADY GAIT. MS. RUIZ IS INDEPENDENT WITH FEEDING. MEAL INTAKES ARE 25-75%. NO DIFFICULTY SWALLOWING HAS BEEN NOTED. SHE IS CONTINENT OF BOWEL AND BLADDER, BUT WEARS DEPENDS UNDERGARMENTS DUE TO DRIBBLING WITH URINATION. HYDRATION STATUS IS GOOD. SKIN IS INTACT AND FREE OF OPEN WOUNDS, RASHES OR IRRITATION. MD BETO BRAY, ISIAH
--- NOTE | 2021-07-11 13:47 | DS ---
DATE OF SERVICE: 07/11/21 CODE STATUS: DO NOT RESUSCITATE FINAL DIAGNOSIS: 1. PULMONARY EMBOLISM, SUBSEGMENTAL LLL 2. HYPERTENSION 3. BILATERAL LEG EDEMA 4. DEMENTIA WITH BEHAVIORS 5. ANEMIA 6. DYSLIPIDEMIA 7. CHRONIC KIDNEY DISEASE, STAGE 3 8. DEPRESSION 9. DJD SPINE 10. 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 CERVICAL RADICULOPATHY LAST VITALS Temp Pulse Resp BP Pulse Ox 98.6 F 58 L 16 162/73 H 94 L 07/11/21 05:27 07/11/21 06:23 07/11/21 08:00 07/11/21 06:23 07/11/21 09:46 DISCHARGE INSTRUCTIONS: 1. DISCHARGE TO [facility]. 2. AN APPOINTMENT IS SCHEDULED WITH DR. SAENZ/BETO MCINTOSH APRN/LILI RILEY APRN ON AT 1 PM. MEDICATIONS AT DISCHARGE: Acetaminophen (Acetaminophen 500 Mg Tablet) 500 mg PO 0800,1200,2100 [facility] Last Admin: 07/11/21 09:07 Dose: 500 mg Documented by: Amlodipine Besylate (Amlodipine Besylate 5 Mg Tablet) 5 mg PO DAILY [facility] (NEW RX) Last Admin: 07/11/21 09:08 Dose: 5 mg Documented by: Apixaban (Apixaban 5 Mg Tab) 10 mg PO BID [facility] (NEW RX) Last Admin: 07/11/21 09:07 Dose: 10 mg Documented by: APIXABAN (ELIQUIS) 5 MG PO BID [facility] (NEW RX STARTING ON 07-13-2021) Atorvastatin Calcium (Atorvastatin Calcium 20 Mg Tablet) 40 mg PO 1700 [facility] Last Admin: 07/10/21 18:31 Dose: 40 mg Documented by: Benazepril HCl (Benazepril Hcl 10 Mg Tablet) 40 mg PO DAILY [facility] Last Admin: 07/11/21 09:07 Dose: 40 mg Documented by: Bisoprolol Fumarate (Bisoprolol Fumarate 5 Mg Tablet) 5 mg PO DAILY [facility] Last Admin: 07/11/21 09:07 Dose: 5 mg Documented by: Buspirone HCl (Buspirone Hcl 10 Mg Tablet) 5 mg PO QID [facility] Last Admin: 07/11/21 09:07 Dose: 5 mg Documented by: Donepezil HCl (Donepezil Hcl 10 Mg Tablet) 10 mg PO DAILY [facility] Last Admin: 07/11/21 09:07 Dose: 10 mg Documented by: Doxepin HCl (Doxepin Hcl 25 Mg Capsule) 25 mg PO BEDTIME [facility] Last Admin: 07/10/21 20:13 Dose: 25 mg Documented by: Ferrous Sulfate (Ferrous Sulfate 324 Mg Tablet.) 324 mg PO DAILY [facility] Last Admin: 07/11/21 09:08 Dose: 324 mg Documented by: Furosemide (Furosemide 40 Mg Tablet) 40 mg PO QDAC [facility] Last Admin: 07/11/21 05:36 Dose: 40 mg Documented by: Gabapentin (Gabapentin 300 Mg Capsule) 300 mg PO 0900,1200,2100 [facility] Last Admin: 07/11/21 09:08 Dose: 300 mg Documented by: NORCO 5-325 MG BID PRN PAIN (NEW RX) ESOMEPRAZOLE MAGNESIUM (NEXIUM) 40 Mg Tablet.) 40 mg PO BIDAC [facility] Last Admin: 07/11/21 05:36 Dose: 40 mg Documented by: Potassium Chloride (Potassium Chloride 10 Meq Capsule.Er) 10 meq PO DAILYWM [facility] Last Admin: 07/11/21 09:08 Dose: 10 meq Documented by: PROLIA 60 MG SQ DIRECTED NEW PRESCRIPTIONS: ELIQUIS 10 MG BID UNTIL 07-13-21 ELIQUIS 5 MG BID STARTING ON 07-13-21 NORCO 5-325 MG BID PRN PAIN NORVASC 5 MG DAILY DISCONTINUED MEDICATIONS: NONE DIET INSTRUCTIONS: REGULAR DIET TOLERATED ACTIVITY: RESUME TOLERATED; USING CANE OR WALKER SMOKING: NOT APPLICABLE DISEASE SPECIFIC EDUCATION: PATIENT HAS DEMENTIA AND IS ORIENTED TO PERSON ONLY SON ADVISED OF ELIQUIS, PURPOSE AND RISK OF BLEEDING; ESPECIALLY INTRACRANIAL WITH FALL HOSPITAL COURSE: This is an 86-year-old white female who originally had a CT of the chest done as an outpatient. A critical result was found and was unexpected that she had a left lower lobe subsegmental pulmonary embolism. She was a direct admit from the office, went through the Covid tent outside. She was negative. She was not experiencing any shortness of breath or tachycardia. She was started on Eliquis 10 mg p.o. b.i.d. She has tolerated this well. Hemoglobin has remained stable. Blood pressure has been stable although she did have some episodes where it became elevated so we did start her on Norvasc 5 mg p.o. daily. This is the only other new prescription. While she was here she did suffer some hospital psychosis. She does have moderate dementia. I think this is worsened by change of place and the fact that she is not able to have any visitors. She did require Haldol in the evenings for a few nights. She was having some hallucinations and paranoid behavior. Today, all labs are in stable condition. Hemoglobin is at 11.4. She has chronic kidney disease. This is stable with a BUN of 32 and creatinine 1.4. She is going to go back to assisted living. The family has arranged for her to have 24 hour care. She will complete her 7 days of 10 mg p.o. b.i.d. of Eliquis tomorrow and then on Thursday she will start 5 mg Eliquis p.o. b.i.d. from there on out. The Venous Scan revealed she had no DVT. Again the PE was incidental finding but she appears to be doing relatively well so hopefully her cognitive condition will go back to baseline once she is back in familiar surroundings. We will see her back in the office next week and followup with her as needed. TIME SPENT: More than 60 minutes. JORDAN
--- NOTE | 2021-07-12 13:32 | PN ---
DATE OF SERVICE: 07/09/2021 SUBJECTIVE: The patient was seen and examined with the Nurse Practitioner. The patient was hospitalized with pulmonary embolism. The patient's condition has improved. Her venous scan is negative. The patient's condition is stable. TIME SPENT: More than 30 minutes. Plan and coordination of the patient's care discussed in the presence of nurse. JORDAN
--- NOTE | 2021-07-15 09:29 | OTDC ---
Date of Evaluation:07/05/21 Diagnosis:[SOA, weak gait, Confused] Number of visits:[] Last Date of Service:[07/11/21] Reason For Discharge:[Pt discharged to Assisted Living Facility] Discharge Summary:[Pt requires assist for safety of ADLS. Pt discharged to [facility].] JORDAN
== END 2021-07-11 13:20 | disposition home or self-care (01) | DRG 683 ==
LOC: RAD 09:59 → MEDSURG A 17:04
PROVIDERS: ADMIT Internal Medicine; ATTEND Internal Medicine
DX: E87.5 Hyperkalemia; R60.0 Localized edema; I10 Essential (primary) hypertension; M19.90 Unspecified osteoarthritis, unspecified site; F03.91 Unspecified dementia, unspecified severity, with behavioral disturbance; Z20.822 Contact with and (suspected) exposure to COVID-19; D64.9 Anemia, unspecified; R53.1 Weakness; F32.9 Major depressive disorder, single episode, unspecified; K22.2 Esophageal obstruction; R79.89 Other specified abnormal findings of blood chemistry; N18.30 Chronic kidney disease, stage 3 unspecified; M54.12 Radiculopathy, cervical region; M40.209 Unspecified kyphosis, site unspecified